=== PATIENT | female | born 1935 | race Caucasian/White ===

== ENCOUNTER 2020-10-20 11:56 | Outpatient (REF) | payer MEDICARE, SELFPAY ==
[2020-10-20 12:20] VITALS: BP 169/77; PULSE 69; RESP 16; TEMP 36.9; O2SAT 98; BMI 25.9
== END 2020-10-20 11:57 | disposition home or self-care (01) ==
LOC: HO.MS 11:56
PROVIDERS: PCP Internal Medicine; Visit Provider Ophthalmology
PROC: (CPT 66821; principal; 2020-10-20 13:50)
DX: H26.492 Other secondary cataract, left eye (principal); Z96.1 Presence of intraocular lens; I10 Essential (primary) hypertension; Z79.899 Other long term (current) drug therapy
CPT/HCPCS: 66821

== ENCOUNTER 2020-10-27 09:58 | Outpatient (REF) | payer MEDICARE, SELFPAY ==
[2020-10-27 10:11] VITALS: BP 183/85; PULSE 70; RESP 16; TEMP 36.1; O2SAT 98
[2020-10-27 11:15] VITALS: BMI 26.2
== END 2020-10-27 09:59 | disposition home or self-care (01) ==
LOC: HO.MS 09:58
PROVIDERS: PCP Internal Medicine; Visit Provider Ophthalmology
PROC: (CPT 66821; principal; 2020-10-27 13:50)
DX: H26.491 Other secondary cataract, right eye (principal); Z96.1 Presence of intraocular lens; H35.433 Paving stone degeneration of retina, bilateral; I10 Essential (primary) hypertension; Z79.899 Other long term (current) drug therapy
CPT/HCPCS: 66821

== ENCOUNTER 2023-08-17 13:14 | Outpatient (AMB) | payer MEDICARE, SELFPAY ==
--- NOTE | 2023-08-17 13:18 | MHC.OFFVIS ---
Vital Signs 08/17/23 13:21 08/17/23 13:28 Height 5 ft Weight 116 lb BMI 22.7 BP 112/73 Blood Pressure Location Lt brachial Lt brachial Position Sitting Sitting Respiration 14 Pulse 110 H Pulse Source Pulse Oximeter Pulse Oximeter Pulse Oximetry (%) 97 Oxygen Delivery Method Room Air Room Air Intake Visit Reasons: Low Back Pain/Spinal Stenosis Allergies perfume Allergy (Unknown, Unverified 08/17/23 13:25) UNKNOWN mirabegron [From Myrbetriq] Adverse Reaction (Intermediate, Verified 08/17/23 13:25) Nausea Medication List - Last Reconciled 08/17/23 by Xin Vinson diclofenac sodium 75 mg PO ONCE PRN diltiazem HCl ER 120 mg PO ONCE estradiol 0.01%(0.1mg/gram) 1 g vaginal 3XW hydroxyzine HCl 25 mg PO BID PRN metoprolol succinate ER 25 mg PO DAILY psyllium husk (Daily Fiber) 0.4 grams PO DAILY trazodone 50 mg PO BEDTIME PRN vitamins A,C,W-znve-fldhwv 4,296 mcg-226 mg-90 mg (PreserVision AREDS) 1 cap PO BID HPI Comments Details: Alessandra is a very pleasant 88-year-old female who presents to the office today for evaluation management of her chronic lower back pain Patient reports she has been suffering with this pain for many years. She has a history of L4-5 fusion after synovial cyst greater than 20 years ago. After the fusion she did not have pain again until a couple years ago. She endorses midline lower back pain that goes down both legs. Weakness and fatigue of the lower extremities. Worse with standing and walking. Improves with rest. Pain today is rated as a 9/10, constant throughout the day. Denies recent MRI. Underwent injections at [facility] for approximately 3 years, most recent was 1 year ago. She states that they were no longer effective. Did have positive spinal cord stimulator trial but did not want to proceed with implant. She is hesitant on procedures that require general anesthesia. She is currently taking diclofenac with minimal improvement of her symptoms. Completed physical therapy and continues with home exercise program. She states she has been very active in her home exercise program but the symptoms persist. Denies red flag symptoms including new loss of bowel, bladder or saddle anesthesia. In terms of muscle damage condition is described as jumping, stabbing, sharp, tingling, tiring, exhausting, aching, punishing, radiating. Pain is negatively impacting patient's enjoyment of life, general activity, normal function, walking and sleep Patient also endorses some burning, numbness and tingling to the bottoms of both feet. Diagnosed with peripheral neuropathy in the past. Worse in the night and often interferes with her sleep. Denies current use of anticoagulants. Denies implantable devices, pacemaker defibrillator. Denies current use of tobacco, nicotine, alcohol or illicit substances. [facility] Medical History (Updated 08/17/23 @ 14:20 by Lashonda Boyd APRN, ANNA MARIE) High cholesterol Hypertension Restless legs Arthritis Surgical History (Updated 08/17/23 @ 14:19 by Lashonda Boyd APRN, ANNA MARIE) History of lumbar fusion Review of Systems Const All systems reviewed & are unremarkable except as noted in HPI and below Physical Exam Vital Signs: Last Vital Signs Pulse 110 H 08/17/23 13:28 Resp 14 08/17/23 13:28 BP 112/73 08/17/23 13:28 Pulse Ox 97 08/17/23 13:28 Oxygen Delivery Method Room Air 08/17/23 13:28 BMI result Body Mass Index 22.7 General: awake, alert, oriented. Answers questions appropriately. Fully engaged in examination. Skin: warm, dry, intact HEENT: Normocephalic. Hearing intact. Cardiac: External chest normal in appearance. Respiratory: No cough, audible wheezing or stridor. Abdomen: without gross distension. MS: No obvious swelling or deformities. Able to stand on bilateral tiptoes and bilateral heels.? Able to transition from sit to stand unassisted. Ambulates with bilaterally normal heel strike and toe off Minimally tender to palpation midline lumbar vertebrae and lumbar paraspinal muscles SLR negative bilaterally Negative footdrop Negative clonus Bilateral lower extremity strength 5/5 Nontender over bilateral PSIS Neurological: Oriented to person, place, time and situation. Thought process intact. No gait abnormalities appreciated. Psychiatric: Appropriate mood and affect. Good judgment and insight. Assessment & Plan Assessment & Plan (1) Neurogenic claudication due to lumbar spinal stenosis: Code(s): M48.062 - Spinal stenosis, lumbar region with neurogenic claudication Category: Medical (2) Spinal stenosis: Code(s): M48.00 - Spinal stenosis, site unspecified Category: Medical (3) Peripheral neuropathy: Code(s): G62.9 - Polyneuropathy, unspecified Category: Medical (4) Post laminectomy syndrome: Code(s): M96.1 - Postlaminectomy syndrome, not elsewhere classified Category: Medical Plan Alessandra is a very pleasant 88 year old female who presented to the office today for evaluation management of her chronic lower back pain History, physical exam and provocative testing consistent with spinal stenosis with neurogenic claudication Records have been requested for review from [facility] where she previously underwent lumbar injections. MRI lumbar spine ordered for further evaluation Plan for fluoroscopy guided caudal epidural steroid injection with local anesthetic pending review of MRI results. Patient also suffering with bilateral peripheral neuropathy. Discussed options for treatment. Will submit PA for Qutenza topical application. Patient advised on procedure including preparation and EMLA application prior to appointment. She is aware treatment is done in office and he will be here for 30minutes during each visit. All questions and concerns were answered, patient agrees with the plan. Follow-up as planned for topical capsaicin and MRI follow-up. Orders: Orders MR lumbar spine wo con Today M48.062 - Spinal stenosis, lumbar region with neurogenic claudication Coding Level of Care Code New Pt Level 4 (59343) Diagnoses Neurogenic claudication due to lumbar spinal stenosis M48.062 Spinal stenosis M48.00 Peripheral neuropathy G62.9 Post laminectomy syndrome M96.1
[2023-08-17 13:28] VITALS: BP 112/73; PULSE 110; RESP 14; O2SAT 97; BMI 22.7
== END 2023-08-17 13:59 | disposition home or self-care (01) ==
PROVIDERS: PCP Internal Medicine; Visit Provider Registered Nurse Emergency
DX: M48.062 Spinal stenosis, lumbar region with neurogenic claudication (principal); M48.00 Spinal stenosis, site unspecified; G62.9 Polyneuropathy, unspecified; M96.1 Postlaminectomy syndrome, not elsewhere classified
CPT/HCPCS: 99204

== ENCOUNTER → 2023-08-17 13:14 | Outpatient (BNVA) | payer MEDICARE, SELFPAY | PROVIDERS: PCP Internal Medicine; Visit Provider Registered Nurse Emergency | DX: M48.062 Spinal stenosis, lumbar region with neurogenic claudication (principal); G62.9 Polyneuropathy, unspecified; M96.1 Postlaminectomy syndrome, not elsewhere classified | CPT/HCPCS: 99202 ==

== ENCOUNTER 2023-09-26 15:37 | Outpatient (REF) | payer MEDICARE, SELFPAY ==
--- NOTE | ~2023-09-26 | MR_ITS ---
EXAMINATION: MR LUMBAR SPINE WITHOUT CONTRAST CLINICAL INFORMATION: Chronic severe lower back pain, leg pain COMPARISON: None TECHNIQUE: MRI of the lumbar spine was obtained using routine sequences without contrast. FINDINGS: Mild rightward curvature of the lumbar spine. Mild right lateral listhesis of L3 on L4 and L4 on L5. Trace anterolisthesis of L3 on L4 and grade 1 anterolisthesis of L4 on L5. No suspicious marrow signal or focal osseous lesion. Mixed type 1 and type 2 signal changes at L3-L4. The vertebral body heights are maintained. Multilevel disc dessication and height loss. The conus medullaris terminates at the level of L1-L2. The distal spinal cord is normal in appearance. The cauda equina nerve roots appear normal. Atrophy of the paravertebral musculature at the lumbosacral junction is noted. 2.5 cm subcutaneous nodule in the right dorsal soft tissues at the lumbosacral junction which extends to the skin surface and likely represents a sebaceous cyst. Limited evaluation of the intra-abdominal structures without significant abnormalities. Bilateral renal cysts for which no further imaging follow-up is recommended. The abdominal aorta is of normal contour and caliber. SPINAL LEVELS: Visualized only on sagittal imaging, small disc protrusions from T8-T9 to T10-T11 partially indents the ventral thecal sac but do not contribute to significant spinal canal stenosis. L1-L2: No significant spinal canal or neuroforaminal narrowing. Mild facet arthropathy. L2-L3: No significant spinal canal or neuroforaminal narrowing. Shallow disc bulge and mild facet arthropathy. L3-L4: Anterolisthesis of posterior disc and covering. Severe facet arthropathy. Ligament flavum thickening. Mild central spinal canal stenosis. Subarticular zone narrowing with impingement of the traversing L4 nerve roots. Moderate right and severe left neural foraminal narrowing with impingement of the exiting left L3 nerve root. L4-L5: Post laminectomy changes. Anterolisthesis of posterior disc and covering. Severe facet arthropathy. No significant central spinal canal stenosis. Moderate bilateral neural foraminal narrowing. L5-S1: Moderate facet arthropathy with bilateral joint effusions, right greater than left. Left eccentric disc bulge. No significant central spinal canal stenosis. Severe right neural foraminal narrowing with impingement of the exiting right L5 nerve root. MR/MR lumbar spine wo con IMPRESSION: 1. Multilevel lumbar spondylosis as described above, worst at L3-L4 where there is mild spinal canal stenosis, subarticular zone narrowing with impingement of the traversing L4 nerve roots, and moderate right and severe left neural foraminal narrowing with impingement of the exiting left L3 nerve root. 2. At L4-L5, there are post laminectomy changes and grade 1 anterolisthesis of L4 on L5 without significant spinal canal stenosis. There is moderate bilateral neural foraminal narrowing at this level. 3. At L5-S1, there is severe right neural foraminal narrowing with impingement of the exiting right L5 nerve root. Electronically signed by: Isreal Rodrigues MD 10/06/2023 11:09 AM EDT
== END 2023-09-26 15:38 | disposition home or self-care (01) ==
LOC: HO.MRI 15:37
PROVIDERS: PCP Internal Medicine; Visit Provider Registered Nurse Emergency
DX: M48.062 Spinal stenosis, lumbar region with neurogenic claudication (principal)
CPT/HCPCS: 72148

== ENCOUNTER 2023-10-07 10:43 | Outpatient (AMB) | payer MEDICARE, SELFPAY ==
[2023-10-07 10:59] VITALS: BP 182/77; PULSE 73; O2SAT 98; BMI 23.4
--- NOTE | 2023-10-07 10:59 | MHC.OFFVIS ---
Vital Signs 10/07/23 10:59 Height 5 ft Weight 120 lb BMI 23.4 BP 182/77 H Blood Pressure Location Lt brachial Position Sitting Pulse 73 Pulse Source Pulse Oximeter Pulse Oximetry (%) 98 Oxygen Delivery Method Room Air Intake Visit Reasons: MRI results Allergies perfume Allergy (Unknown, Unverified 10/07/23 10:59) UNKNOWN mirabegron [From Myrbetriq] Adverse Reaction (Intermediate, Verified 10/07/23 10:59) Nausea Medication List - Last Reconciled 10/07/23 by Xin Vinson diclofenac sodium 75 mg PO ONCE PRN diltiazem HCl ER 120 mg PO ONCE estradiol 0.01%(0.1mg/gram) 1 g vaginal 3XW hydroxyzine HCl 25 mg PO BID PRN metoprolol succinate ER 25 mg PO DAILY psyllium husk (Daily Fiber) 0.4 grams PO DAILY trazodone 50 mg PO BEDTIME PRN vitamins A,C,J-jrsr-xzvodz 4,296 mcg-226 mg-90 mg (PreserVision AREDS) 1 cap PO BID HPI Comments Details: Patient presents back to the office today for follow-up, review of recent MRI MRI reviewed, results as per below Records from [facility] have been reviewed and discussed with patient today Pain today is rated as a 5/10, constant throughout the day. Worse with standing and walking. She reports the pain is impacting her activities of daily living, general activity, mood and ability to care for herself Previously underwent multiple rounds of steroid injections at [facility], eventually the stopped working for her Had a successful Nevro spinal cord stimulator trial that improved her pain, function and mobility. She was hesitant to proceed with surgery due to risks associated with anesthesia therefore she never returned for follow up at [facility] to schedule implant Denies red flag symptoms including new loss of bowel, bladder or saddle anesthesia Denies change in medications, diagnoses or allergies Intake note: Alessandra is a very pleasant 88-year-old female who presents to the office today for evaluation management of her chronic lower back pain Patient reports she has been suffering with this pain for many years. She has a history of L4-5 fusion after synovial cyst greater than 20 years ago. After the fusion she did not have pain again until a couple years ago. She endorses midline lower back pain that goes down both legs. Weakness and fatigue of the lower extremities. Worse with standing and walking. Improves with rest. Pain today is rated as a 9/10, constant throughout the day. Denies recent MRI. Underwent injections at [facility] for approximately 3 years, most recent was 1 year ago. She states that they were no longer effective. Did have positive spinal cord stimulator trial but did not want to proceed with implant. She is hesitant on procedures that require general anesthesia. She is currently taking diclofenac with minimal improvement of her symptoms. Completed physical therapy and continues with home exercise program. She states she has been very active in her home exercise program but the symptoms persist. Denies red flag symptoms including new loss of bowel, bladder or saddle anesthesia. In terms of muscle damage condition is described as jumping, stabbing, sharp, tingling, tiring, exhausting, aching, punishing, radiating. Pain is negatively impacting patient's enjoyment of life, general activity, normal function, walking and sleep Patient also endorses some burning, numbness and tingling to the bottoms of both feet. Diagnosed with peripheral neuropathy in the past. Worse in the night and often interferes with her sleep. Denies current use of anticoagulants. Denies implantable devices, pacemaker defibrillator. Denies current use of tobacco, nicotine, alcohol or illicit substances. [facility] Medical History (Updated 08/17/23 @ 14:20 by Lashonda Boyd APRN, ANNA MARIE) High cholesterol Hypertension Restless legs Arthritis Surgical History (Updated 08/17/23 @ 14:19 by Lashonda Boyd APRN, ANNA MARIE) History of lumbar fusion Review of Systems Const All systems reviewed & are unremarkable except as noted in HPI and below Physical Exam Vital Signs: Last Vital Signs Pulse 73 10/07/23 10:59 BP 182/77 H 10/07/23 10:59 Pulse Ox 98 10/07/23 10:59 Oxygen Delivery Method Room Air 10/07/23 10:59 BMI result Body Mass Index 23.4 General: awake, alert, oriented. Answers questions appropriately. Fully engaged in examination. Skin: warm, dry, intact HEENT: Normocephalic. Hearing intact. Cardiac: External chest normal in appearance. Respiratory: No cough, audible wheezing or stridor. Abdomen: without gross distension. MS: No obvious swelling or deformities. Able to stand on bilateral tiptoes and bilateral heels.? Able to transition from sit to stand unassisted. Ambulates with bilaterally normal heel strike and toe off Minimally tender to palpation midline lumbar vertebrae and lumbar paraspinal muscles SLR negative bilaterally Negative footdrop Negative clonus Bilateral lower extremity strength 5/5 Nontender over bilateral PSIS Neurological: Oriented to person, place, time and situation. Thought process intact. No gait abnormalities appreciated. Psychiatric: Appropriate mood and affect. Good judgment and insight. Results Reviewed Results Reviewed: 09/26/23 MR/MR lumbar spine wo con FINDINGS: Mild rightward curvature of the lumbar spine. Mild right lateral listhesis of L3 on L4 and L4 on L5. Trace anterolisthesis of L3 on L4 and grade 1 anterolisthesis of L4 on L5. No suspicious marrow signal or focal osseous lesion. Mixed type 1 and type 2 signal changes at L3-L4. The vertebral body heights are maintained. Multilevel disc dessication and height loss. The conus medullaris terminates at the level of L1-L2. The distal spinal cord is normal in appearance. The cauda equina nerve roots appear normal. Atrophy of the paravertebral musculature at the lumbosacral junction is noted. 2.5 cm subcutaneous nodule in the right dorsal soft tissues at the lumbosacral junction which extends to the skin surface and likely represents a sebaceous cyst. Limited evaluation of the intra-abdominal structures without significant abnormalities. Bilateral renal cysts for which no further imaging follow-up is recommended. The abdominal aorta is of normal contour and caliber. SPINAL LEVELS: Visualized only on sagittal imaging, small disc protrusions from T8-T9 to T10-T11 partially indents the ventral thecal sac but do not contribute to significant spinal canal stenosis. L1-L2: No significant spinal canal or neuroforaminal narrowing. Mild facet arthropathy. L2-L3: No significant spinal canal or neuroforaminal narrowing. Shallow disc bulge and mild facet arthropathy. L3-L4: Anterolisthesis of posterior disc and covering. Severe facet arthropathy. Ligament flavum thickening. Mild central spinal canal stenosis. Subarticular zone narrowing with impingement of the traversing L4 nerve roots. Moderate right and severe left neural foraminal narrowing with impingement of the exiting left L3 nerve root. L4-L5: Post laminectomy changes. Anterolisthesis of posterior disc and covering. Severe facet arthropathy. No significant central spinal canal stenosis. Moderate bilateral neural foraminal narrowing. L5-S1: Moderate facet arthropathy with bilateral joint effusions, right greater than left. Left eccentric disc bulge. No significant central spinal canal stenosis. Severe right neural foraminal narrowing with impingement of the exiting right L5 nerve root. IMPRESSION: 1. Multilevel lumbar spondylosis as described above, worst at L3-L4 where there is mild spinal canal stenosis, subarticular zone narrowing with impingement of the traversing L4 nerve roots, and moderate right and severe left neural foraminal narrowing with impingement of the exiting left L3 nerve root. 2. At L4-L5, there are post laminectomy changes and grade 1 anterolisthesis of L4 on L5 without significant spinal canal stenosis. There is moderate bilateral neural foraminal narrowing at this level. 3. At L5-S1, there is severe right neural foraminal narrowing with impingement of the exiting right L5 nerve root. Assessment & Plan Assessment & Plan (1) Spinal stenosis: Code(s): M48.00 - Spinal stenosis, site unspecified Category: Medical (2) Peripheral neuropathy: Code(s): G62.9 - Polyneuropathy, unspecified Category: Medical (3) Post laminectomy syndrome: Code(s): M96.1 - Postlaminectomy syndrome, not elsewhere classified Category: Medical Plan Alessandra is a very pleasant 88 year old female who presented to the office today for follow-up lower back pain and review of recent MRI MRI reviewed, results as per above Records from [facility] have been reviewed. Patient has exhausted conservative therapy including PT, home exercise program, nonsteroidal anti-inflammatory medications, injections Discussed at length the patient's diagnosis and treatment options. She has successfully undergone Nevro spinal cord stimulator trial at [facility]. She would like to proceed with implant at this time. Mental health clearance has been completed. We will schedule for fluoroscopy guided Nevro spinal cord stimulator implant with anesthesia All questions and concerns were answered, patient agrees with the plan. Follow up after procedure, sooner if needed Coding Level of Care Code Est Pt Level 3 (19102) Complex EM visit Add On G2211 Diagnoses Spinal stenosis M48.00 Peripheral neuropathy G62.9 Post laminectomy syndrome M96.1
== END 2023-10-07 11:38 | disposition home or self-care (01) ==
PROVIDERS: PCP Internal Medicine; Referring Provider Registered Nurse; Visit Provider Registered Nurse Emergency
DX: M48.00 Spinal stenosis, site unspecified (principal); G62.9 Polyneuropathy, unspecified; M96.1 Postlaminectomy syndrome, not elsewhere classified
CPT/HCPCS: 99213; G2211

== ENCOUNTER → 2023-10-07 10:43 | Outpatient (BNVA) | payer MEDICARE, SELFPAY | PROVIDERS: PCP Internal Medicine; Referring Provider Registered Nurse; Visit Provider Registered Nurse Emergency | DX: M48.00 Spinal stenosis, site unspecified (principal); G62.9 Polyneuropathy, unspecified; M96.1 Postlaminectomy syndrome, not elsewhere classified | CPT/HCPCS: 99212 ==

== ENCOUNTER 2024-01-16 10:13 | Outpatient (AMB) | payer MEDICARE, SELFPAY ==
--- NOTE | 2024-01-16 10:29 | MHC.OFFWIV ---
Intake Vital Signs 01/16/24 10:39 Weight 120 lb BP 118/72 Blood Pressure Location Rt brachial Position Sitting Pulse 107 H Pulse Source Pulse Oximeter Pulse Oximetry (%) 98 Oxygen Delivery Method Room Air Intake Visit Reasons: EP Pressure under breasts Intake Note: Patient here for pressure/pain under breast that recently started. Patient Tobacco Use Status: Never used Tobacco Allergies perfume Allergy (Unknown, Unverified 01/16/24 10:37) UNKNOWN mirabegron [From Myrbetriq] Adverse Reaction (Intermediate, Verified 01/16/24 10:37) Nausea Do you need a note to return to daycare/school/sports/work: No HPI EP Pressure under breasts HPI Details This note is constructed using voice recognition software. While every effort has been made to ensure accuracy, classroom instructional aide errors may have been included. The patient is a 88 year old female who presents to the clinic today with epigastric pain since this morning. She notes she and her both had diarrhea last night. She denies n/v, BRBPR. She reports the pain to feel like a squeeze sensation in the epigastric region, nothing seems to make it worse, has not tried intervention yet. [facility] Medical History (Updated 08/17/23 @ 14:20 by Lashonda Boyd APRN, ANNA MARIE) High cholesterol Hypertension Restless legs Arthritis Surgical History (Updated 08/17/23 @ 14:19 by Lashonda Boyd APRN, ANNA MARIE) History of lumbar fusion Social History Patient Tobacco Use Status: Never used Tobacco Review of Systems Const All systems reviewed & are unremarkable except as noted in HPI and below Physical Exam Vital Signs: Last Vital Signs Pulse 107 H 01/16/24 10:39 BP 118/72 01/16/24 10:39 Pulse Ox 98 01/16/24 10:39 Oxygen Delivery Method Room Air 01/16/24 10:39 Const General: cooperative, healthy appearing, comfortable, no acute distress and well developed Orientation/consciousness: patient oriented x3 Limitations: no limitations HEENT Head: Yes normal to inspection Neck Neck: Yes normal visual inspection Resp Effort & Inspection: normal respiratory effort and able to speak in complete sentences Auscultation: clear to auscultation bilaterally Cardio Jugular venous distension: no JVD Rate: regular rate Rhythm: regular rhythm Heart sounds: S1 normal heart sound present, S2 normal heart sound present and normal S1 and S2 GI Inspection: Yes normal to inspection Palpation (GI): Soft to palpation and Tenderness to palpation present (GI) in the epigastrum Percussion: Yes normal to percussion Auscultation: normal bowel sounds Skin General skin exam: no rashes or lesions noted Neuro General: patient oriented x3 Psych Appearance: grossly normal Attitude: cooperative Assessment & Plan Assessment & Plan (1) Acid reflux: Code(s): K21.9 - Gastro-esophageal reflux disease without esophagitis Qualifiers: Esophagitis presence: without esophagitis Qualified Code(s): K21.9 - Gastro-esophageal reflux disease without esophagitis Plan: Advised avoidance acidic foods, carbonated beverages, large meals, or anything to eat or drink within 2-3 hours of lying down. Consider trial famotidine for at least 2 weeks, for symptomatic management and then p.r.n. after that. Advised patient to follow up worsening or failure to resolve. Plan See above for full details and plan. Coding Level of Care Code Est Pt Level 3 (81602) Diagnoses Gastroesophageal reflux disease without esophagitis K21.9 Esophagitis presence: without esophagitis
[2024-01-16 10:39] VITALS: BP 118/72; PULSE 107; O2SAT 98
--- OUTSIDE RECORDS SUMMARY | 2024-01-18 14:24 | XMS_ITS ---
Author Organization [facility] Address [address] [facility] [place] [address] Care Team Providers Care Barrel Endshake Adjuster Name Role Phone Wenceslao Aquino MD Primary Care Provider Dallin Sharpe Unavailable [phone] Allergies Allergen (clinical drug ingredient) Drug/Non Drug Allergy documented on EMR Reaction Allergy Type Onset Date Status ePHEDrine HCl rapid heart rate Drug Allergy Active Adhesive Tape rash Drug Allergy Act gianluca REASON FOR VISIT At Risk Footcare, Painful Nail(s) aggrevated by shoes and causing difficulty standing/walking., Skin problem(s) Medications Medication SIG (Take, Route, Frequency, Duration) Notes Start Date End Date Status Doxycycline Hyclate 100 MG Oral for 10 Not-Taking Yuvafem 10 MCG Vaginal for 84 Not-Taking Boostrix 5-2.5-18.5 Intramuscular for 1 Not-Taking Ammonium Lactate 12 % 1 application Externally to feet except for between the toes Twice a day for 30 days Active predniSONE 20 MG Oral for 10 N ot-Taking Ranitidine PRN Not-Takin g Gabapentin 300 MG Orally No t-Taking Chlorthalidone 25 MG 1 tablet in the morning with food Orally Once a day for 30 day(s) Water Pill Not-Taking Ammonium Lactate 12 % APPLY CREAM TOPICA LLY TO AFFECTED AREA TWICE DAILY TO FEET for 30 Active potassium Not-Taking Diclofenac Sodium 75 MG Oral for 90 Not-Taking MiraLax Active Multivitamin Active Metoprolol Succinate ER 50 MG Oral for 90 Active dilTIAZem HCl ER Coated Beads 180 MG 1 capsule Orally Once a day Active Calcium + D Active Atorvastatin Calcium Active Align Active Ciclopirox Olamine 0.77 % 1 application Externally Twice a day for 30 days Active Methadone HCl Tyrone-Tiago fam Social History Tobacco Use: Social History Observation Description Date Details (start date - stop date) Never Smoker NA - NA Tobacco Use/Smoking Question Answer Notes Are you a: nonsmoker Additional Findings: Tobacco Non-User Current no n-smoker Alcohol Screen Question Answer Notes Did you have a drink contain ing alcohol in the past year? Yes How often did you have 6 or more drinks on one occasion in the past year? Less than monthly (1 point) Points 1 Interpretation Negative Tobacco use other than smoking: Question Answer Notes Are you an other tobacco user? No Vital Signs Height 5 ft 1.5 in in 11/04/2023 Procedures Procedure Date Ordered Date Performed Result Body Sit e 28120-OZNOZEG NAIL, 6 OR MORE 11/04/2023 N/A 91479-BMRO SKIN LESIONS, OVER 4 11/04/2023 N/A Encounters Encounter Location Date Provider Diagnosis [facility] [place] [address] [place] [address] 11/04/2023 Dallin Alvarado Atherosclerosis of northwestern shoshone artery of both lower extremities, with unspecified presence of clinical manifestation I70.203 ; Onychomycosis B35.1 ; Pain of toe of right foot M79.674 ; Pain of toe of left foot M79.675 and Xerosis of skin L85.3 Assessments Encounter Date Diagnosis (ICD Code) Assessment Notes Treatment Notes Treatment Clinical Notes Section Notes 11/04/2023 Atherosclerosis of northwestern shoshone artery of both lower extremities, with unspecified presence of clinical manifestation (ICD-10 - I70.203) 11/04/2023 Onychomycosis (ICD-10 - B35.1) 11/04/2023 Pain of toe of right foot (ICD-10 - M79.674) 11/04/2023 Pain of toe of left foot (ICD-10 - M79.675) 11/04/2023 Xerosis of skin (ICD-10 - L85.3) Plan Of Treatment Medication Medication Name Sig Start Date Stop Date Notes Ammonium Lactate 12 % 1 application Exte rnally to feet except for between the toes Twice a day for 30 days Pending Test Test Name Order Date [id number]-XJUPQWX NAIL, 6 OR MORE 11/04/2023 41338-LCDT SKIN LESIONS, OVER 4 11/04/19 24 Next Appt Details Follow Up: prn, Reason: Provider Name:Dallin V Jenny , 02/14/2024 10:00:00 AM, [address] [facility], [place], [address], Procedure Notes * Category Sub-Category Detail Notes Debride Nail 6-10 Nail debridement Performance o f this nail treatment by a nonprofessional would put this patients foot and overall health at risk. Therefore, nail debridement was performed extensively to reduce/remove overall nail length, girth, thickness, subungual debris, and necrotic tissue, by manual and/or electrical means through the use of a nail nipper and/or dremel-type knife grinder, to a more viable healthy nail plate or bed tissue 6-10. Silver nitrate used for any petechial bleeding as necessary. Definitive antifungal treatment options have been reviewed and discussed with the patient. The patient chooses, no pharmaceutical tx - 63568 Keratoma Treatment Parring or Cutting o f Benign Hyperkeratotic Lesion(s) (-57) More than 4 Lesions - The Benign hyperkeratotic lesions, as described above were pared, and/or cut utilizing a sterile 15 blade, tissue nippers, and/or dremel - 88976 , Q8 Progress Notes * Rafia EDWARDS EDOB: [birth year] (88 yo F)Acc No.[id number]:11/04/2023 Progress Note Patient:?Rafia Edwarsd Provider:?Dallin Alvarado DPM :1935???Age:88 Y???Sex:Female D ate:11/04/2023 Address:[address] [place] [address], [place], [place] Pcp:Wenceslao Aquino MD Subjective: * Chief Complaints: * ???At Risk FootcarePainful N ail(s) aggrevated by shoes and causing difficulty standing/walking.Skin problem(s) * HPI: ???At Risk footcare:?Pt States Last PCP Visit:?Date?08/22/2023 ???Skin problems:?Nature:?dryness , scaling.?Location:?B/L .?Duration:?several days.?Course:?worse.? * ROS:?General/Constitutional:?Nausea?denies.?Vomiting?denies.?Hunger Thirst?denies.?Loss appetite?denies.?Chills?denies.?Fatigue?admits.?Fever?denies.?Night Sweats?are intermittent, admits.?Unexplained weight loss?denies.?Unexplained weight gain?denies.?HEENTM:?Dentures?admits.?Dizziness?denies.?Glasses/contacts?admits.?Retinopathy?de nies.?Blurred/double vision?denies.?TMJ?denies.?Discharge/drainage?denies.?Implants?denies.?Sore throat?denies.?Dental implants?denies.?Hard of hearing ?denies.?Difficulty chewing/swallowing/speaking?denies.?Nose bleeds?denies.?Sore mouth?denies.?Respiratory:?On Oxygen?denies.?Pneumonia/pleurisy?denies.?Bronchitis?denies.?Emphysema?denies.?C oughing?denies.?Cough blood?denies.?Shortness of breath?denies.?Wheezing?denies.?Cardiovascular:?Pacemaker?denies.?MVP?denies.?WPW?denies.?CHF?denies.?Heart attack?denies.?Septal defect?denies.?Rapid beat?denies.?Chest pain ?denies.?Atrial Fib.?denies.?Murmur/Palpitations?denies.?Gastrointestinal:?Hemorrhoids?denies.?Stomach/Abdominal pain?denies.?Dark blood stool?denies.?Irritable bowel ?denies.?Constipation?admits.?Diarrhea?admits.?Hematology:?Swelling?admits.?Clots?denies.?Varicose Veins?denies.?Bruising?denies.?Bleeding problem?denies.?Genitourinary:?Blood urine?denies.?Frequent/Painfu/urination/bladder control?denies.?Kidney stones?denies.?Infection (UTI)?denies.?Nephropathy?denies.?sex trans dis (STD)?denies.?Prostate?denies.?Musculoskeletal:?Hammertoes?denies.?Bunions?denies.?Back Pain?denies.?Muscle Cramps/ Resting?denies.?Muscle cramps / walking?denies.?Generalized aches and pains?denies.?Weakness?denies.?Integ.:?Kent?denies.?Scars?denies.?Corns/calluses?admits.?Ingrown nails?admits.?Painful nails?admits.?Open Sores?denies.?Rashes?denies.?Neurologic:?Difficulty sleeping?admits.?Brain disorder?denies.?Numbness?denies.?Balance trouble?denies.?Confusion?denies.?Fainting/blackouts?denies.?Tingling?denies.?Tr emors?admits.? * Medical History:? * Surgical History:?spinal fus ion L4 & L5 2007left hip replacement 2013right hip replacement 2014cataract surgery 2015basal cell removal on face 2016growth removed head 04/2022 * Hospitalization/Major Diagno stic Procedure:?Denies Past Hospitalization * Family History:?Mother: dece ased, defects, diagnosed with Family history of arthritis, Other malignant neoplasm of unspecified site.?Father: , diagnosed with Diabetic - NIDDM.? * Social History:?Tobacco Use:?Tobacco Use/Smoking?Are you a:?nonsmoker ?Additional Findings: Tobacco Non-User?Current non-smoker ?Tobacco use other than smoking?Are you an other tobacco user??No ???Drugs/Alcohol:?Drugs?Have you used drugs other than those for medical reasons in the past 12 months??No ?Alcohol Screen?Did you have a drink containing alcohol in the past year??Yes ?How often did you have 6 or more drinks on one occasion in the past year??Less than monthly (1 point) ?Points?1 ?Interpretation?Negative ???Miscellaneous:?Caffeine: yes, frequency:, 1-2 cups per day. ?Children: yes, 4. ?Exercise: yes, housework, walking. ?Marital status: . ?Occupation: Retired-, RN. * Medications:?TakingCiclopiro x Olamine 0.77 % Cream 1 application Externally Twice a dayAlign Atorvastatin Calcium Calcium + D dilTIAZem HCl ER Coated Beads 180 MG Capsule Extended Release 24 Hour 1 capsule Orally Once a dayMetoprolol Succinate ER 50 MG Tablet Extended Release 24 Hour Oral Multivitamin MiraLax Ammonium Lactate 12 % Cream APPLY CREAM TOPICALLY TO AFFECTED AREA TWICE DAILY TO FEET Taking Ciclopirox Olamine 0.77 % Cream 1 application Externally Twice a dayTaking Align Taking Atorvastatin Calcium Taking Calcium + D Taking dilTIAZem HCl ER Coated Beads 180 MG Capsule Extended Release 24 Hour 1 capsule Orally Once a dayTaking Metoprolol Succinate ER 50 MG Tablet Extended Release 24 Hour Oral Taking Multivitamin Taking MiraLax Taking Ammonium Lactate 12 % Cream APPLY CREAM TOPICALLY TO AFFECTED AREA TWICE DAILY TO FEET Not-Taking/PRNMethadone HCl Diclofenac Sodium 75 MG Tablet Delayed Release Oral potassium Chlorthalidone 25 MG Tablet 1 tablet in the morning with food Orally Once a day, Notes: Water PillGabapentin 300 MG Capsule Orally Ranitidine , Notes: PRNYuvafem 10 MCG Tablet Vaginal Doxycycline Hyclate 100 MG Tablet Oral predniSONE 20 MG Tablet Oral Boostrix 5-2.5-18.5 Suspension Intramuscular Not-Taking/PRN Methadone HCl Not-Taking/PRN Diclofenac Sodium 75 MG Tablet Delayed Release Oral Not-Taking/PRN potassium Not-Taking/PRN Chlorthalidone 25 MG Tablet 1 tablet in the morning with food Orally Once a day, Notes: Water PillNot- Taking/PRN Gabapentin 300 MG Capsule Orally Not-Taking/PRN Ranitidine , Notes: PRNNot- Taking/PRN Yuvafem 10 MCG Tablet Vaginal Not-Taking/PRN Doxycycline Hyclate 100 MG Tablet Oral Not-Taking/PRN predniSONE 20 MG Tablet Oral Not-Taking/PRN Boostrix 5-2.5-18.5 Suspension Intramuscular * Allergies:?Adhesive Tape: ra shePHEDrine HCl: rapid heart rateyes[Allergies Verified] Objective: * Vitals:?Ht: 5 ft 1.5 in. * Examination: ???Vascular: ?DP PULSES(B):?0/4, RIGHT, 1/4, LEFT.?PT PULSES(B):? 0/4, B/L.?CAPILLARY FILL TIME:? delayed, all digits, B/L.?TROPHIC CONDITION-TEXTURE/ELASTICITY/TURGOR/HAIR GROWTH(B):? decreased, with sparse to absent hair growth, B/L.?TEMPERTURE GRADIENT(C):? decreased, cool to cool, proximal to distal, B/L.?PIGMENTATION:? pale, B/L.?EDEMA(C):?absent, B/L.?CLAUDICATION(C):?denies, B/L.?REST PAIN:?denies, B/L.?Nails: ?NAILS are:? Elongated, overgrown, dystrophic, lytic, greater than 3mm thick, discolored and friable with crumbly malodorous subungual debris, with pain on palpation, 1-5 B/L.?Dermatologic: ?SKIN FINDINGS:?Skin exam reveals Keratotic lesion(s) located at, Medial, IPJ, TA, Medial, IPJ, T5, SUB MTH (s), 1, B/L , Heel(s), B/L , Skin shows sign(s) of, dryness, scaling, in a stocking fashion, no fissure(s) present, B/L.? Assessment: * Assessment: 1.?Onychomycosis - B35.1?2.? Atherosclerosis of northwestern shoshone artery of both lower extremities, with unspecified presence of clinical manifestation - I70.203?3.?Pain of toe of right foot - M79.674?4.?Pain of toe of left foot - M79.675?5.?Xerosis of skin - L85.3, Acute problem, Uncomplicated (3),Rx Management (4)? Plan: * Treatment: 2.?Atherosclerosis of northwestern shoshone artery of both lower extremities, with unspecified presence of clinical manifestation?Procedure: 21690-YENH SKIN LESIONS, OVER 4 3.?Xerosis of skin? Start Ammonium Lactate Cream, 12 %, 1 application, Externally to feet except for between the toes, Twice a day, 30 days, 140, Refills 2.?? * Procedures:?Debride Nail 6-10:?Nail debridement?Performance of this nail treatment by a nonprofessional would put this patients foot and overall health at risk. Therefore, nail debridement was performed extensively to reduce/remove overall nail length, girth, thickness, subungual debris, and necrotic tissue, by manual and/or electrical means through the use of a nail nipper and/or dremel-type knife grinder, to a more viable healthy nail plate or bed tissue 6-10. Silver nitrate used for any petechial bleeding as necessary. Definitive antifungal treatment options have been reviewed and discussed with the patient. The patient chooses, no pharmaceutical tx - 32489.?Keratoma Treatment:?Parring or Cutting of Benign Hyperkeratotic Lesion(s)?(-57) More than 4 Lesions - The Benign hyperkeratotic lesions, as described above were pared, and/or cut utilizing a sterile 15 blade, tissue nippers, and/or dremel - 41177 , Q8.? * Procedure Codes:?12546 DEBRI DE NAIL, 6 OR MORE, Modifiers: XS 15672 TRIM SKIN LESIONS, OVER 4, Modifiers: XS , Q8 * Preventive Medicine:? ??Counseling:?Discussion:?-13: Office or other outpatient visit for the evaluation and management of an established patient, which required a medically appropriate history and/or examination and LOW level of DECISION MAKING for: 1 STABLE ACUTE UNCOMPLICATED PROBLEM, 2 OR MORE MINOR PROBLEMS, OR 1 STABLE CHRONIC PROBLEM, THAT POSE(S) A LOW RISK FOR MORBIDITY/MORTALITY. The visit on the day of the encounter encompassed interpreting the data and educating the patient as to the nature of their condition, treatment options available according to their individual PMH, meds, allergies, and overall health/living conditions, as well as any potential risks or complications that may occur from a failure to adhere to, and participate in, the recommended course of therapy. The discussion included a complete verbal, and/or written explanation of the examination results, any x-rays taken, the proposed diagnosis, and outline of the treatment plan. A schedule for future care needs was also explained. The patient verbalized an understanding of the instructions at this time and agreed to be an active participant in their treatment. If the patient should think of any questions or concerns after the visit, I have encouraged the patient to call the office.?Xerosis:?The patient was counseled on the diagnosis, potential etiologies, and treatment options for their skin condition. We discussed the risks and benefits of each option from performing no treatment, to utilizing OTC topical skin creams/ointments, to utilizing prescription topical creams/ointments, to utilizing customized compounded topical medications and use of nocturnal occlusion with any/all previously detailed therapies. We discussed the advantages and disadvantages of each possible treatment and importance for adherence to all the recommended therapies for optimum success and avoid potential complications such as open sore/infection/possible hospitalization. We discussed the potential effectiveness of each topical preparation as well as each ones possible side effects and/or patient medication interactions. Patient questions re: use, dosage, successful outcomes, and application consistency were reviewed and the patient verbalized that all answers were clearly understood. The patient has decided to apply Rx skin creams to their feet save the interspaces while paying special attention to the heels. Such was sent to their pharmacy at the time of visit.? * Follow Up:?prn * Images: * Sign off status: Completed true * Provider:Smith Alvarado DPM Date:?2023 Generated for Terell larkin/Sarah Beth/Ravi on:?01/18/2024 02:23 PM EST History and Physical Notes * HPI (History of Present Illness) Category Sub-Category Detail Notes Category Not es Skin problems Nature: dryness , scaling Location: B/L Duration: several days Course: worse At Risk footcare Pt States Last PCP Visit: Date: Examination Category Sub-Category Detail Notes Category Not es Dermatologic SKIN FINDINGS: Skin exam reveal s Keratotic lesion(s) located at, Medial, IPJ, TA, Medial, IPJ, T5, SUB MTH (s), 1, B/L , Heel(s), B/L , Skin shows sign(s) of, dryness, scaling, in a stocking fashion, no fissure(s) present, B/L Vascular DP PULSES(B): 0/4, RIGHT, 1/4, LEFT PT PULSES(B): 0/4, B/L CAPILLARY FILL TIME: delayed, all digits , B/L TEMPERTURE GRADIENT(C): decreased, cool to cool, proximal to distal, B/L TROPHIC CONDITION-TEXTURE/ELASTICITY/TURGOR/HAIR GROWTH(B): decreased, with sparse to absent hair gr owth, B/L EDEMA(C): absent, B/L CLAUDICATION(C): denies, B/L REST PAIN: denies, B/L PIGMENTATION: pale, B/L Nails NAILS are: Elongated, overg rown, dystrophic, lytic, greater than 3mm thick, discolored and friable with crumbly malodorous subungual debris, with pain on palpation, 1-5 B/L
--- OUTSIDE RECORDS SUMMARY | 2024-01-18 14:24 | XMS_ITS ---
Author Organization [facility] [place] Address [address] [place] [address] Care Team Providers Care Chute Feeder Name Role Phone Wenceslao Aquino MD Primary Care Provider Dallin Sharpe Unavailable [phone] lezama Encounters Encounter Location Date Provider Diagnosis [address] [address] 06/24/2023 Dallin Alvarado Plan Of Treatment Next Appt Details Provider Name:Dallin Alvarado , 02/14/2024 10:00:00 AM, [address] [place] [address], [phone], Progress Notes * Alessandra EDWARDS EDOB: (88 yo F)Acc No.[id number]:06/24/2023 Progress Note Patient:?Alessandra EDWARDS Provider:?Dallin Alvarado DPM :1935???Age:88 Y???Sex:Female D ate:06/24/2023 [address] [facility] [place] Pcp:Wenceslao Aquino MD Subjective: * Chief Complaints: * ???1. Dr lezama. * Medical History:? Objective: * Vitals:? Assessment: Plan: * Treatment: * Images: * The named appointment provid er may or may not be the originator of this progress note, and it is not deemed complete until electronically signed by the appointment provider. Sign off status: Pending * Provider:Smith Alvarado DPM Date:?2023 Generated for Terell larkin/Sarah Beth/Ravi on:?01/18/2024 02:24 PM EST
--- OUTSIDE RECORDS SUMMARY | 2024-01-18 14:24 | XMS_ITS ---
Author Organization [facility] Address [address] [facility] [place] [address] Care Team Providers Care Development Geologist Name Role Phone Wenceslao Aquino MD Primary Care Provider Dallin Sharpe Unavailable [phone] Allergies Allergen (clinical drug ingredient) Drug/Non Drug Allergy documented on EMR Reaction Allergy Type Onset Date Status ePHEDrine HCl rapid heart rate Drug Allergy Active Adhesive Tape rash Drug Allergy Act gianluca REASON FOR VISIT At Risk Footcare, Painful Nail(s) aggrevated by shoes and causing difficulty standing/walking. Medications Medication SIG (Take, Route, Frequency, Duration) Notes Start Date End Date Status predniSONE 20 MG Oral for 10 N ot-Taking Boostrix 5-2.5-18.5 Intramuscular for 1 Not-Taking Yuvafem 10 MCG Vaginal for 84 Not-Taking Doxycycline Hyclate 100 MG Oral for 10 Not-Taking Ranitidine PRN Not-Takin g Gabapentin 300 MG Orally No t-Taking potassium Active Chlorthalidone 25 MG 1 tablet in the morning with food Orally Once a day for 30 day(s) Water Pill Not-Taking Multivitamin Active MiraLax Active Metoprolol Succinate ER 50 MG Oral for 90 Active Diclofenac Sodium 75 MG Oral for 90 Active dilTIAZem HCl ER Coated Beads 180 MG 1 capsule Orally Once a day Active Atorvastatin Calcium Active Calcium + D Active Align Active Ammonium Lactate 12 % 1 application to affected area Externally to feet Twice a day for 30 days Active Methadone HCl Active Ciclopirox Olamine 0.77 % 1 application Externally Twice a day for 30 days Active Social History Tobacco Use: Social History Observation [...] Signs Height 5 ft 1.5 in in 08/02/2023 Weight 120 lbs 08/02/2023 BMI 22.30 kg/m2 08/02/2023 Blood pressure systolic 120 mm Hg 08/02/19 Blood pressure diastolic 80 mm Hg 024 Procedures Procedure Date Ordered Date Performed Result Body Sit e 87707-HGJPQSQ NAIL, 6 OR MORE 08/02/2023 N/A 76154-DDEK SKIN LESIONS, OVER 4 08/02/2023 N/A Encounters Encounter Location Date Provider Diagnosis [facility] [address] [place] [address] 08/02/2023 Dallin Alvarado Atherosclerosis of [place] artery of both lower extremities, with unspecified presence of clinical manifestation I70.203 ; Onychomycosis B35.1 ; Pain of toe of right foot M79.674 and Pain of toe of left foot M79.675 Assessments Encounter Date Diagnosis (ICD Code) Assessment Notes Treatment Notes Treatment Clinical Notes Section Notes 08/02/2023 Atherosclerosis of [place] artery of both lower extremities, with unspecified presence of clinical manifestation (ICD-10 - I70.203) 08/02/2023 Onychomycosis (ICD-10 - B35.1) 08/02/2023 Pain of toe of right foot (ICD-10 - M79.674) 08/02/2023 Pain of toe of left foot (ICD-10 - M79.675) Plan Of Treatment Pending Test Test Name Order Date 91780-OKHRANH NAIL, 6 OR MORE 08/02/2023 82426-CRDW SKIN LESIONS, OVER 4 08/02/19 24 Next Appt Details Follow Up: prn, Reason: Provider Name:Dallin Alvarado , 02/14/2024 10:00:00 AM, [address] [place] [address], [id number], Procedure Notes * Category Sub-Category Detail Notes Debride Nail 6-10 Nail debridement Nail debridem ent performed extensively to reduce/remove overall nail length, girth, thickness, subungual debris, and necrotic tissue, by manual and electrical means through the use of a nail nipper and/or dremel, to more viable healthy nail plate or bed tissue 1-5. Silver nitrate used for any petechial bleeding as necessary. Patient chooses, no pharmaceutical tx (67770) Keratoma Treatment Parring or Cutting o f Benign Hyperkeratotic Lesion(s) 43162 ( >4 Lesions) - The Benign hyperkeratotic lesions, as described above were pared, and/or cut utilizing a sterile #15 blade, tissue nippers, and/or dremel, Q8 Progress Notes * Alessandra EDWARDS EDOB: [birth year] (88 yo F)Acc No.[id number]:08/02/2023 Progress Note Patient:?Alessandra Edwards Provider:?Dallin Alvarado DPM :1935???Age:88 Y???Sex:Female D ate:08/02/2023 Address:[address] [place] [address], [place], [place] Pcp:Wenceslao Aquino MD Subjective: * Chief Complaints: * ???At Risk FootcarePainful N ail(s) aggrevated by shoes and causing difficulty standing/walking. * HPI: ???At Risk footcare:?Pt States Last PCP Visit:?Date?02/18/2023 * ROS:?General/Constitutional:?Nausea?denies.?Vomiting?denies.?Hunger Thirst?denies.?Loss appetite?denies.?Chills?denies.?Fatigue?admits.?Fever?denies.?Night Sweats?are intermittent, admits.?Unexplained weight loss?denies.?Unexplained weight gain?denies.?HEENTM:?Dentures?admits.?Dizziness?denies.?Glasses/contacts?admits.?Retinopathy?de nies.?Blurred/double vision?denies.?TMJ?denies.?Discharge/drainage?denies.?Implants?denies.?Sore throat?denies.?Dental implants?denies.?Hard of hearing ?denies.?Difficulty chewing/swallowing/speaking?denies.?Nose bleeds?denies.?Sore mouth?denies.?Respiratory:?On Oxygen?denies.?Pneumonia/pleurisy?denies.?Bronchitis?denies.?Emphysema?denies.?C oughing?denies.?Cough blood?denies.?Shortness of breath?denies.?Wheezing?denies.?Cardiovascular:?Pacemaker?denies.?MVP?denies.?WPW?denies.?CHF?denies.?Heart attack?denies.?Septal defect?denies.?Rapid beat?denies.?Chest pain ?denies.?Atrial Fib.?denies.?Murmur/Palpitations?denies.?Gastrointestinal:?Hemorrhoids?denies.?Stomach/Abdominal pain?denies.?Dark blood stool?denies.?Irritable bowel ?denies.?Constipation?admits.?Diarrhea?admits.?Hematology:?Swelling?admits.?Clots?denies.?Varicose Veins?denies.?Bruising?denies.?Bleeding problem?denies.?Genitourinary:?Blood urine?denies.?Frequent/Painfu/urination/bladder control?denies.?Kidney stones?denies.?Infection (UTI)?denies.?Nephropathy?denies.?sex trans dis (STD)?denies.?Prostate?denies.?Musculoskeletal:?Hammertoes?denies.?Bunions?denies.?Back Pain?denies.?Muscle Cramps/ Resting?denies.?Muscle cramps / walking?denies.?Generalized aches and pains?denies.?Weakness?denies.?Integ.:?Kent?denies.?Scars?denies.?Corns/calluses?admits.?Ingrown nails?denies.?Painful nails?admits.?Open Sores?denies.?Rashes?denies.?Neurologic:?Difficulty sleeping?admits.?Brain disorder?denies.?Numbness?denies.?Balance trouble?denies.?Confusion?denies.?Fainting/blackouts?denies.?Tingling?denies.?Tr emors?admits.? * [...] ?Marital status: . ?Occupation: Retired-, RN. * Medications:?TakingMethadone HCl Ciclopirox Olamine 0.77 % Cream 1 application Externally Twice a dayAlign Ammonium Lactate 12 % Cream 1 application to affected area Externally to feet Twice a dayAtorvastatin Calcium Calcium + D Diclofenac Sodium 75 MG Tablet Delayed Release Oral dilTIAZem HCl ER Coated Beads 180 MG Capsule Extended Release 24 Hour 1 capsule Orally Once a dayMetoprolol Succinate ER 50 MG Tablet Extended Release 24 Hour Oral Multivitamin MiraLax potassium Taking Methadone HCl Taking Ciclopirox Olamine 0.77 % Cream 1 application Externally Twice a dayTaking Align Taking Ammonium Lactate 12 % Cream 1 application to affected area Externally to feet Twice a dayTaking Atorvastatin Calcium Taking Calcium + D Taking Diclofenac Sodium 75 MG Tablet Delayed Release Oral Taking dilTIAZem HCl ER Coated Beads 180 MG Capsule Extended Release 24 Hour 1 capsule Orally Once a dayTaking Metoprolol Succinate ER 50 MG Tablet Extended Release 24 Hour Oral Taking Multivitamin Taking MiraLax Taking potassium Not-Taking/PRNChlorthalidone 25 MG Tablet 1 tablet in the morning with food Orally Once a day, Notes: Water PillGabapentin 300 MG Capsule Orally Ranitidine , Notes: PRNYuvafem 10 MCG Tablet Vaginal Doxycycline Hyclate 100 MG Tablet Oral predniSONE 20 MG Tablet Oral Boostrix 5-2.5-18.5 Suspension Intramuscular Medication List reviewed and reconciled with the patientNot- Taking/PRN Chlorthalidone 25 MG Tablet 1 tablet in the morning with food Orally Once a day, Notes: Water PillNot-Taking/PRN Gabapentin 300 MG Capsule Orally Not-Taking/PRN Ranitidine , Notes: PRNNot-Taking/PRN Yuvafem 10 MCG Tablet Vaginal Not- Taking/PRN Doxycycline Hyclate 100 MG Tablet Oral Not-Taking/PRN predniSONE 20 MG Tablet Oral Not-Taking/PRN Boostrix 5-2.5-18.5 Suspension Intramuscular Medication List reviewed and reconciled with the patient * Allergies:?Adhesive Tape: ra shePHEDrine HCl: rapid heart rateyes[Allergies Verified] Objective: * Vitals:?Ht: 5 ft 1.5 in, Wt: 120, BMI:22.30, Shoe size:6.5-7, BP:120/80 mm Hg. * Examination: ???Vascular: ?DP PULSES:? 1/4, LEFT, 0/4, RIGHT.?PT PULSES:? 0/4, B/L.?CAPILLARY FILL TIME:? delayed, all digits, B/L.?SKIN TEMPERTURE GRADIENT OF THE LOWER EXTERMITIES:? decreased, cool to cool, proximal to distal, B/L.?HAIR GROWTH/TEXTURE/ELASTICITY/TURGOR:? decreased, B/L.?PIGMENTATION:? pale, B/L.?EDEMA:?absent, B/L.?CLAUDICATION:?denies, B/L.?REST PAIN:?denies, B/L.?Nails: ?NAILS are:? Elongated, overgrown, dystrophic, lytic, greater than 3mm thick, discolored and friable with crumbly malodorous subungual debris, with pain on palpation, 1-5 B/L.?Dermatologic: ?SKIN FINDINGS:?Skin exam reveals Keratotic lesion(s) located at, Medial, IPJ, TA, Medial, IPJ, T5, SUB MTH (s), 1, B/L , Heel(s), B/L.? Assessment: * Assessment: 1.?Onychomycosis - B35.1?2.? Atherosclerosis of [place] artery of both lower extremities, with unspecified presence of clinical manifestation - I70.203?3.?Pain of toe of right foot - M79.674?4.?Pain of toe of left foot - M79.675? Plan: * Treatment: 2.?Atherosclerosis of [place] artery of both lower extremities, with unspecified presence of clinical manifestation?Procedure: 72765-LRDO SKIN LESIONS, OVER 4 * Procedures:?Debride Nail 6-10:?Nail debridement?Nail debridement performed extensively to reduce/remove overall nail length, girth, thickness, subungual debris, and necrotic tissue, by manual and electrical means through the use of a nail nipper and/or dremel, to more viable healthy nail plate or bed tissue 1-5. Silver nitrate used for any petechial bleeding as necessary. Patient chooses, no pharmaceutical tx (13847).?Keratoma Treatment:?Parring or Cutting of Benign Hyperkeratotic Lesion(s)?71542 ( >4 Lesions) - The Benign hyperkeratotic lesions, as described above were pared, and/or cut utilizing a sterile #15 blade, tissue nippers, and/or dremel, Q8.? * Procedure Codes:?79090 DEBRI DE NAIL, 6 OR MORE, Modifiers: XS 53125 TRIM SKIN LESIONS, OVER 4, Modifiers: XS , Q8 * Follow Up:?prn * Images: * Sign off status: Completed Addendum: * ? true * Provider:?Dallin Alvarado DPM Date:?2023 Generated for Terell larkin/Sarah Beth/Sylviaitting on:?01/18/2024 02:24 PM EST History and Physical Notes * HPI (History of Present Illness) Category Sub-Category Detail Notes Category Not es At Risk footcare Pt States Last PCP Visit: Date: 4 Examination Category Sub-Category Detail Notes Category Not es Dermatologic SKIN FINDINGS: Skin exam reveal s Keratotic lesion(s) located at, Medial, IPJ, TA, Medial, IPJ, T5, SUB MTH (s), 1, B/L , Heel(s), B/L Vascular DP PULSES(B): 1/4, LEFT, 0/4, RIGHT PT PULSES(B): 0/4, B/L CAPILLARY FILL TIME: delayed, all digits , B/L TEMPERTURE GRADIENT(C): decreased, cool to cool, proximal to distal, B/L TROPHIC CONDITION-TEXTURE/ELASTICITY/TURGOR/HAIR GROWTH(B): decreased, B/L EDEMA(C): absent, B/L CLAUDICATION(C): denies, B/L REST PAIN: denies, B/L PIGMENTATION: pale, B/L Nails NAILS are: Elongated, overg rown, dystrophic, lytic, greater than 3mm thick, discolored and friable with crumbly malodorous subungual debris, with pain on palpation, 1-5 B/L
--- OUTSIDE RECORDS SUMMARY | 2024-01-18 14:24 | XMS_ITS | Patient Health Record ---
Author Organization [facility] Address [address] [place] [address] Care Team Providers Care Senior Electrical Design Engineer Name Role Phone Wenceslao Aquino MD Primary Care Provider Dallin Sharpe Unavailable [phone] Allergies Allergen (clinical drug ingredient) Drug/Non Drug Allergy documented on EMR Reaction Allergy Type Onset Date Status ePHEDrine HCl rapid heart rate Drug Allergy Active Adhesive Tape rash Drug Allergy Act gianluca Reason For Referral No Information Medications Medication SIG (Take, Route, Frequency, Duration) Notes Start Date End Date Status Diclofenac Sodium 75 MG Oral for 90 Not-Taking Doxycycline Hyclate 100 MG Oral for 10 Not-Taking Calcium + D Active Yuvafem 10 MCG Vaginal for 84 Not-Taking Atorvastatin Calcium Active Ranitidine PRN Not-Takin g Align Active Gabapentin 300 MG Orally No t-Taking Ciclopirox Olamine 0.77 % 1 application Externally Twice a day for 30 days Active Chlorthalidone 25 MG 1 tablet in the morning with food Orally Once a day for 30 day(s) Water Pill Not-Taking Methadone HCl Not-Ta sarwat potassium Not-Taking MiraLax Active Multivitamin Active Metoprolol Succinate ER 50 MG Oral for 90 Active Boostrix 5-2.5-18.5 Intramuscular for 1 Not-Taking Ammonium Lactate 12 % APPLY CREAM TOPICA LLY TO AFFECTED AREA TWICE DAILY TO FEET for 30 Active dilTIAZem HCl ER Coated Beads 180 MG 1 capsule Orally Once a day Active predniSONE 20 MG Oral for 10 N ot-Taking Immunizations Vaccine Route Administration Date Status Comme nts COVID-19 Pfizer BioNTech Vaccine Unknown 10/15/2021 Administered 1st 03/15/2020 4th 2021 2nd 04/05/2020 3rd 10/15/2020 Influenza Unknown 10/08/2021 Administered Social History Tobacco Use: Social History Observation [...] Are you an other tobacco user? No Problems Problem Type SNOMED Code ICD Code Onset Dates Problem Status W/U Status Risk Notes Problem Atherosclerosis of [place] arteries of the extremities ([id number]) Atherosclerosis of [place] artery of both lower extremities, with unspecified presence of clinical manifestation (I70.203) Active confirmed Vital Signs Blood pressure diastolic 80 mm Hg 08/02/2023 Height 5 ft 1.5 in in 11/04/2023 Blood pressure systolic 120 mm Hg 08/02/2023 Weight 120 lbs 08/02/2023 BMI 22.30 kg/m2 08/02/2023 Procedures Procedure Date Ordered Date Performed Result Body Sit e 88190-ZZAFYVX NAIL, 6 OR MORE 02/25/2023 N/A 95075-JYNX SKIN LESIONS, OVER 4 02/25/2023 N/A 76057-AJVLDDG NAIL, 6 OR MORE 08/02/2023 N/A 85498-KFAZ SKIN LESIONS, OVER 4 08/02/2023 N/A 51602-IHIKYUU NAIL, 6 OR MORE 11/04/2023 N/A 66149-WIBO SKIN LESIONS, OVER 4 11/04/2023 N/A Encounters Encounter [facility] Date [facility] [address] [address] 02/25/2023 Dallin Alvarado Atherosclerosis of [place] artery of both lower extremities, with unspecified presence of clinical manifestation I70.203 ; Onychomycosis B35.1 ; Pain of toe of right foot M79.674 ; Pain of toe of left foot M79.675 and Subungual hematoma of left foot, initial encounter S90.222A [facility] [address] [place] [address] 08/02/2023 Dallin Alvarado Atherosclerosis of [place] artery of both lower extremities, with unspecified presence of clinical manifestation I70.203 ; Onychomycosis B35.1 ; Pain of toe of right foot M79.674 and Pain of toe of left foot M79.[address] [address] 11/04/2023 Dallin Alvarado Atherosclerosis of [place] artery of both lower extremities, with unspecified presence of clinical manifestation I70.203 ; Onychomycosis B35.1 ; Pain of toe of right foot M79.674 ; Pain of toe of left foot M79.675 and Xerosis of skin L85.[address] [address] 05/20/2023 Dallin Alvarado Assessments Encounter Date Diagnosis (ICD Code) Assessment Notes Treatment Notes Treatment Clinical Notes Section Notes 02/25/2023 Onychomycosis (ICD-10 - B35.1) 02/25/2023 Atherosclerosis of [place] artery of both lower extremities, with unspecified presence of clinical manifestation (ICD-10 - I70.203) 08/02/2023 Onychomycosis (ICD-10 - B35.1) 08/02/2023 Atherosclerosis of [place] artery of both lower extremities, with unspecified presence of clinical manifestation (ICD-10 - I70.203) 11/04/2023 Onychomycosis (ICD-10 - B35.1) 11/04/2023 Atherosclerosis of [place] artery of both lower extremities, with unspecified presence of clinical manifestation (ICD-10 - I70.203) 08/02/2023 Pain of toe of right foot (ICD-10 - M79.674) 11/04/2023 Pain of toe of right foot (ICD-10 - M79.674) 02/25/2023 Pain of toe of right foot (ICD-10 - M79.674) 02/25/2023 Pain of toe of left foot (ICD-10 - M79.675) 08/02/2023 Pain of toe of left foot (ICD-10 - M79.675) 11/04/2023 Pain of toe of left foot (ICD-10 - M79.675) 11/04/2023 Xerosis of skin (ICD-10 - L85.3) 02/25/2023 Subungual hematoma of left foot, initial encounter (ICD-10 - S90.222A) Plan Of Treatment Pending Test Test Name Order Date 19969-SYYYAHF NAIL, 6 OR MORE 11/18/2017 15724-BOJNXIW NAIL, 6 OR MORE 03/14/2018 32041-OEAGDGX NAIL, 6 OR MORE 06/13/2018 05471-VOBFFXI NAIL, 6 OR MORE 09/12/2018 79132-RSUIZNE NAIL, 6 OR MORE 12/12/2018 98929-ORYPWMV NAIL, 6 OR MORE 03/20/2019 71818-EOQNYNW NAIL, 6 OR MORE 06/19/2019 41779-IPMTZAK NAIL, 6 OR MORE 09/21/2019 68768-QJFFOIZ NAIL, 6 OR MORE 12/21/2019 18216-IAYPKKO NAIL, 6 OR MORE 03/25/2020 39902-HVIFCIA NAIL, 6 OR MORE 06/24/2020 85113-FFIYFUK NAIL, 6 OR MORE 09/23/2020 67156-VLCKLJB NAIL, 6 OR MORE 12/23/2020 90651-KSZDVBU NAIL, 6 OR MORE 03/24/2021 62328-YRXOCNQ NAIL, 6 OR MORE 06/23/2021 66526-CQGBSEC NAIL, 6 OR MORE 09/15/2021 55045-AHMANDO NAIL, 6 OR MORE 01/12/2022 68956-CTGUYBE NAIL, 6 OR MORE 05/11/2022 72102-ZDFSAXU NAIL, 6 OR MORE 08/13/2022 34832-NXLAYHS NAIL, 6 OR MORE 11/23/2022 66732-PODBKCB NAIL, 6 OR MORE 02/25/2023 13278-IHAHJNO NAIL, 6 OR MORE 08/02/2023 36789-USRDUXN NAIL, 6 OR MORE 11/04/2023 09823-RJDC SKIN LESIONS, OVER 4 11/04/19 24 41492-BWME SKIN LESIONS, OVER 4 08/02/19 24 45277-FLCP SKIN LESIONS, OVER 4 02/25/19 24 63320-PKON SKIN LESIONS, OVER 4 11/24/19 23 28809-AHYN SKIN LESIONS, OVER 4 08/14/19 23 89790-SVUW SKIN LESIONS, OVER 4 05/12/19 23 47691-UVKC SKIN LESIONS, OVER 4 01/13/20 22 87352-TOKS SKIN LESIONS, OVER 4 09/16/19 22 39981-JBMW SKIN LESIONS, OVER 4 06/24/19 22 41312-NLUY SKIN LESIONS, OVER 4 03/24/19 22 04179- Biopsy of skin lesion 10/14/2017 Next Appt Details Provider Name:Dallin Alvarado , 02/14/2024 10:00:00 AM, [address] [place], [address], Insurance Providers Payer Name Payer Address Payer Phone Subscriber Number Group Number Insured Name Patient Relationship to Insured Coverage Start Date Coverage End Date Medicare National Govt [facility] [address] [place] [address] [id number] Alessandra Edwards Self - patient is the insured 4 [employer] [address] [place] [address] [id number] Alessandra Edwards Self - patient is the insured Medical (General) History Medical History History ICD Code Arthritis Cholesterol Diverticulosis High blood pressure Sinus conditions Measles Mumps Chicken pox Joint implants/screws Transfusions Surgical History Surgery Date(Month/Year) spinal fusion L4 & L5 2007 left hip replacement 2012 right hip replacement 2014 cataract surgery 2015 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
== END 2024-01-16 10:57 | disposition home or self-care (01) ==
PROVIDERS: PCP Internal Medicine; Visit Provider Registered Nurse
DX: K21.9 Gastro-esophageal reflux disease without esophagitis (principal)

== ENCOUNTER → 2024-01-16 10:13 | Outpatient (BNVA) | payer MEDICARE, SELFPAY | PROVIDERS: PCP Internal Medicine; Visit Provider Registered Nurse | DX: K21.9 Gastro-esophageal reflux disease without esophagitis (principal) | CPT/HCPCS: 99212 ==

== ENCOUNTER 2024-04-16 17:16 | Emergency (ER) | payer MEDICARE, SELFPAY ==
--- NOTE | ~2024-04-16 | CT_ITS ---
CLINICAL HISTORY: episodes of difficulty reading consfusion CT head without contrast COMPARISON: None FINDINGS: Global cerebral volume loss and chronic microvascular ischemic changes. No acute intracranial hemorrhage, extra-axial fluid collection, mass effect, or midline shift. Ventricular system and basilar cisterns are patent. Abad-white matter differentiation is maintained. No gross orbital abnormality. No suspicious or acute bone lesion. Mastoid air cells and paranasal sinuses are predominantly clear. IMPRESSION: 1. No acute intracranial abnormality. 2. Global cerebral volume loss and chronic microvascular ischemic changes. This document has been electronically signed by: Johan Combs MD on 04/16/2024 19:20:01
[2024-04-16 17:35] VITALS: BP 164/80; BP 175/106; PULSE 75; PULSE 79; RESP 18; TEMP 36.5; O2SAT 95; O2SAT 98; BMI 25.5
--- NOTE | 2024-04-16 17:41 | ED.GENADULT ---
HPI - General Adult General Chief complaint: General Medical Stated complaint: dizzyness hypotension, afib Time Seen by Provider: 04/16/24 17:41 History of Present Illness ED Provider: Malika SEQUEIRA narrative: The patient is an 88-year-old woman who is generally in quite good health. She lives at home with her . She says that at around 3:30 PM this afternoon she was at her computer and she felt as though she did not feel quite right and as though she may not be understanding what she was doing. She decided to go to the kitchen and cook something instead. She then said that she tried reading a cook book. She says she was able to read the words of the cook book but could not really understand them. She was concerned about this and went to find her and asked her to bring her to the hospital. He drove her to a fire station where she was found to have a high blood pressure but no obvious focal neurological deficits. She was then brought by paramedics to the hospital. The patient's says that when she came in spoke to him about her symptoms that her speech seemed normal and that she did not seem to exhibit any signs of facial droop or unilateral weakness or any other neurological deficits or changes in her condition that he could appreciate. The patient says that she currently does not feel that she is having the same problems that she had at home. 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 She sees a geological engineering teacher at [facility]. The patient says she has also had some abnormal looking urine recently. She thinks she may have had some blood in her urine. She does not have any definite burning or urgency or frequency. Related Data Home Medications ?Medication ?Instructions ?Recorded ?Confirmed diltiazem HCl 120 mg 120 mg PO ONCE 08/17/23 10/07/23 capsule,extended release 12 hr estradiol 0.01% (0.1 mg/gram) 1 g vaginal 3XW 08/17/23 10/07/23 vaginal cream hydroxyzine HCl 25 mg tablet 25 mg PO BID PRN 08/17/23 10/07/23 metoprolol succinate 25 mg 25 mg PO DAILY 08/17/23 10/07/23 tablet,extended release 24 hr psyllium husk 0.4 gram capsule 0.4 g PO DAILY 08/17/23 10/07/23 (Daily Fiber) vitamins A,C,X-uqam-lxyuwu 4,296 1 cap PO BID 08/17/23 10/07/23 mcg-226 mg-90 mg capsule (PreserVision AREDS) aspirin 81 mg tablet,delayed 81 mg PO DAILY 01/16/24 release Previous Rx's ?Medication ?Instructions ?Recorded cephalexin 500 mg capsule 500 mg PO BID 5 days #10 caps 04/16/24 Allergies Allergy/AdvReac Type Severity Reaction Status Date / Time perfume Allergy Unknown UNKNOWN Verified 04/16/24 17:38 [email or web address] [From Myrbetriq] AdvReac Intermediate Nausea Verified 01/16/24 10:37 Review of Systems Review of Systems: Yes all other systems are reviewed and are negative [facility] Past Medical History Medical History (Updated 04/16/24 @ 20:22 by Peter Daly MD) High cholesterol Hypertension Restless legs Arthritis Surgical History (Updated 08/17/23 @ 14:19 by Lashonda Boyd APRN, TRACK COACH) History of lumbar fusion Social History Social History Patient Tobacco Use Status: Never used Tobacco Smoked in Last 30 Days: No Advance Directives: No Advance Directives Information Provided: No Physical Exam ED Vital Signs: Vital Signs - 24 hr 04/16/24 17:35 04/16/24 20:40 04/16/24 20:43 Temperature 97.7 F 97.9 F 97.9 F Pulse Rate 79 72 72 Respiratory Rate 18 12 12 Blood Pressure 164/80 H 166/69 H 166/69 H Pulse Oximetry 95 96 96 Oxygen Delivery Method Room Air Room Air Room Air BMI result Body Mass Index 25.5 Const Other: The patient is an 88-year-old woman who was awake and alert. She is pleasant and cooperative. She does not appear acutely ill in any way. No apparent neurological deficit. HENMT Other: Face is symmetrical. Tongue is midline. Eyes Other: Pupils are round equal, lateral gaze is intact bilaterally. Visual feliz are intact to confrontation. Neck Neck: Yes full ROM and Yes no JVD Resp Effort & Inspection: normal respiratory effort Auscultation: clear to auscultation bilaterally Cardio Rate: regular rate Rhythm: regular rhythm Heart sounds: S1 normal heart sound present and S2 normal heart sound present GI Other: Abdomen is soft and nontender Skin Other: Skin is dry and unremarkable Neuro Other: The patient is awake and alert with a normal mental status. Eye movements are intact. Pupils are normal. Visual feliz are intact to confrontation. Face is symmetrical. Speech is clear and appropriate. She does not seem to have any expressive or receptive aphasia of any kind. She is able to read normally. She has a 5/5 strength in all 4 extremities. There is no pronator drift. Finger-nose is normal. Gait is steady. She seems neurologically intact with a an NIH stroke scale of 0. Extrem Other: No peripheral edema Medications Administered Discontinued Medications Generic Name Dose Route Start Last Admin Trade Name Freq PRN Reason Stop Dose Admin Cephalexin HCl 500 mg 04/16/24 20:13 04/16/24 20:41 Cephalexin 500 Mg Capsule PO 04/16/24 20:14 500 mg ONCE ONE Administration Medical Decision Making Medical Decision Making [facility] Narrative: The patient is an 88-year-old woman who had an episode of feeling somewhat dizzy and having a sense of not being able to comprehend what she was reading (she was not having a visual complaint). She is vague as to the duration of the symptoms. She seemed neurologically intact when she arrived here. Additionally neither her with whom she first spoke nor paramedics whom she later saw appreciated any objective neurological deficit or change from her baseline. She has an unremarkable EKG, a noncontrast CT scan of the brain that shows chronic changes but no acute findings. Labs are unremarkable. The patient has an abnormal urinalysis and she reports having abnormal looking urine at home but she does not really have symptoms of UTI. The etiology of the episode the patient describes at home earlier today is not clear. It is possible this might have been an unusual TIA but it is not clear this was a TIA. I spoke to the patient about possibly being hospitalized for an additional workup for a possible TIA. She would prefer to pursue this is an outpatient which I do not think is unreasonable given that it is not clear that this was a TIA. Based on her urinalysis I do not think it would be unreasonable to place her on a course of cephalexin. The patient will therefore be discharged with instructions to continue her current medications, to contact her primary care doctor in the morning for prompt follow up appointment to discuss this further and possibly get an outpatient TIA workup, and take a course of cephalexin. She should return if worse. Lab Data 04/16/24 19:11 04/16/24 19:11 Labs: Lab Results 04/16/24 Range/Units 19:11 WBC 4.7 L (4.8-10.8) X10*3/uL RBC 3.40 L (4.20-5.50) X10*6/uL Hgb 12.0 (12.0-16.0) g/dl Hct 36.2 L (37.0-47.0) % MCV 106.5 H (80.0-98.0) fL MCH 35.3 H (27.0-33.0) pg MCHC 33.1 (31.0-35.0) g/dl RDW 15.1 (11.0-16.0) % Plt Count 285 (160-400) X10*3/uL MPV 9.5 (9.4-12.3) fL Immature Gran % (Auto) 0.2 (0.0-0.4) % Neut % (Auto) 59.1 (45-73) % Lymph % (Auto) 29.1 (20-40) % [place] % (Auto) 8.9 (2-11) % Eos % (Auto) 2.1 (0-4) % Baso % (Auto) 0.6 (0-2) % Lymph # (Auto) 1.4 (1.2-4.9) X10*3/uL [place] # (Auto) 0.4 (0.1-1.2) X10*3/uL Eos # (Auto) 0.1 (0.0-0.4) X10*3/uL Baso # (Auto) 0.0 (0.0-0.2) X10*3/uL Abs Immat Gran (auto) 0.01 (0.00-0.03) X10*3/uL Absolute Neuts (auto) 2.8 (2.0-8.3) x10*3/uL Absolute Nucleated RBC 0.000 (0.0-0.012) X10*3/uL Nucleated RBC % (auto) 0.0 (0.0-0.2) /100WBC Sodium 143 (135-145) mmol/L Potassium 4.4 (3.3-5.1) mmol/L Chloride 109 H (96-108) mmol/L Carbon Dioxide 25 (22-29) mmol/L Anion Gap 13 (12-20) BUN 18 H (9-16) mg/dL Creatinine 1.00 (0.5-1.4) mg/dL Estim Creat Clear Calc 31.3 Estimated GFR 52 Random Glucose 108 (60-115) mg/dL Calcium 9.6 (8.4-10.2) mg/dL Magnesium 2.3 (1.6-2.6) mg/dL Total Bilirubin 0.4 (0.0-1.0) mg/dL Direct Bilirubin 0.1 (0.0-0.5) mg/dL AST 26 (5-31) U/L ALT 17 (0-31) U/L Alkaline Phosphatase 67 (39-117) U/L Troponin I High Sens 2.9 (<3.5-17.0) ng/L C-Reactive Protein 0.14 (< or = 0.50) mg/dL B-Natriuretic Peptide 91 (<100) pg/mL Total Protein 7.3 (6.5-8.0) g/dL Albumin 4.1 (3.5-5.0) g/dL Urine Color Other A Urine Appearance Clear Urine pH 7.0 (5.0-9.0) Ur Specific Adger 1.010 (1.005-1.025) Urine Protein Trace (Neg-Trace) mg/dL Urine Glucose (UA) Negative (Negative) mg/dL Urine Ketones Negative (Negative) mg/dL Urine Blood Large (3+) H (Negative) Urine Nitrite Negative (Negative) Ur Leukocyte Esterase Small (1+) H (Negative) Urine RBC >20 H (0-2) /HPF Urine WBC 0-5 (0-5) /HPF Ur Squamous Epith Cells 0-2 (0-2) /HPF Urine Bacteria None Seen (None Seen) Hyaline Casts 0-2 (0-2) /LPF Ethyl Alcohol < 10 mg/dL Influenza Type A (PCR) NEGATIVE (Negative) Influenza Type B (PCR) NEGATIVE (Negative) RSV RNA Qual (PCR) NEGATIVE (Negative) SARS-CoV-2 RNA (RT-PCR) NEGATIVE (Negative) Independent Interpretation I performed an independent interpretation of an: EKG Interpretation: EKG at 1856 shows sinus rhythm with a premature atrial complexes. No acute findings. No previous EKGs for comparison. Discharge Plan Discharge Clinical Impression: Episode of confusion, Abnormal urinalysis Patient Disposition: Home, Self-Care Additional Instructions: It is possible you might have a urinary tract infection. You has been started on a course of cephalexin, an antibiotic. Please take your next dose tomorrow morning. Please also contact your regular doctor's office tomorrow morning to make a prompt follow up appointment for today's episode. Explained that it is possible you might have had a TIA and that you should have additional testing as an outpatient. Please continue all of your regular medications. Drink a lot of fluids to make sure you are well hydrated. If at any point you are significantly worse please call an ambulance and returned to the hospital. Prescriptions: New cephalexin 500 mg capsule 500 mg PO BID 5 Days Qty: 10 0RF No Action aspirin 81 mg tablet,delayed release (DR/EC) 81 mg PO DAILY diltiazem HCl 120 mg capsule,extended release 12 hr 120 mg PO ONCE metoprolol succinate 25 mg tablet extended release 24 hr 25 mg PO DAILY estradiol 0.01 % (0.1 mg/gram) cream 1 g vaginal 3XW psyllium husk [Daily Fiber] 0.4 gram capsule 0.4 g PO DAILY PreserVision AREDS 4,296 mcg-226 mg-90 mg capsule 1 cap PO BID hydroxyzine HCl 25 mg tablet 25 mg PO BID PRN Referrals: Wenceslao Aquino MD [Physician] - (Episode of confusion, possible TIA) Interventions: ED Discharge Assessment Last Done: 04/16/24 20:43 Discharge Date/Time: 04/16/24 20:44 Print Language: Welsh
--- NOTE | 2024-04-16 18:04 | ECG_ITS ---
Test Reason : DIZZINESS Blood Pressure : */* mmHG Vent. Rate : 76 BPM Atrial Rate : 76 BPM P-R Int : 156 ms QRS Dur : 72 ms QT Int : 378 ms P-R-T Axes : 25 -4 14 degrees QTcB Int : 425 ms Sinus rhythm with Premature atrial complexes Otherwise normal ECG No previous ECGs available Referred By: Peter Daly Electronically Signed By: WARREN HALL
[2024-04-16 19:18] LABS: MANUAL DIFF FLAG NO
[2024-04-16 19:21] LABS: Basophils Percent Auto 0.6 % (0-2); Eosinophils Absolute Auto 0.1 X10*3/uL (0.0-0.4); Eosinophils Percent Auto 2.1 % (0-4); Hematocrit 36.2 % (37.0-47.0); Imm Gran Abs Auto 0.01 X10*3/uL (0.00-0.03); Imm Gran Pct Auto 0.2 % (0.0-0.4); Lymphocytes Absolute Auto 1.4 X10*3/uL (1.2-4.9); Lymphocytes Percent Auto 29.1 % (20-40); Mean Corpuscular HGB Conc 33.1 g/dl (31.0-35.0); Mean Corpuscular Hemoglobin 35.3 pg (27.0-33.0); Mean Corpuscular Volume 106.5 fL (80.0-98.0); Mean Platelet Volume 9.5 fL (9.4-12.3); Monocytes Absolute Auto 0.4 X10*3/uL (0.1-1.2); Monocytes Percent Auto 8.9 % (2-11); Neutrophils Absolute Auto 2.8 x10*3/uL (2.0-8.3); Neutrophils Percent Auto 59.1 % (45-73); Platelet Count 285 X10*3/uL (160-400); Red Cell Distribution Width 15.1 % (11.0-16.0); White Blood Count 4.7 X10*3/uL (4.8-10.8)
[2024-04-16 19:25] LABS: Appearance Urine Clear; Color Urine Other; Glucose Urine UA Negative (Negative); Leukocyte Esterase Urine Small (1+) (Negative); Nitrite Urine Negative (Negative); UMIC TRIGGER UACC YES; Urine Blood Large (3+) (Negative); Urine Ketones Negative (Negative); Urine Protein Trace mg/dL (Neg-Trace)
--- OUTSIDE RECORDS SUMMARY | 2024-04-16 19:34 | XMS_ITS ---
Author Organization [facility] Address [address] [facility] [place] [address] Care Team Providers Care Emery Wheel Worker Name Role Phone Wenceslao Aquino MD Primary Care Provider Dallin Sharpe Unavailable [phone] Allergies Allergen (clinical drug ingredient) Drug/Non Drug [...] Ordered Date Performed Result Body Sit e 39189-AEBKALX NAIL, 6 OR MORE 11/04/2023 N/A [id number] SKIN LESIONS, OVER 4 11/04/2023 N/A Encounters Encounter Location Date Provider Diagnosis [facility] [place] [address] [place] [address] 11/04/2023 Dallin Alvarado Atherosclerosis of [place] artery of both lower extremities, with unspecified presence of clinical manifestation I70.203 ; Onychomycosis B35.1 ; Pain of toe of right foot M79.674 ; Pain of toe of left foot M79.675 and Xerosis of skin L85.3 Assessments Encounter Date Diagnosis (ICD Code) Assessment Notes Treatment Notes Treatment Clinical Notes Section Notes 11/04/2023 Atherosclerosis of [place] artery of both lower extremities, with unspecified [...] days Pending Test Test Name Order Date [id number] NAIL, 6 OR MORE 11/04/2023 87775-TEQX SKIN LESIONS, OVER 4 11/04/19 24 Next Appt Details Follow Up: prn, Reason: Provider Name:Dallin José Miguel Alvarado , 05/15/2024 10:00:00 AM, [address], [place], [address], Procedure Notes * Category Sub-Category Detail Notes Debride Nail 6-10 Nail debridement Performance o f this nail treatment by a nonprofessional would put this patients foot and overall health at risk. Therefore, nail debridement was performed extensively to reduce/remove overall nail length, girth, thickness, subungual debris, and necrotic tissue, by manual and/or electrical means through the use of a nail nipper and/or dremel-type shear grinder operator helper, to a more viable healthy nail plate or bed tissue 6-10. Silver nitrate used for any petechial bleeding as necessary. Definitive antifungal treatment options have been reviewed and discussed with the patient. The patient chooses, no pharmaceutical tx - 37079 Keratoma Treatment Parring or Cutting o f Benign Hyperkeratotic Lesion(s) (-57) More than 4 Lesions - The Benign hyperkeratotic lesions, as described above were pared, and/or cut utilizing a sterile 15 blade, tissue nippers, and/or dremel - 81317 , Q8 Progress Notes * Rafia EDWARDS EDOB: [birth year] (88 yo F)Acc No.[id number]:11/04/2023 Progress Note Patient:?Rafia EDWARDS Provider:?Dallin Alvarado DPM :1935???Age:88 Y???Sex:Female D ate:11/04/2023 Address:[address] [place] [address], [place], [place] Pcp:Wenceslao Aquino MD Subjective: * Chief Complaints: [...] % Cream 1 application Externally Twice a day Align Atorvastatin Calcium Calcium + D dilTIAZem HCl ER Coated Beads 180 MG Capsule Extended Release 24 Hour 1 capsule Orally Once a day Metoprolol Succinate ER 50 MG Tablet Extended Release 24 Hour Oral Multivitamin MiraLax Ammonium Lactate 12 % Cream APPLY CREAM TOPICALLY TO AFFECTED AREA TWICE DAILY TO FEET Taking Ciclopirox Olamine 0.77 % Cream 1 application Externally Twice a day Taking Align Taking Atorvastatin Calcium Taking Calcium + D Taking dilTIAZem HCl ER Coated Beads 180 MG Capsule Extended Release 24 Hour 1 capsule Orally Once a day Taking Metoprolol Succinate ER 50 MG Tablet Extended Release 24 Hour Oral Taking Multivitamin Taking MiraLax Taking Ammonium Lactate 12 % Cream APPLY CREAM TOPICALLY TO AFFECTED AREA TWICE DAILY TO FEET Not-Taking/PRNMethadone HCl Diclofenac Sodium 75 MG Tablet Delayed Release Oral potassium Chlorthalidone 25 MG Tablet 1 tablet in the morning with food Orally Once a day , Notes to Pharmacist: Water PillGabapentin 300 MG Capsule Orally Ranitidine , Notes to Pharmacist: PRNYuvafem 10 MCG Tablet Vaginal Doxycycline Hyclate 100 MG Tablet Oral predniSONE 20 MG Tablet Oral Boostrix 5-2.5-18.5 Suspension Intramuscular Medication List reviewed and reconciled with the patientNot-Taking/PRN Methadone HCl Not-Taking/PRN Diclofenac Sodium 75 MG Tablet Delayed Release Oral Not-Taking/PRN potassium Not-Taking/PRN Chlorthalidone 25 MG Tablet 1 tablet in the morning with food Orally Once a day , Notes to Pharmacist: Water PillNot-Taking/PRN Gabapentin 300 MG Capsule Orally Not-Taking/PRN Ranitidine , Notes to Pharmacist: PRNNot-Taking/PRN Yuvafem 10 MCG Tablet Vaginal Not- Taking/PRN Doxycycline Hyclate 100 MG Tablet Oral Not-Taking/PRN predniSONE 20 MG Tablet Oral Not-Taking/PRN Boostrix 5-2.5-18.5 Suspension Intramuscular Medication List reviewed and reconciled with the patient * Allergies:?Adhesive Tape: ra shePHEDrine HCl: rapid heart rateyes[Allergies Verified] Objective: * Vitals:?Ht: 5 ft 1.5 in. * Examination: ???Vascular: ?DP PULSES (B):?0/4, RIGHT, 1/4, LEFT.?PT PULSES (B):? 0/4, B/L.?CAPILLARY FILL TIME:? delayed, all digits, B/L.?TROPHIC CONDITION-TEXTURE/ELASTICITY/TURGOR/HAIR GROWTH (B):? decreased, with sparse to absent hair growth, B/L.?TEMPERTURE GRADIENT (C):? decreased, cool to cool, proximal to distal, B/L.?PIGMENTATION:? pale, B/L.?EDEMA (C):?absent, B/L.?CLAUDICATION (C):?denies, B/L.?REST PAIN:?denies, B/L.?Nails: ?NAILS are:? Elongated, overgrown, [...] present, B/L.? Assessment: * Assessment: 1.?Onychomycosis - B35.1???2 .?Atherosclerosis of [place] artery of both lower extremities, with unspecified presence of clinical manifestation - I70.203???3.?Pain of toe of right foot - M79.674???4.?Pain of toe of left foot - M79.675 ??5.?Xerosis of skin - L85.3???Specify :Acute problem, Uncomplicated (3),Rx Management (4)??? Plan: * Treatment: 2.?Atherosclerosis of [place] artery of both lower extremities, with unspecified presence of clinical manifestation?Procedure: 60416-NEFO SKIN LESIONS, OVER 4 3.?Xerosis of skin? [...] use of a nail nipper and/or dremel-type shear grinder operator helper, to a more viable healthy nail plate or bed tissue 6-10. Silver nitrate used for any petechial bleeding as necessary. Definitive antifungal treatment options have been reviewed and discussed with the patient. The patient chooses, no pharmaceutical tx - 94775.?Keratoma Treatment:?Parring or Cutting of Benign Hyperkeratotic Lesion(s)?(-57) More than 4 Lesions - The Benign hyperkeratotic lesions, as described above were pared, and/or cut utilizing a sterile 15 blade, tissue nippers, and/or dremel - 86864 , Q8.? * Procedure Codes:?41726 DEBRI DE NAIL, 6 OR MORE, Modifiers: XS 38635 TRIM SKIN LESIONS, OVER 4, Modifiers: XS [...] their pharmacy at the time of visit.? ??Screening/Special Tests:?Fall Risk?Screening:?No falls in the past year ?FALLS: Screening for Future Fall Risk?Have you had any falls with injury in the past year??No * Follow Up:?prn * Images: * Sign off status: Completed true * Provider:?Dallin Alvarado DPM Date:?2023 Generated for Terell larkin/Sarah Beth/Ravi on:?04/16/2024 07:34 PM EDT History and Physical Notes * HPI (History [...] fashion, no fissure(s) present, B/L Vascular DP PULSES (B): 0/4, RIGHT, 1/4, LEFT PT PULSES (B): 0/4, B/L CAPILLARY FILL TIME: delayed, all digits , B/L TEMPERTURE GRADIENT (C): decreased, cool to cool, proximal to distal, B/L TROPHIC CONDITION-TEXTURE/ELASTICITY/TURGOR/HAIR GROWTH (B): decreased, with sparse to absent hair gr owth, B/L EDEMA (C): absent, B/L CLAUDICATION (C): denies, B/L REST PAIN: denies, B/L PIGMENTATION: pale, B/L Nails NAILS are: Elongated, overg rown, dystrophic, lytic, greater than 3mm thick, discolored and friable with crumbly malodorous subungual debris, with pain on palpation, 1-5 B/L
--- OUTSIDE RECORDS SUMMARY | 2024-04-16 19:34 | XMS_ITS | Clinical Summary ---
Author Organization [facility] Address [address] [place] [address] Care Team Providers Care Proof Machine Operator Name Role Phone Wenceslao Aquino MD Primary Care Provider [phone] Allergies Active Allergy Reactions Criticality Noted Date Comments Yasmany Inhibitors 08/28/2018 Ephedrine 08/29/2018 Mirabegron 08/29/2018 Medications Medication Sig Dispensed Refills Start Date End Date Status chlorthalidone (HYGROTON) 25 MG tablet Take 25 mg by mouth daily. 0 Active diclofenac (VOLTAREN) 50 MG EC tablet Take 75 mg by mouth daily. 0 Active dilTIAZem (CARDIZEM CD) 180 MG 24 hr capsule Take 180 mg by mouth daily. 0 Active LORazepam (ATIVAN) 1 MG tablet Take 1 mg by mouth every night at bedtime as needed. 0 Active metoprolol succinate (TOPROL-XL) 24 hr tablet 50 mg Take 50 mg by mouth daily. 0 Active pantoprazole (PROTONIX) 40 MG tablet Take 40 mg by mouth 2 (two) times a day. 0 Active b rvublef-C-bictf acid 1 MG capsule Take 1 capsule by mouth daily. 0 Active Multiple Vitamins-Minerals (MULTIVITAMIN ADULTS 50+) TABS Take by mouth daily. 0 Active Cholecalciferol (VITAMIN D PO) Take by mouth daily. 0 Active MAGNESIUM PO Take by mouth daily. 0 Active acetaminophen (TYLENOL 8 HOUR) 650 MG CR tablet Take 650 mg by mouth as needed for pain. 0 Active polyethylene glycol (MIRALAX) packet Take 17 g by mouth daily. 0 Active potassium chloride (KLOR-CON) 20 MEQ packet Take 20 mEq by mouth daily. 0 Active Active Problems Problem Noted Date Diagnosed Date Lymphadenopathy, retroperitoneal 02/27/2019 Social History Tobacco Use Types Packs/Day Years Used Date Smoking Tobacco: Never Smokeless Tobacco: Never Alcohol Use Standard Drinks/Week Comments Yes 0 (1 standard drink = 0.6 oz pur e alcohol) rarely Sex and Gender Information Value Date Recorded Sex Assigned at Not on file Gender Identity Not on file Sexual Orientation Not on file Last Filed Vital Signs Vital Sign Reading Time Taken Comments Blood Pressure 145/64 02/27/2019 11:18 AM EST Pulse 73 02/27/2019 11:18 AM EST Temperature 36.2 ??C (97.2 ??F) 02/27/2019 11:[address] Respiratory Rate - - Oxygen Saturation - - Inhaled Oxygen Concentration - - Weight 60.3 kg (133 lb) 02/27/2019 11:18 AM EST Height 154.9 cm (5' 1 ) 02/27/2019 11:18 AM EST Body Mass Index 25.13 02/27/2019 11:18 AM EST Plan of Treatment Health Maintenance Due Date Last Done Comments COVID-19 Vaccine (#1) 1935 Depression Screening 1947 Preventative Health Evaluation 04/27/1953 DTap / Tdap / Td (1 - Tdap) 04/27/1954 Shingrix-Zoster Vaccine (1 of 2) 04/27/1985 Fall Risk Assessment 04/27/2000 Osteoporosis Screening (DEXA Scan) 04/27/2000 Pneumococcal Vaccine (1 of 1 - PCV) 04/27/2000 RSV Adult > 60+ Yrs or Pregn ant (1 - 1-dose 75+ series) 04/27/2010 Influenza Vaccine (#1) 2023 Hepatitis B Vaccines Aged Out No long er eligible based on patient's age to complete this topic RSV Ped < 20 months Aged Out No longe r eligible based on patient's age to complete this topic Care Teams Proof Machine Operator Relationship Specialty Start Date End Date Wenceslao Aquino MD [address] [facility] [address] [place] [address] PCP - General Sign Painter Apprentice 08/22/18
--- OUTSIDE RECORDS SUMMARY | 2024-04-16 19:34 | XMS_ITS | Encounter Summary ---
Author Organization [facility] [place] [address] Care Team Providers Care Pharmaceutical Plant Operator Name Role Phone Wenceslao Aquino MD Primary Care Provider [phone] Reason for Referral * Imaging (Routine) - Authorized Specialty Diagnoses / Procedures Referred By Kapil no Referred To Contact Radiology Diagnoses Breast pain Procedures US Breast Complete bilat Myrna Gore MD [address] [place] [address] Phone: tel: fax: [address] Phone: tel: Referral ID Status Reason Start Date Expiration Date V isits Requested Visits Authorized [id number] Authorized 04/13/2024 04/13/2025 1 1 Encounter Details Date Type Department Care Team ([facility] Contact Info) Description 04/13/2024 Telephone Obstetrics and Gynecology - [address] [phone] Ghada Tonye, BRANDI Social History Tobacco Use Types Packs/Day Years Used Date Smoking Tobacco: Never Smokeless Tobacco: Never Alcohol Use Standard Drinks/Week Comments Yes 0 (1 standard drink = 0.6 oz pur e alcohol) rare not in over a year Comments No Sex and Gender Information Value Date Recorded Sex Assigned at Not on file Legal Sex Female 9:27 PM EST Gender Identity Not on file Sexual Orientation Not on file documented as of this encounter Plan of Treatment Upcoming Encounters Date Type Department Care Team (Late st Contact Info) Description 07/03/2024 10:50 AM EDT Appointment Radiology Department - [address] [phone] 07/03/2024 11:20 AM EDT Appointment Radiology Department - [address] [phone] Scheduled Orders Name Type Priority Associated Diagnoses Orde r Schedule MG Mammo Diagnostic Addl Views bilat Imaging Routine Breast pain Expected: 04/13/2024, Expires: 04/13/2025 US Breast Complete bilat Imaging Routine Breast pain Expected: 04/13/2024, Expires: 04/13/2025 documented as of this encounter Visit Diagnoses Diagnosis Breast pain- Primary Mastodynia documented in this encounter Care Teams Pharmaceutical Plant Operator Relationship Specialty Start Date End Date Wenceslao Aquino [facility] [address] [facility] [address] PCP - General Nurse Informatics Educator 08/22/18 documented as of this encounter
--- OUTSIDE RECORDS SUMMARY | 2024-04-16 19:34 | XMS_ITS | Patient Health Record ---
[facility] Address [address] [address] Care Team Providers Care Gas Pumping Station Operator Name Role Phone Wenceslao Aquino MD Primary Care Provider Dallin Sharpe Unavailable [phone] Allergies Allergen (clinical drug ingredient) Drug/Non Drug Allergy documented on EMR Reaction Allergy Type Onset Date Status ePHEDrine HCl rapid heart rate Drug Allergy Active Adhesive Tape rash Drug Allergy Act gianluca Reason For Referral No Information Medications Medication SIG (Take, Route, Frequency, Duration) Notes Start Date End Date Status Metoprolol Succinate ER 50 MG Oral for 90 Active Multivitamin Active Methadone HCl Not-Ta sarwat hydrOXYzine HCl 25 MG/ML as directed Active Diclofenac Sodium 75 MG Oral for 90 Not-Taking MiraLax Active Ammonium Lactate 12 % APPLY CREAM TOPICA LLY TO AFFECTED AREA TWICE DAILY TO FEET for 30 Active Atorvastatin Calcium Active Gabapentin 300 MG Orally No t-Taking Calcium + D Active Ranitidine PRN Not-Takin g Ciclopirox Olamine 0.77 % 1 application Externally Twice a day for 30 days Active potassium Not-Taking Align Active Chlorthalidone 25 MG 1 tablet in the morning with food Orally Once a day for 30 day(s) Water Pill Not-Taking predniSONE 20 MG Oral for 10 N ot-Taking Boostrix 5-2.5-18.5 Intramuscular for 1 Not-Taking dilTIAZem HCl ER Coated Beads 180 MG 1 capsule Orally Once a day Active Yuvafem 10 MCG Vaginal for 84 Not-Taking Doxycycline Hyclate 100 MG Oral for 10 Not-Taking Immunizations Vaccine Route Administration Date Status Comme nts COVID-19 [employer] Vaccine Unknown 10/15/2021 Administered 1st 03/15/2020 [...] W/U Status Risk Notes Problem Atherosclerosis of [place] arteries of the extremities ([id number]) Atherosclerosis of [place] artery of both lower extremities, with unspecified presence of clinical manifestation (I70.203) Active confirmed Vital Signs Blood pressure diastolic 70 mm Hg 02/14/2024 Height 5 ft 1.5 in in 02/14/2024 Blood pressure systolic 130 mm Hg 02/14/2024 Weight 120 lbs 02/14/2024 BMI 22.3 kg/m2 02/14/2024 Procedures Procedure Date Ordered Date Performed Result Body Sit e 57321-EJFSOWX NAIL, 6 OR MORE 08/02/2023 N/A 99729-QGAL SKIN LESIONS, OVER 4 08/02/2023 N/A 73456-MFEWUOD NAIL, 6 OR MORE 11/04/2023 N/A 91082-DNOW SKIN LESIONS, OVER 4 11/04/2023 N/A 53941-BAPPMGH NAIL, 6 OR MORE 02/14/2024 N/A 32480-XVHM SKIN LESIONS, OVER 4 02/14/2024 N/A Encounters Encounter [facility] Date [facility] [address] [facility]/02/2023 Dallin Alvarado Atherosclerosis of [place] artery of both lower extremities, with unspecified presence of clinical manifestation I70.203 ; Onychomycosis B35.1 ; Pain of toe of right foot M79.674 and Pain of toe of left foot M79.[address] [facility] [address] 11/04/2023 Dallin Alvarado Atherosclerosis of [place] artery of both lower extremities, with unspecified presence of clinical manifestation I70.203 ; Onychomycosis B35.1 ; Pain of toe of right foot M79.674 ; Pain of toe of left foot M79.675 and Xerosis of skin L85.[address] [address] 02/14/2024 Dallin Alvarado Atherosclerosis of [place] artery of both lower extremities, with unspecified presence of clinical manifestation I70.203 ; Onychomycosis B35.1 ; Pain of toe of right foot M79.674 ; Pain of toe of left foot M79.675 and Xerosis of skin L85.[address] [address] 05/20/2023 Dallin Alvarado Assessments Encounter Date Diagnosis (ICD Code) Assessment Notes Treatment Notes Treatment Clinical Notes Section Notes 08/02/2023 Onychomycosis (ICD-10 - B35.1) 08/02/2023 Atherosclerosis of [place] artery of both lower extremities, with unspecified presence of clinical manifestation (ICD-10 - I70.203) 11/04/2023 Onychomycosis (ICD-10 - B35.1) 11/04/2023 Atherosclerosis of [place] artery of both lower extremities, with unspecified presence of clinical manifestation (ICD-10 - I70.203) 02/14/2024 Onychomycosis (ICD-10 - B35.1) 02/14/2024 Atherosclerosis of [place] artery of both lower extremities, with unspecified presence of clinical manifestation (ICD-10 - I70.203) 08/02/2023 Pain of toe of right foot (ICD-10 - M79.674) 02/14/2024 Pain of toe of right foot (ICD-10 - M79.674) 11/04/2023 Pain of toe of right foot (ICD-10 - M79.674) 08/02/2023 Pain of toe of left foot (ICD-10 - M79.675) 11/04/2023 Pain of toe of left foot (ICD-10 - M79.675) 02/14/2024 Pain of toe of left foot (ICD-10 - M79.675) 02/14/2024 Xerosis of skin (ICD-10 - L85.3) 11/04/2023 Xerosis of skin (ICD-10 - L85.3) Plan Of Treatment Pending Test Test Name Order Date 34681-PSNFBES NAIL, 6 OR MORE 11/18/2017 81748-HUWIKFT NAIL, 6 OR MORE 03/14/2018 34402-ASIAPWX NAIL, 6 OR MORE 06/13/2018 78767-UMZUOUH NAIL, 6 OR MORE 09/12/2018 13552-FDSOHFV NAIL, 6 OR MORE 12/12/2018 34824-ZXORRSS NAIL, 6 OR MORE 03/20/2019 55687-MBGNIPA NAIL, 6 OR MORE 06/19/2019 30991-MSPVUQI NAIL, 6 OR MORE 09/21/2019 63235-MXGBGIQ NAIL, 6 OR MORE 12/21/2019 50906-BEBNHUB NAIL, 6 OR MORE 03/25/2020 20206-BWCQHGR NAIL, 6 OR MORE 06/24/2020 15417-BMAQGBO NAIL, 6 OR MORE 09/23/2020 61679-FEZNLCI NAIL, 6 OR MORE 12/23/2020 43144-HPJDTXA NAIL, 6 OR MORE 03/24/2021 25018-ZYEKXNI NAIL, 6 OR MORE 06/23/2021 96480-CHEQLOT NAIL, 6 OR MORE 09/15/2021 63636-LEWSRWZ NAIL, 6 OR MORE 01/12/2022 01677-VFHIZHW NAIL, 6 OR MORE 05/11/2022 05825-ECWWEQO NAIL, 6 OR MORE 08/13/2022 37852-RVJESMI NAIL, 6 OR MORE 11/23/2022 27529-EGCSRTY NAIL, 6 OR MORE 02/25/2023 03006-WKODWHM NAIL, 6 OR MORE 08/02/2023 46357-ELPOEEE NAIL, 6 OR MORE 11/04/2023 08956-KCNBPYD NAIL, 6 OR MORE 02/14/2024 46873-PZQZ SKIN LESIONS, OVER 4 02/13/19 76571-EXKX SKIN LESIONS, OVER 4 11/04/19 24 00499-OVHT SKIN LESIONS, OVER 4 08/02/19 24 80171-UERQ SKIN LESIONS, OVER 4 02/25/19 24 76489-KAAV SKIN LESIONS, OVER 4 11/24/19 23 97776-AYPW SKIN LESIONS, OVER 4 08/14/19 23 37470-VJRX SKIN LESIONS, OVER 4 05/12/19 23 21103-IPUD SKIN LESIONS, OVER 4 01/13/20 22 94115-BDIM SKIN LESIONS, OVER 4 09/16/19 22 84667-ZBYO SKIN LESIONS, OVER 4 06/24/19 22 52370-QCTL SKIN LESIONS, OVER 4 03/24/19 22 77364- Biopsy of skin lesion 10/14/2017 Next Appt Details Provider Name:Dallin Alvarado , 05/15/2024 10:00:00 AM, [address] [facility], [place], [address], Insurance Providers Payer Name Payer Address Payer Phone Subscriber Number Group Number Insured Name Patient Relationship to Insured Coverage Start Date Coverage End Date Medicare National [employer]t [employer] [address] [place] [address] [id number] Alessandra Edwards Self - patient is the insured 4 [employer] [address] [place] [address] [id number] Alessandra Edwards Self - patient is the insured Medical (General) History Medical History History ICD Code Arthritis Cholesterol Diverticulosis High blood pressure Sinus conditions Measles Mumps Chicken pox Joint implants/screws Transfusions Surgical History Surgery Date(Month/Year) spinal fusion L4 & L5 2006 left hip replacement 2012 right hip replacement 2013 cataract surgery 2015 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
--- OUTSIDE RECORDS SUMMARY | 2024-04-16 19:34 | XMS_ITS ---
Author Organization [facility] Address [address] [place] [address] Care Team Providers Care Vacuum Pan Operator Name Role Phone Wenceslao Aquino MD Primary Care Provider Dallin Sharpe Unavailable [phone] Allergies Allergen (clinical drug ingredient) Drug/Non Drug [...] Ordered Date Performed Result Body Sit e 62503-HRZMXOT NAIL, 6 OR MORE 08/02/2023 N/A 44262-LZQV SKIN LESIONS, OVER 4 08/02/2023 N/A Encounters Encounter Location Date Provider Diagnosis [facility] [place] [address] [place] [address] 08/02/2023 Dallin Alvarado Atherosclerosis of [place] artery of both lower extremities, with unspecified presence of clinical manifestation I70.203 ; Onychomycosis B35.1 ; Pain of toe of right foot M79.674 and Pain of toe of left foot M79.675 Assessments Encounter Date Diagnosis (ICD Code) Assessment Notes Treatment Notes Treatment Clinical Notes Section Notes 08/02/2023 Atherosclerosis of [place] artery of both lower extremities, with unspecified presence of clinical manifestation (ICD-10 - I70.203) 08/02/2023 Onychomycosis (ICD-10 - B35.1) 08/02/2023 Pain of toe of right foot (ICD-10 - M79.674) 08/02/2023 Pain of toe of left foot (ICD-10 - M79.675) Plan Of Treatment Pending Test Test Name Order Date 65630-SKZHLXM NAIL, 6 OR MORE 08/02/2023 43013-SGAW SKIN LESIONS, OVER 4 08/02/19 24 Next Appt Details Follow Up: prn, Reason: Provider Name:Dallin Alvarado , 05/15/2024 10:00:00 AM, [address] [place] [address], [id number], Procedure Notes * Category Sub-Category Detail Notes [...] as necessary. Patient chooses, no pharmaceutical tx (63883) Keratoma Treatment Parring or Cutting o f Benign Hyperkeratotic Lesion(s) 86759 ( >4 Lesions) - The Benign hyperkeratotic lesions, as described above were pared, and/or cut utilizing a sterile #15 blade, tissue nippers, and/or dremel, Q8 Progress Notes * Alessandra EDWARDS EDOB: [birth year] (88 yo F)Acc No.[id number]:08/02/2023 Progress Note Patient:?Alessandra Edwards Provider:?Dallin Alvarado DPM :1935???Age:88 Y???Sex:Female D ate:08/02/2023 Address:[address] [place] [address], [place], [place] Pcp:Wenceslao Aquino MD Subjective: * Chief Complaints: [...] * Assessment: 1.?Onychomycosis - B35.1?2.? Atherosclerosis of [place] artery of both lower extremities, with unspecified presence of clinical manifestation - I70.203?3.?Pain of toe of right foot - M79.674?4.?Pain of toe of left foot - M79.675? Plan: * Treatment: 2.?Atherosclerosis of [place] artery of both lower extremities, with unspecified presence of clinical manifestation?Procedure: 04940-SKAH SKIN LESIONS, OVER 4 * Procedures:?Debride Nail 6-10:?Nail debridement?Nail debridement performed extensively to reduce/remove overall nail length, girth, thickness, subungual debris, and necrotic tissue, by manual and electrical means through the use of a nail nipper and/or dremel, to more viable healthy nail plate or bed tissue 1-5. Silver nitrate used for any petechial bleeding as necessary. Patient chooses, no pharmaceutical tx (81702).?Keratoma Treatment:?Parring or Cutting of Benign Hyperkeratotic Lesion(s)?09661 ( >4 Lesions) - The Benign hyperkeratotic lesions, as described above were pared, and/or cut utilizing a sterile #15 blade, tissue nippers, and/or dremel, Q8.? * Procedure Codes:?94871 DEBRI DE NAIL, 6 OR MORE, Modifiers: XS 36159 TRIM SKIN LESIONS, OVER 4, Modifiers: XS , Q8 * Follow Up:?prn * Images: * Sign off status: Completed Addendum: * ? true * Provider:?Dallin Alvarado DPM Date:?2023 Generated for Terell larkin/Sarah Beth/Sylviaitting on:?04/16/2024 07:33 PM EDT History and Physical Notes * [...] 1, B/L , Heel(s), B/L Vascular DP PULSES (B): 1/4, LEFT, 0/4, RIGHT PT PULSES (B): 0/4, B/L CAPILLARY FILL TIME: delayed, all digits , B/L TEMPERTURE GRADIENT (C): decreased, cool to cool, proximal to distal, B/L TROPHIC CONDITION-TEXTURE/ELASTICITY/TURGOR/HAIR GROWTH (B): decreased, B/L EDEMA (C): absent, B/L CLAUDICATION (C): denies, B/L REST PAIN: denies, B/L PIGMENTATION: pale, B/L Nails NAILS are: Elongated, overg rown, dystrophic, lytic, greater than 3mm thick, discolored and friable with crumbly malodorous subungual debris, with pain on palpation, 1-5 B/L
--- OUTSIDE RECORDS SUMMARY | 2024-04-16 19:34 | XMS_ITS ---
Author Organization [facility] Address [address] [place] [address] Care Team Providers Care Auriculotherapist Name Role Phone Wenceslao Aquino MD Primary Care Provider Dallin Sharpe Unavailable [phone] Allergies Allergen (clinical drug ingredient) Drug/Non Drug Allergy documented on EMR Reaction Allergy Type Onset Date Status ePHEDrine HCl rapid heart rate Drug Allergy Active Adhesive Tape rash Drug Allergy Act gianluca REASON FOR VISIT At Risk Footcare, Painful Nail(s) aggrevated by shoes and causing difficulty standing/walking., Skin problem(s) Medications Medication SIG (Take, Route, Frequency, Duration) Notes Start Date End Date Status Ranitidine PRN Not-Takin g predniSONE 20 MG Oral for 10 N ot-Taking Boostrix 5-2.5-18.5 Intramuscular for 1 Not-Taking Yuvafem 10 MCG Vaginal for 84 Not-Taking Doxycycline Hyclate 100 MG Oral for 10 Not-Taking Methadone HCl Not-Ta sarwat Diclofenac Sodium 75 MG Oral for 90 Not-Taking Gabapentin 300 MG Orally No t-Taking potassium Not-Taking Chlorthalidone 25 MG 1 tablet in the morning with food Orally Once a day for 30 day(s) Water Pill Not-Taking MiraLax Active Ammonium Lactate 12 % APPLY CREAM TOPICA LLY TO AFFECTED AREA TWICE DAILY TO FEET for 30 Active dilTIAZem HCl ER Coated Beads 180 MG 1 capsule Orally Once a day Active Metoprolol Succinate ER 50 MG Oral for 90 Active Multivitamin Active hydrOXYzine HCl 25 MG/ML as directed Active Atorvastatin Calcium Active Calcium + D Active Ciclopirox Olamine 0.77 % 1 application Externally Twice a day for 30 days Active Align Active Social History Tobacco Use: Social History [...] Signs Height 5 ft 1.5 in in 02/14/2024 Weight 120 lbs 02/14/2024 BMI 22.3 kg/m2 02/14/2024 Blood pressure systolic 130 mm Hg 02/13/19 25 Blood pressure diastolic 70 mm Hg 025 Procedures Procedure Date Ordered Date Performed Result Body Sit e 24670-HSVYHQS NAIL, 6 OR MORE 02/14/2024 N/A 03307-DLMZ SKIN LESIONS, OVER 4 02/14/2024 N/A Encounters Encounter Location Date Provider Diagnosis [facility] [place] [address] [place] [address] 02/14/2024 Dallin Alvarado Atherosclerosis of [place] artery of both lower extremities, with unspecified presence of clinical manifestation I70.203 ; Onychomycosis B35.1 ; Pain of toe of right foot M79.674 ; Pain of toe of left foot M79.675 and Xerosis of skin L85.3 Assessments Encounter Date Diagnosis (ICD Code) Assessment Notes Treatment Notes Treatment Clinical Notes Section Notes 02/14/2024 Atherosclerosis of clark[place] point artery of both lower extremities, with unspecified presence of clinical manifestation (ICD-10 - I70.203) 02/14/2024 Onychomycosis (ICD-10 - B35.1) 02/14/2024 Pain of toe of right foot (ICD-10 - M79.674) 02/14/2024 Pain of toe of left foot (ICD-10 - M79.675) 02/14/2024 Xerosis of skin (ICD-10 - L85.3) Plan Of Treatment Pending Test Test Name Order Date 75427-AGFERXW NAIL, 6 OR MORE 02/14/2024 45561-CJIG SKIN LESIONS, OVER 4 02/13/19 Next Appt Details Follow Up: prn, Reason: Provider Name:Dallin Alvarado , 05/15/2024 10:00:00 AM, [address] [place] [address], [phone], Procedure Notes * Category Sub-Category Detail Notes Debride Nail 6-10 Nail debridement Due to the cl inical pathology outlined in the exam findings, performance of this nail treatment is medically necessary as its management by an unskilled/untrained nonprofessional would put this patients foot and overall health at risk. Therefore, debridement to affected nail(s), as described in exam ( TA, T1, T2, T3, T4, T5, T6, T7, T8, T9), was performed exclusively by the physician of record to reduce/remove overall nail length, girth, thickness, subungual debris, and necrotic tissue, by manual and/or electrical means through the use of a nail nipper and/or dremel-type lens edge grinder machine, to a more viable healthy nail plate or bed tissue 6-10 nails in total. Silver nitrate was used for any petechial bleeding as necessary. Definitive antifungal treatment options, both pharmaceutical and surgical, have been reviewed and discussed with the patient. The patient solely prefers the use of intermittent/as needed professional debridement services for their nail condition and understands the need for additional periodic treatments to maintain effectiveness in symptomatic relief - 45964 Keratoma Treatment Parring or Cutting o f Benign Hyperkeratotic Lesion(s) (-57) More than 4 Lesions - Due to the at risk nature of the patients medical condition as documented in the exam findings, performance of this keratoderma treatment is medically necessary as its management by an unskilled/untrained nonprofessional would put this patients foot and overall health at risk. Therefore, the benign hyperkeratotic lesions, ( 6) in total, locations as stated and described in the exam ( Medial, IPJ, TA, Medial, IPJ, T5, SUB MTH (s), 1, B/L , Plantar, Heel(s), B/L ), were pared, and/or cut utilizing a sterile 15 blade, tissue nippers, and/or power dremel instrumentation by the physician of record - 96814, Q8 Progress Notes * Alessandra EDWARDS EDOB: [birth year] (88 yo F)Acc No.[id number]:02/14/2024 Progress Note Patient:Alessandra SANDOVAL Provider:?Dallin Alvarado DPM :1935???Age:88 Y???Sex:Female D ate:02/14/2024 Address:[address] [place] [address], [place], [id number] Pcp:Wenceslao Aquino MD Subjective: * Chief Complaints: * ???At Risk FootcarePainful N ail(s) aggrevated by shoes and causing difficulty standing/walking.Skin problem(s) * HPI: ???At Risk footcare:?Pt States Last PCP Visit:?Date?08/22/2023 ???Skin problems:?Treatments:?medication ( AM Lactin ), states adherence to recommended treatment application.? * ROS:?General/Constitutional:?Nausea?denies.?Vomiting?denies.?Hunger Thirst?denies.?Loss appetite?denies.?Chills?denies.?Fatigue?admits.?Fever?denies.?Night Sweats?are intermittent, admits.?Unexplained [...] ion L4 & L5 2007left hip replacement 2012right hip replacement 2014cataract surgery 2015basal cell removal on face 2016growth removed head 04/2022 * Hospitalization/Major Diagno stic Procedure:?[facility]- Kidney surgery 12/2023 * Family History:?Mother: dece ased, defects, diagnosed with Other malignant neoplasm of unspecified site, Family history of arthritis.?Father: , diagnosed with Diabetic - NIDDM.? * [...] ?Marital status: . ?Occupation: Retired-, RN. * Medications:?TakinghydrOXYzi ne HCl 25 MG/ML Solution as directed Ciclopirox Olamine 0.77 % Cream 1 application [...] AFFECTED AREA TWICE DAILY TO FEET Taking hydrOXYzine HCl 25 MG/ML Solution as directed Taking Ciclopirox Olamine 0.77 % Cream 1 [...] Vitals:?Ht: 5 ft 1.5 in, Wt: 120, BMI: 22.3, Shoe size:6.5-7, BP:130/70mm Hg, Wt- k.43 kg. * Examination: ???Vascular: ?DP PULSES (B):?0/4, RIGHT, [...] crumbly malodorous subungual debris, with pain on palpation,?TA, T1, T2, T3, T4, T5, T6, T7, T8, T9.?Dermatologic: ?SKIN FINDINGS:?Skin exam reveals Keratotic lesion(s) located at, Medial, IPJ, TA, Medial, IPJ, T5, SUB MTH (s), 1, B/L , Plantar, Heel(s), B/L , Skin shows approximately 90 percent LESS, sign(s) of, dryness, scaling, in a stocking fashion, no fissure(s) present, B/L.? Assessment: * Assessment: 1.?Onychomycosis - B35.1???2 .?Atherosclerosis of clark's point artery of both lower extremities, with unspecified presence of clinical manifestation - I70.203 (Primary)???3.?Pain of toe of right foot - M79.674???4.?Pain of toe of left foot - M79.675???5.?Xerosis of skin - L85.3???Specify :Acute problem, Stable Response to treatment - Improvement??? Plan: * Treatment: 2.?Onychomycosis?Procedure: 10937-FUBKCVH NAIL, 6 OR MORE * Procedures:?Debride Nail 6-10:?Nail debridement?Due to the clinical pathology outlined in the exam findings, performance of this nail treatment is medically necessary as its management by an unskilled/untrained nonprofessional would put this patients foot and overall health at risk. Therefore, debridement to affected nail(s), as described in exam (?TA, T1, T2, T3, T4, T5, T6, T7, T8, T9), was performed exclusively by the physician of record to reduce/remove overall nail length, girth, thickness, subungual debris, and necrotic tissue, by manual and/or electrical means through the use of a nail nipper and/or dremel-type lens edge grinder machine, to a more viable healthy nail plate or bed tissue 6- 10 nails in total. Silver nitrate was used for any petechial bleeding as necessary. Definitive antifungal treatment options, both pharmaceutical and surgical, have been reviewed and discussed with the patient. The patient solely prefers the use of intermittent/as needed professional debridement services for their nail condition and understands the need for additional periodic treatments to maintain effectiveness in symptomatic relief - 72083.?Keratoma Treatment:?Parring or Cutting of Benign Hyperkeratotic Lesion(s)?(-57) More than 4 Lesions - Due to the at risk nature of the patients medical condition as documented in the exam findings, performance of this keratoderma treatment is medically necessary as its management by an unskilled/untrained nonprofessional would put this patients foot and overall health at risk. Therefore, the benign hyperkeratotic lesions, ( 6) in total, locations as stated and described in the exam (?Medial,?IPJ,?TA,?Medial,?IPJ,?T5,?SUB MTH (s),?1,?B/L?,?Plantar,?Heel(s),?B/L?), were pared, and/or cut utilizing a sterile 15 blade, tissue nippers, and/or power dremel instrumentation by the physician of record - 30140, Q8.? * Procedure Codes:?94440 DEBRI DE NAIL, 6 OR MORE, Modifiers: XS 51370 TRIM SKIN LESIONS, OVER 4, Modifiers: XS , [id number] TOBACCO NON-USER * Preventive Medicine:? ??Counseling:?Discussion:?-12: Office or other outpatient visit for the evaluation and management of an established patient, which required a medically appropriate history and/or examination and STRAIGHTFORWARD level of MEDICAL DECISION MAKING, 1 SELF-LIMITED OR MINOR PROBLEM, MINIMAL- NO AMOUNT/COMPLEXITY OF DATA TO BE REVIEWED/ANALYZED, AND MINIMAL RISK OF COMPLICATION/MORBIDITY. The visit on the day of the [...] have encouraged the patient to call the office.?Xerosis:?Given recent successful results to treatment, The patient is to cont the rx cream as directed.? ??Screening/Special Tests:?Fall Risk?Screening:?No falls in the past year ?FALLS: Screening for Future Fall Risk?Have you had any falls with injury in the past year??No * Follow Up:?prn * Images: * Sign off status: Completed true * Provider:?Dallin Alvarado DPM Date:?2024 Generated for Terell lakrin/Sarah Beth/Ravi on:?04/16/2024 07:33 PM EDT History and Physical Notes * HPI (History of Present Illness) Category Sub-Category Detail Notes Category Not es Skin problems Treatments: medication ( AM Lactin ), states adherence to recommended treatment application At Risk footcare Pt States Last PCP Visit: Date: 08/22/2023 Examination Category Sub-Category Detail Notes Category Not es Dermatologic SKIN FINDINGS: Skin exam reveal s Keratotic lesion(s) located at, Medial, IPJ, TA, Medial, IPJ, T5, SUB MTH (s), 1, B/L , Plantar, Heel(s), B/L , Skin shows approximately 90 percent LESS, sign(s) of, dryness, scaling, in a stocking [...] malodorous subungual debris, with pain on palpation, TA, T1, T2, T3, T4, T5, T6, T7, T8, T9
[2024-04-16 19:35] LABS: Bacteria Urine None Seen (None Seen); Hyaline Casts Urine 0-2 /LPF (0-2); RBC Urine >20 /HPF (0-2); Squamous Epithelial Cell Urine 0-2 /HPF (0-2); UACC Culture Trigger YES; WBC Urine 0-5 /HPF (0-5)
[2024-04-16 19:37] LABS: Ethanol < 10 mg/dL
[2024-04-16 19:38] LABS: Alanine Aminotransferase 17 U/L (0-31); Albumin Level 4.1 g/dL (3.5-5.0); Alkaline Phosphatase 67 U/L (39-117); Anion Gap 13 (12-20); Aspartate Amino Transferase 26 U/L (5-31); Bilirubin Direct 0.1 mg/dL (0.0-0.5); Bilirubin Total 0.4 mg/dL (0.0-1.0); Blood Urea Nitrogen 18 mg/dL (9-16); C Reactive Protein 0.14 mg/dL (< or = 0.50); Calcium 9.6 mg/dL (8.4-10.2); Carbon Dioxide 25 mmol/L (22-29); Chloride 109 mmol/L (96-108); Creatinine Clr Calc Pharmacy 31.3; Estimated Glomerular Filt Rate 52; Glucose Random 108 mg/dL (60-115); Magnesium 2.3 mg/dL (1.6-2.6); Potassium 4.4 mmol/L (3.3-5.1); Sodium 143 mmol/L (135-145); Total Protein 7.3 g/dL (6.5-8.0)
[2024-04-16 19:41] LABS: B Type Natriuretic Peptide 91 pg/mL (<100)
[2024-04-16 19:46] LABS: Troponin-I High Sensitivity 2.9 ng/L (<3.5-17.0)
[2024-04-16 19:58] LABS: Influenza A PCR NEGATIVE (Negative); Influenza B PCR NEGATIVE (Negative); Resp Syncy Virus RNA Qual PCR NEGATIVE (Negative); SARS COV2 PCR INHOUSE NEGATIVE (Negative)
[2024-04-16 20:40] VITALS: BP 166/69; PULSE 72; RESP 12; TEMP 36.6; O2SAT 96
[2024-04-16] MEDS: cephALEXin 500 MG CAPSULE PO (20:41)
[2024-04-16 20:43] VITALS: BP 166/69; PULSE 72; RESP 12; TEMP 36.6; O2SAT 96
== END 2024-04-16 20:44 | disposition home or self-care (01) ==
PROVIDERS: Emergency Provider Emergency Medicine
DX: R41.0 Disorientation, unspecified (principal); R82.90 Unspecified abnormal findings in urine; R42 Dizziness and giddiness; I10 Essential (primary) hypertension; E78.5 Hyperlipidemia, unspecified; Z79.82 Long term (current) use of aspirin; Z79.899 Other long term (current) drug therapy; Z03.818 Encounter for observation for suspected exposure to other biological agents ruled out
CPT/HCPCS: 0241U; 36415; 70450; 80048; 80076; 80307; 81001; 83735; 83880; 84484; 85025; 86140; 87086; 93005; 99284

== ENCOUNTER → 2024-04-16 18:04 | Outpatient (BNV) | payer MEDICARE, SELFPAY | PROVIDERS: Emergency Provider Emergency Medicine; Visit Provider Internal Medicine | DX: I49.1 Atrial premature depolarization (principal) | CPT/HCPCS: 93010 ==

== ENCOUNTER → 2024-04-16 18:06 | Outpatient (BNV) | payer MEDICARE, SELFPAY | PROVIDERS: Emergency Provider Emergency Medicine; Visit Provider Radiology Diagnostic Radiology | DX: R41.82 Altered mental status, unspecified (principal) | CPT/HCPCS: 70450 ==

== ENCOUNTER 2024-07-12 02:52 | Inpatient (IN) | payer MEDICARE, SELFPAY ==
[2024-07-12] VITALS (30 sets, daily range): BP systolic 100–170; BP diastolic 43–90; PULSE 68–112; RESP 16–26; TEMP 36.1–39.7; O2SAT 92–100; BMI 24.8; BMI 22.5
--- NOTE | ~2024-07-12 | CT_ITS ---
CLINICAL HISTORY: elavated lfts, pt not verbal, abd pain? CT abdomen and pelvis without contrast Comparison: None Findings: No consolidation or effusion. The gallbladder is surgically absent. The liver appears normal in size and contour. There is mlnx-[id number] intrahepatic biliary dilation. The common bile duct appears dilated greater than expected in the setting of prior cholecystectomy. The spleen, pancreas, and bilateral adrenal glands are unremarkable in appearance. Contrast is identified within the bilateral renal collecting systems and ureters, limiting evaluation for urinary calculi. Parapelvic cysts are present bilaterally, more prominent on the right. No hydronephrosis appreciated. No bowel obstruction, pneumoperitoneum, or pneumatosis. Tiny hiatal hernia. There is colonic diverticulosis without CT evidence for acute diverticulitis. Severe atherosclerotic calcifications are present at the abdominal aorta. No abdominal aorta aneurysm. Bilateral hip prostheses are in place, producing artifact which limits evaluation of the pelvic structures. The bladder is partially distended with contrast material. No focal bladder wall thickening identified. The uterus is not visualized, presumed surgically absent. Nonvisualization of the appendix. No acute fracture visualized. There is grade 1 anterolisthesis of L3 on L4 and also of L4 on L5. Multilevel degenerative disc disease/vacuum disc phenomenon present at the lumbar spine. IMPRESSION: 1. Surgically absent gallbladder with lgld-zf-[id number] intrahepatic biliary dilation and dilation of the common bile duct greater than expected in the setting of prior cholecystectomy. Recommend clinical correlation with any history of cholestatic labs to evaluate for underlying biliary obstruction/stasis. May also consider MRCP examination for further evaluation. 2. Colonic diverticulosis. No CT evidence for acute diverticulitis. This document has been electronically signed by: Davion Rogers MD on 07/12/2024 05:13:47
--- NOTE | ~2024-07-12 | FL_ITS ---
EXAMINATION: FL GUIDANCE ONLY HISTORY: ERCP COMPARISON: Correlation is made with a CT of the abdomen without contrast dated 07/12/2024. TECHNIQUE: Fluoroscopy time: 2.0 minutes. Cumulative Dose: 26.7 mGy. DAP: 7.3 mGym2 Images: 6. FINDINGS: Images demonstrate opacification of the common bile duct and intrahepatic biliary radicles which are mild to moderately dilated. No definite intraluminal filling defects are identified. FL/FL guidance in OR IMPRESSION: Fluoroscopy during procedure. Please see procedure report for additional information. Electronically signed by: Reggie Durbin MD 07/12/2024 02:26 PM EDT
--- NOTE | ~2024-07-12 | XR_ITS ---
CLINICAL HISTORY: fever 1 view chest x-ray Comparison: CT/SR - CT ABDOMEN PELVIS WO IV CON - 07/12/24 04:19 EDT Findings: Mild elevation of the right hemidiaphragm. Cardiac silhouette is within normal limits. Minor areas of atelectasis within the lung bases. No dense area of consolidation. No pleural effusion or pneumothorax. Scattered degenerative change throughout the thoracic spine. IMPRESSION: No acute infiltrate. This document has been electronically signed by: Luis Armando Bicrh MD on 07/12/2024 07:52:20
--- NOTE | ~2024-07-12 | CT_ITS ---
CLINICAL HISTORY: AMS, mild aphasia disarthria CT angiography head and neck with contrast. 3-D postprocessing Comparison: CT/SR - CT HEAD FOR STROKE - 07/12/24 02:59 EDT Findings: The bilateral common carotid arteries and cervical portions of the internal carotid arteries appear patent without hemodynamically significant stenosis. The vertebral arteries appear patent bilaterally at the level of the neck. No carotid or vertebral dissection is seen. There is no evidence of vasculitis. No focal consolidation or effusion identified within the visualized portions of the bilateral lung apices. The intracranial vertebrobasilar system appears patent. Cerebellar and posterior cerebral arteries are intact. Areas of moderate luminal stenosis are present at the bilateral posterior cerebral arteries. Intracranial internal carotid arteries appear patent. Mimb-qt-tuxdilre calcifications are identified of the intracranial portions of the bilateral ICAs. Middle/anterior cerebral arteries also appear patent. No aneurysms or abrupt cutoffs visualized. Impression: 1. Patent bilateral carotid and vertebral arterial systems at the level of the neck without hemodynamically significant stenosis. 2. Patent anterior and posterior intracranial arterial circulation. No large vessel occlusion. This document has been electronically signed by: Davion Rogers MD on 07/12/2024 04:18:37
--- NOTE | ~2024-07-12 | CT_ITS ---
CLINICAL HISTORY: AMS, mild aphasia disarthria CT head without contrast Comparison: 04/16/2024 Findings: No intracranial mass, midline shift, hydrocephalus, or acute hemorrhage. There is generalized cerebral volume loss. Mild nonspecific periventricular and subcortical white matter changes are identified, which may be seen in the setting of chronic small vessel ischemic disease. Xjid-jq-wmbyqxcz mucosal thickening identified within the right ethmoid air cells and right maxillary sinus. Minimal mucosal thickening present at the right sphenoid sinus. The bilateral mastoid air cells appear clear. No acute skull fracture. Impression: 1. No acute intracranial abnormality. No acute intracranial hemorrhage. This document has been electronically signed by: Davion Rogers MD on 07/12/2024 03:16:44
--- NOTE | 2024-07-12 03:00 | ECG_ITS ---
Test Reason : STROKE Blood Pressure : */* mmHG Vent. Rate : 111 BPM Atrial Rate : 111 BPM P-R Int : 168 ms QRS Dur : 72 ms QT Int : 296 ms P-R-T Axes : * 15 41 degrees QTcB Int : 402 ms Sinus tachycardia Nonspecific ST and T wave abnormality Abnormal ECG When compared with ECG of 16-Apr-2024 18:56, Premature atrial complexes are no longer Present Nonspecific T wave abnormality now evident in Anterolateral leads Referred By: Allison Moon Electronically Signed By: WARREN HALL
[2024-07-12 03:10] LABS: Prothrombin Time Whole Bld POC 12.5 sec (11.1-13.5)
[2024-07-12] MEDS: iohexoL 350 MG/ML 100 ML INFUS..BTL 65 ML IV (03:20)
[2024-07-12 03:29] LABS: Basophils Percent Auto 0.4 % (0-2); Hemoglobin 10.5 g/dl (12.0-16.0); Imm Gran Abs Auto 0.02 X10*3/uL (0.00-0.03); Imm Gran Pct Auto 0.4 % (0.0-0.4); Lymphocytes Absolute Auto 0.2 X10*3/uL (1.2-4.9); Lymphocytes Percent Auto 4.1 % (20-40); MANUAL DIFF FLAG SCAN; Mean Corpuscular Hemoglobin 37.8 pg (27.0-33.0); Mean Corpuscular Volume 107.9 fL (80.0-98.0); Mean Platelet Volume 9.6 fL (9.4-12.3); Monocytes Absolute Auto 0.1 X10*3/uL (0.1-1.2); Monocytes Percent Auto 2.2 % (2-11); Neutrophils Absolute Auto 4.7 x10*3/uL (2.0-8.3); Neutrophils Percent Auto 92.9 % (45-73); Platelet Count 219 X10*3/uL (160-400); Red Blood Count 2.78 X10*6/uL (4.20-5.50); Red Cell Distribution Width 13.4 % (11.0-16.0); SCAN SMEAR FLAG 1; White Blood Count 5.1 X10*3/uL (4.8-10.8)
[2024-07-12] MEDS: 0.9 % Sodium Chloride 2,000 ML 999 ML IVCONT (03:33)
[2024-07-12 03:35] LABS: SLIDE REVIEW VERIFIED
[2024-07-12] MEDS: cefTRIAXone sodium 1 GM VIAL IVPUSH (03:53)
[2024-07-12 03:59] LABS: Alanine Aminotransferase 516 U/L (0-31); Albumin Level 3.4 g/dL (3.5-5.0); Alkaline Phosphatase 122 U/L (39-117); Anion Gap 12 (12-20); Aspartate Amino Transferase 536 U/L (5-31); Bilirubin Direct 0.7 mg/dL (0.0-0.5); Bilirubin Total 2.3 mg/dL (0.0-1.0); Blood Urea Nitrogen 16 mg/dL (9-16); Calcium 8.6 mg/dL (8.4-10.2); Carbon Dioxide 21 mmol/L (22-29); Chloride 101 mmol/L (96-108); Creatinine Clr Calc Pharmacy 32.6; Estimated Glomerular Filt Rate 49; Ethanol < 10 mg/dL; Glucose Random 168 mg/dL (60-115); Magnesium 1.9 mg/dL (1.6-2.6); Potassium 5.3 mmol/L (3.3-5.1); Sodium 129 mmol/L (135-145); Total Protein 6.2 g/dL (6.5-8.0)
[2024-07-12] MEDS: Acetaminophen Supp 650 MG SUPP.RECT PR (04:10)
[2024-07-12 04:11] LABS: Appearance Urine Clear; Color Urine Yellow; Glucose Urine UA Negative (Negative); Leukocyte Esterase Urine Negative (Negative); Nitrite Urine Negative (Negative); PH 6.5 (5.0-9.0); Specific Gravity - Urine 1.025 (1.005-1.025); UMIC TRIGGER UACC YES; Urine Blood Moderate (2+) (Negative); Urine Ketones Negative (Negative); Urine Protein 30 (1+) mg/dL (Neg-Trace)
--- NOTE | 2024-07-12 04:15 | ED.NEUROSD ---
HPI - Neuro Symptoms/Deficit General Chief Complaint: Stroke Stated Complaint: stroke alert Time Seen by Provider: 07/12/24 02:58 Source: EMS Mode of arrival: EMS Limitations: other History of Present Illness ED Provider: Dr. Allison Moon HPI Narrative: Patient comes to the emergency room via ambulance. According to EMS, the of the patient states that they went to her routine doctor's office at 11:00 yesterday. Patient came home, took a nap for several hours, he woke up after a nap and states that his was acting weird, seemed off. On arrival, patient is a bit sluggish, sitting in chair, answering questions, seems very confused. According to the patient's patient is not on any blood thinners, no history of hypertension, seems compliant with medications Related Data Home Medications ?Medication ?Instructions ?Recorded ?Confirmed diltiazem HCl 120 mg 120 mg PO ONCE 08/17/23 10/07/23 capsule,extended release 12 hr estradiol 0.01% (0.1 mg/gram) 1 g vaginal 3XW 08/17/23 10/07/23 vaginal cream hydroxyzine HCl 25 mg tablet 25 mg PO BID PRN 08/17/23 10/07/23 metoprolol succinate 25 mg 25 mg PO DAILY 08/17/23 10/07/23 tablet,extended release 24 hr psyllium husk 0.4 gram capsule 0.4 g PO DAILY 08/17/23 10/07/23 (Daily Fiber) vitamins A,C,E-cfua-bktkey 4,296 1 cap PO BID 08/17/23 10/07/23 mcg-226 mg-90 mg capsule (PreserVision AREDS) aspirin 81 mg tablet,delayed 81 mg PO DAILY 01/16/24 release Previous Rx's ?Medication ?Instructions ?Recorded cephalexin 500 mg capsule 500 mg PO BID 5 days #10 caps 04/16/24 Allergies Allergy/AdvReac Type Severity Reaction Status Date / Time perfume Allergy Unknown UNKNOWN Verified 07/12/24 03:16 [email or web address] [From Myrbetriq] AdvReac Intermediate Nausea Verified 07/12/24 03:16 Review of Systems Review of Systems: Yes Unobtainable due to mental status PMFSH Past Medical History Medical History High cholesterol Hypertension Restless legs Arthritis Surgical History (Updated 08/17/23 @ 14:19 by Lashonda Boyd, [employer], [employer]) History of lumbar fusion Social History Social History Patient Tobacco Use Status: Never used Tobacco Smoked in Last 30 Days: No Use of substances other than those prescribed or required for medical reasons: No Advance Directives: No Advance Directives Information Provided: Yes Physical Exam Vital Signs: Vital Signs: Last Vital Signs Temp 102.4 F H 07/12/24 05:42 Pulse 104 H 07/12/24 06:19 Resp 24 H 07/12/24 06:19 BP 143/64 H 07/12/24 06:19 Pulse Ox 96 07/12/24 06:19 O2 Del Method Nasal Cannula 07/12/24 06:19 O2 Flow Rate 2 07/12/24 06:19 BMI result Body Mass Index 24.8 Const: Other: Appearance: Alert. Confused , difficulty following commands Eyes: Pupils equal, round and reactive to light. ENT: Pharynx normal. Neck: Normal inspection. Neck supple. No lymph nodes noted. No crepitus CVS: Normal heart rate and rhythm. Pulses normal. Normal S1 and S2 Respiratory: No respiratory distress. Breath sounds normal. No Wheezing. No rales Abdomen: Soft and nontender. No rigidity. No distention. Skin: Skin warm and dry. Normal skin color. Normal skin turgor. Extremities: No lower extremity edema. No Lacerations. No Rash Neuro: Oriented X 3. No motor deficit. No sensory deficit. Moving all extremities. No slurred speech. CN 2 through 12 grossly intact Psych: calm, cooperative, normal affect Medications Administered Discontinued Medications Generic Name Dose Route Start Last Admin Trade Name Freq PRN Reason Stop Dose Admin Acetaminophen 650 mg 07/12/24 03:55 07/12/24 04:10 Acetaminophen Supp 650 Mg Supp.Rect [place] 07/12/24 03:56 650 mg ONCE ONE Administration Ceftriaxone Sodium 1 gm 07/12/24 03:30 07/12/24 03:53 Ceftriaxone Sodium 1 Gm Vial IVPUSH 07/12/24 03:31 1 gm ONCE ONE Administration Sodium Chloride 2,000 mls @ 999 mls/hr 07/12/24 03:30 07/12/24 05:34 Ns IVCONT 07/12/24 05:30 Infused .Q2H1M ONE Infusion Iohexol 65 ml 07/12/24 03:19 07/12/24 03:20 Iohexol 350 Mg/Ml 100 Ml Infus..Btl IV 07/12/24 03:20 65 ml ONCE ONE Administration Medical Decision Making Medical Decision Making [facility] Narrative: My interpretation of labs: Patient's white blood cell count within normal limits, patient's hemoglobin dropped from 12.0-10.5 in 3 months. Hematocrit 30, platelets 219 Patient does not take any blood thinners but does take baby aspirin daily. Coagulation time within normal limits. Patient's chemistry shows a sodium of 129, potassium of 5.3, lactic acid initially 2.4, after IV fluids 1.8 LFTs are markedly elevated. T bilirubin 2.3, D bili 0.7, AST 536, ALT 516, alk-phos 216, ammonia level is normal. Troponin within normal limits, urinalysis negative for UTI, Toxicology report negative for any drugs of abuse negative for alcohol, serology negative for influenza RSV and COVID Given patient's elevated LFTs, hepatitis panel was ordered and also acetaminophen levels. CT scan of the head and CTA of the head and neck do not show any acute abnormality or occlusions. CT of the abdomen shows a surgically absent gallbladder with mild to moderate intrahepatic biliary dilation of the common bile duct, patient will likely need an MRCP. MRCP has been ordered Initially patient had a fever of 103. I was considering doing a lumbar puncture. However, at this time, 06:58, patient is completely awake, alert, talking to us. Patient had a significant improvement after IV fluids and antibiotics. At this time, patient is awake, alert. Occult stool test is heme positive I discussed the patient with Dr. Gibbons from the Medicine team, patient to be admitted CXR pending, patient's serology tests are negative, patient has no URI symptoms Differential Diagnosis Differential Diagnoses: The differential diagnosis associated with the presentation includes (UTI, CVA, TIA, hepatitis, ascending cholangitis) Admission/Observation Consideration of admission/observation: Escalation of care including admission/observation considered Consult Healthcare Provider Management of the patient was discussed with: Hospitalist Lab Data [facility] Lab Attestation statement: I reviewed the patient's lab results. 07/12/24 03:24 07/12/24 03:24 Labs: Lab Results 07/12/24 07/12/24 07/12/24 Range/Units 03:06 03:24 03:49 WBC 5.1 (4.8-10.8) X10*3/uL RBC 2.78 L (4.20-5.50) X10*6/uL Hgb 10.5 L (12.0-16.0) g/dl Hct 30.0 L (37.0-47.0) % MCV 107.9 H (80.0-98.0) fL MCH 37.8 H (27.0-33.0) pg MCHC 35.0 (31.0-35.0) g/dl RDW 13.4 (11.0-16.0) % Plt Count 219 (160-400) X10*3/uL MPV 9.6 (9.4-12.3) fL Immature Gran % (Auto) 0.4 (0.0-0.4) % Neut % (Auto) 92.9 H (45-73) % Lymph % (Auto) 4.1 L (20-40) % [place] % (Auto) 2.2 (2-11) % Eos % (Auto) 0.0 (0-4) % Baso % (Auto) 0.4 (0-2) % Lymph # (Auto) 0.2 L (1.2-4.9) X10*3/uL [place] # (Auto) 0.1 (0.1-1.2) X10*3/uL Eos # (Auto) 0.0 (0.0-0.4) X10*3/uL Baso # (Auto) 0.0 (0.0-0.2) X10*3/uL Abs Immat Gran (auto) 0.02 (0.00-0.03) X10*3/uL Absolute Neuts (auto) 4.7 (2.0-8.3) x10*3/uL Absolute Nucleated RBC 0.000 (0.0-0.012) X10*3/uL Nucleated RBC % (auto) 0.0 (0.0-0.2) /100WBC Smear Tech's Comments VERIFIED Whole Blood PT 12.5 (11.1-13.5) sec Whole Blood INR 1.0 (0.9-1.1) Sodium 129 L (135-145) mmol/L Potassium 5.3 H D (3.3-5.1) mmol/L Chloride 101 (96-108) mmol/L Carbon Dioxide 21 L (22-29) mmol/L Anion Gap 12 (12-20) BUN 16 (9-16) mg/dL Creatinine 1.05 (0.5-1.4) mg/dL Estim Creat Clear Calc 32.6 Estimated GFR 49 Random Glucose 168 H (60-115) mg/dL Lactic Acid 2.4 H* (0.5-2.0) mmol/L Lactic Acid F/U @ 2Hr (0.5-2.0) mmol/L Calcium 8.6 D (8.4-10.2) mg/dL Magnesium 1.9 (1.6-2.6) mg/dL Total Bilirubin 2.3 H (0.0-1.0) mg/dL Direct Bilirubin 0.7 H (0.0-0.5) mg/dL AST 536 H (5-31) U/L ALT 516 H (0-31) U/L Alkaline Phosphatase 122 H (39-117) U/L Ammonia (13-55) umol/L Troponin I High Sens 4.2 (<3.5-17.0) ng/L Total Protein 6.2 L (6.5-8.0) g/dL Albumin 3.4 L (3.5-5.0) g/dL Urine Color Urine Appearance Urine pH (5.0-9.0) Ur Specific [place] (1.005-1.025) Urine Protein (Neg-Trace) mg/dL Urine Glucose (UA) (Negative) mg/dL Urine Ketones (Negative) mg/dL Urine Blood (Negative) Urine Nitrite (Negative) Ur Leukocyte Esterase (Negative) Urine RBC (0-2) /HPF Urine WBC (0-5) /HPF Ur Squamous Epith Cells (0-2) /HPF Urine Bacteria (None Seen) Hyaline Casts (0-2) /LPF Stool Occult Blood (NEGATIVE) Urine Opiates Screen (Not Detect) Ur Buprenorphine Scrn (Not Detect) ng/mL Ur Oxycodone Screen (Not Detect) ng/mL Urine Methadone Screen (Not Detect) ng/mL Urine Fentanyl Screen (Not Detect) Ur Barbiturates Screen (Not Detect) Ur Phencyclidine Scrn (Not Detect) Ur Amphetamines Screen (Not Detect) U Benzodiazepines Scrn (Not Detect) Urine Cocaine Screen (Not Detect) U Marijuana (THC) Screen (Not Detect) Ethyl Alcohol < 10 mg/dL Influenza Type A (PCR) (Negative) Influenza Type B (PCR) (Negative) RSV RNA Qual (PCR) (Negative) SARS-CoV-2 RNA (RT-PCR) (Negative) 07/12/24 07/12/24 07/12/24 Range/Units 03:52 05:52 06:05 WBC (4.8-10.8) X10*3/uL RBC (4.20-5.50) X10*6/uL Hgb (12.0-16.0) g/dl Hct (37.0-47.0) % MCV (80.0-98.0) fL MCH (27.0-33.0) pg MCHC (31.0-35.0) g/dl RDW (11.0-16.0) % Plt Count (160-400) X10*3/uL MPV (9.4-12.3) fL Immature Gran % (Auto) (0.0-0.4) % Neut % (Auto) (45-73) % Lymph % (Auto) (20-40) % [place] % (Auto) (2-11) % Eos % (Auto) (0-4) % Baso % (Auto) (0-2) % Lymph # (Auto) (1.2-4.9) X10*3/uL [place] # (Auto) (0.1-1.2) X10*3/uL Eos # (Auto) (0.0-0.4) X10*3/uL Baso # (Auto) (0.0-0.2) X10*3/uL Abs Immat Gran (auto) (0.00-0.03) X10*3/uL Absolute Neuts (auto) (2.0-8.3) x10*3/uL Absolute Nucleated RBC (0.0-0.012) X10*3/uL Nucleated RBC % (auto) (0.0-0.2) /100WBC Smear Tech's Comments Whole Blood PT (11.1-13.5) sec Whole Blood INR (0.9-1.1) Sodium (135-145) mmol/L Potassium (3.3-5.1) mmol/L Chloride (96-108) mmol/L Carbon Dioxide (22-29) mmol/L Anion Gap (12-20) BUN (9-16) mg/dL Creatinine (0.5-1.4) mg/dL Estim Creat Clear Calc Estimated GFR Random Glucose (60-115) mg/dL Lactic Acid (0.5-2.0) mmol/L Lactic Acid F/U @ 2Hr 1.8 (0.5-2.0) mmol/L Calcium (8.4-10.2) mg/dL Magnesium (1.6-2.6) mg/dL Total Bilirubin (0.0-1.0) mg/dL Direct Bilirubin (0.0-0.5) mg/dL AST (5-31) U/L ALT (0-31) U/L Alkaline Phosphatase (39-117) U/L Ammonia 37 (13-55) umol/L Troponin I High Sens (<3.5-17.0) ng/L Total Protein (6.5-8.0) g/dL Albumin (3.5-5.0) g/dL Urine Color Yellow Urine Appearance Clear Urine pH 6.5 (5.0-9.0) Ur Specific [place] 1.025 (1.005-1.025) Urine Protein 30 (1+) H (Neg-Trace) mg/dL Urine Glucose (UA) Negative (Negative) mg/dL Urine Ketones Negative (Negative) mg/dL Urine Blood Moderate (2+) H (Negative) Urine Nitrite Negative (Negative) Ur Leukocyte Esterase Negative (Negative) Urine RBC >20 H (0-2) /HPF Urine WBC 0-5 (0-5) /HPF Ur Squamous Epith Cells 0-2 (0-2) /HPF Urine Bacteria None Seen (None Seen) Hyaline Casts 0-2 (0-2) /LPF Stool Occult Blood (NEGATIVE) Urine Opiates Screen Not Detected (Not Detect) Ur Buprenorphine Scrn Not Detected (Not Detect) ng/mL Ur Oxycodone Screen Not Detected (Not Detect) ng/mL Urine Methadone Screen Not Detected (Not Detect) ng/mL Urine Fentanyl Screen Not Detected (Not Detect) Ur Barbiturates Screen Not Detected (Not Detect) Ur Phencyclidine Scrn Not Detected (Not Detect) Ur Amphetamines Screen Not Detected (Not Detect) U Benzodiazepines Scrn Not Detected (Not Detect) Urine Cocaine Screen Not Detected (Not Detect) U Marijuana (THC) Screen Not Detected (Not Detect) Ethyl Alcohol mg/dL Influenza Type A (PCR) NEGATIVE (Negative) Influenza Type B (PCR) NEGATIVE (Negative) RSV RNA Qual (PCR) NEGATIVE (Negative) SARS-CoV-2 RNA (RT-PCR) NEGATIVE (Negative) 07/12/24 Range/Units 06:50 WBC (4.8-10.8) X10*3/uL RBC (4.20-5.50) X10*6/uL Hgb (12.0-16.0) g/dl Hct (37.0-47.0) % MCV (80.0-98.0) fL MCH (27.0-33.0) pg MCHC (31.0-35.0) g/dl RDW (11.0-16.0) % Plt Count (160-400) X10*3/uL MPV (9.4-12.3) fL Immature Gran % (Auto) (0.0-0.4) % Neut % (Auto) (45-73) % Lymph % (Auto) (20-40) % [place] % (Auto) (2-11) % Eos % (Auto) (0-4) % Baso % (Auto) (0-2) % Lymph # (Auto) (1.2-4.9) X10*3/uL [place] # (Auto) (0.1-1.2) X10*3/uL Eos # (Auto) (0.0-0.4) X10*3/uL Baso # (Auto) (0.0-0.2) X10*3/uL Abs Immat Gran (auto) (0.00-0.03) X10*3/uL Absolute Neuts (auto) (2.0-8.3) x10*3/uL Absolute Nucleated RBC (0.0-0.012) X10*3/uL Nucleated RBC % (auto) (0.0-0.2) /100WBC Smear Tech's Comments Whole Blood PT (11.1-13.5) sec Whole Blood INR (0.9-1.1) Sodium (135-145) mmol/L Potassium (3.3-5.1) mmol/L Chloride (96-108) mmol/L Carbon Dioxide (22-29) mmol/L Anion Gap (12-20) BUN (9-16) mg/dL Creatinine (0.5-1.4) mg/dL Estim Creat Clear Calc Estimated GFR Random Glucose (60-115) mg/dL Lactic Acid (0.5-2.0) mmol/L Lactic Acid F/U @ 2Hr (0.5-2.0) mmol/L Calcium (8.4-10.2) mg/dL Magnesium (1.6-2.6) mg/dL Total Bilirubin (0.0-1.0) mg/dL Direct Bilirubin (0.0-0.5) mg/dL AST (5-31) U/L ALT (0-31) U/L Alkaline Phosphatase (39-117) U/L Ammonia (13-55) umol/L Troponin I High Sens (<3.5-17.0) ng/L Total Protein (6.5-8.0) g/dL Albumin (3.5-5.0) g/dL Urine Color Urine Appearance Urine pH (5.0-9.0) Ur Specific [place] (1.005-1.025) Urine Protein (Neg-Trace) mg/dL Urine Glucose (UA) (Negative) mg/dL Urine Ketones (Negative) mg/dL Urine Blood (Negative) Urine Nitrite (Negative) Ur Leukocyte Esterase (Negative) Urine RBC (0-2) /HPF Urine WBC (0-5) /HPF Ur Squamous Epith Cells (0-2) /HPF Urine Bacteria (None Seen) Hyaline Casts (0-2) /LPF Stool Occult Blood POSITIVE (NEGATIVE) Urine Opiates Screen (Not Detect) Ur Buprenorphine Scrn (Not Detect) ng/mL Ur Oxycodone Screen (Not Detect) ng/mL Urine Methadone Screen (Not Detect) ng/mL Urine Fentanyl Screen (Not Detect) Ur Barbiturates Screen (Not Detect) Ur Phencyclidine Scrn (Not Detect) Ur Amphetamines Screen (Not Detect) U Benzodiazepines Scrn (Not Detect) Urine Cocaine Screen (Not Detect) U Marijuana (THC) Screen (Not Detect) Ethyl Alcohol mg/dL Influenza Type A (PCR) (Negative) Influenza Type B (PCR) (Negative) RSV RNA Qual (PCR) (Negative) SARS-CoV-2 RNA (RT-PCR) (Negative) Independent Interpretation I performed an independent interpretation of an: EKG and CT Scan Radiology Impression Discussion of test interpretation with radiology: I have reviewed the radiologist's reading. Radiologist Impression: 1. Patent bilateral carotid and vertebral arterial systems at the level of the neck without hemodynamically significant stenosis. 2. Patent anterior and posterior intracranial arterial circulation. No large vessel occlusion. 1. Surgically absent gallbladder with [id number] intrahepatic biliary dilation and dilation of the common bile duct greater than expected in the setting of prior cholecystectomy. Recommend clinical correlation with any history of cholestatic labs to evaluate for underlying biliary obstruction/stasis. May also consider MRCP examination for further evaluation. 2. Colonic diverticulosis. No CT evidence for acute diverticulitis. Independent Historian Clinical information obtained from an independent historian. History obtained from or confirmed by: Spouse Critical Care Time Critical Care Time Critical Care Time: Yes Total Critical Care Time: 90 Attestation: I have personally provided critical care time. Time includes review of lab data, radiology results, discussion with consultants, and monitoring for potential decompensation. Intervention performed as documented. Discharge Plan Discharge Clinical Impression: Encephalopathy, Acute hyponatremia, Anemia, GI bleed, Ascending cholangitis Patient Disposition: Admitted As Inpatient Prescriptions: No Action cephalexin 500 mg capsule 500 mg PO BID 5 Days Qty: 10 0RF aspirin 81 mg tablet,delayed release (DR/EC) 81 mg PO DAILY diltiazem HCl 120 mg capsule,extended release 12 hr 120 mg PO ONCE metoprolol succinate 25 mg tablet extended release 24 hr 25 mg PO DAILY estradiol 0.01 % (0.1 mg/gram) cream 1 g vaginal 3XW psyllium husk [Daily Fiber] 0.4 gram capsule 0.4 g PO DAILY PreserVision AREDS 4,296 mcg-226 mg-90 mg capsule 1 cap PO BID hydroxyzine HCl 25 mg tablet 25 mg PO BID PRN Print Language: Setswana
[2024-07-12 04:20] LABS: Amphetamine Screen Urine Not Detected (Not Detect); Barbiturates, Urine Not Detected (Not Detect); Benzodiazepines Screen Urine Not Detected (Not Detect); Buprenorphine Scr Not Detected (Not Detect); Cannabinoid Screen Urine Not Detected (Not Detect); Cocaine Screen Urine Not Detected (Not Detect); Fentanyl, urine Not Detected (Not Detect); Methadone Screen, Urine Not Detected (Not Detect); Opiate Screen Urine Not Detected (Not Detect); Oxycodone Screen Urine Not Detected (Not Detect); Phencyclidine Screen Urine Not Detected (Not Detect)
[2024-07-12 04:24] LABS: Bacteria Urine None Seen (None Seen); Hyaline Casts Urine 0-2 /LPF (0-2); RBC Urine >20 /HPF (0-2); Squamous Epithelial Cell Urine 0-2 /HPF (0-2); WBC Urine 0-5 /HPF (0-5)
[2024-07-12 04:29] LABS: Lactic Acid 2.4 mmol/L (0.5-2.0)
[2024-07-12 04:38] LABS: Troponin-I High Sensitivity 4.2 ng/L (<3.5-17.0)
[2024-07-12 05:56] LABS: Reflex Lactate? Lactic Acid Added
[2024-07-12 06:15] LABS: Ammonia 37 umol/L (13-55)
[2024-07-12 06:34] LABS: ~Lactic Acid-LAB USE ONLY 1.8 mmol/L (0.5-2.0)
[2024-07-12 06:36] LABS: Influenza A PCR NEGATIVE (Negative); Influenza B PCR NEGATIVE (Negative); Resp Syncy Virus RNA Qual PCR NEGATIVE (Negative); SARS COV2 PCR INHOUSE NEGATIVE (Negative)
[2024-07-12 06:43] LABS: HBc Num1 0.09 S/CO (0.00-0.79); HBsAGNum1 0.34 S/CO (0.00-0.99); Hepatitis A Antibody IgM 0.19 Index (0-0.79); Hepatitis B Core Antibody Nonreactive (Nonreactive); Hepatitis B Surface Antigen Negative (Negative); ~HepC Num1 0.11 S/CO (0.00-0.79); ~Hepatitis A Antibody IgM Nonreactive (Nonreactive); ~Hepatitis B Surface Antibody NONREACTIVE (Nonreactive); ~Hepatitis C Antibody Nonreactive (Nonreactive)
--- NOTE | 2024-07-12 06:50 | PC.NURSE ---
report given to BRANDI Toney
[2024-07-12 06:56] LABS: OBS Int Ctl Valid YES; OBS1 POSITIVE (NEGATIVE)
[2024-07-12] MEDS: metroNIDAZOLE/NS 500 MG/100 ML PIGGYBACK 100 MG IV (07:58)
[2024-07-12 08:15] LABS: Acetaminophen LAB 9 mcg/mL (<30); Salicylate < 5.0 mg/dL (15-30)
--- NOTE | 2024-07-12 08:15 | P.HPHOSP_ITS ---
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 Pt is awake and alert and oriented x3, though reports he is unclear about events leading up to hospital presentation. HPI is thus supplemented by who was at bedside. Yesterday pt had an unremarkable PCP visit in the morning and was ?given a clean bill of health?. At home that afternoon noticed pt was ?out of it? and acting more confused and lethargic above baseline. Has been went to bed later that evening while pt was watching a TV show. Has been woke up at 01:00 and noticed pt was not in bed. Went downstairs to find her not sitting in her normal chair, confused, and not responding to questions. Attempted to a walk her upstairs to the bed, but was unable to and called EMS to bring her to the ED. did not otherwise noticed any other symptoms nor did pt complain of anything. Currently pt reports she feels ?fuzzy? and with some fogginess and thinking, but otherwise has no acute medical complaints. Denies nausea, vomiting, abdominal pain. No chest pain/pressure, palpitations. Denies shortness or breath or difficulty breathing. No cough. Denies headache or acute vision changes. No neck pain. Denies polyuria or dysuria. In the ED pt was febrile up to 103.4, tachycardic up to 112, and tachypneic up to 26, and mostly hypertensive as high as 167/69. Labs were significant for sodium 129, potassium 5.3, lactic acid 2.4, T bili 2.3, AST 536, ALT 516, and alk-phos 122. Ammonia WNL. No leukocytosis. Stable H&H and platelets. Renal function WNL. CXR showed no acute infiltrate. CTA of head/neck negative for hemodynamically significant stenosis or intracranial large vessel occlusion. ?CT of abdomen showing surgically absent gallbladder with [id number] intrahepatic biliary dilation and dilation of the CBD greater than expected. EKG demonstrated sinus tachycardia of [address] and T-wave abnormalities. Pt was treated in the ED with IVF, ceftriaxone, metronidazole, and acetaminophen. Pt is admitted to the hospital for treatment and further evaluation of acute metabolic encephalopathy in the setting of possible acute cholangitis with sepsis. Review of Systems 2 Review of Systems: Negative except for that which is stated in the [facility] Medical History High cholesterol Hypertension Restless legs Arthritis Surgical History History of lumbar fusion Social History Patient Tobacco Use Status: Never used Tobacco Smoked in Last 30 Days: No Use of substances other than those prescribed or required for medical reasons: No Advance Directives: No Advance Directives Information Provided: Yes Meds Allergies Allergy/AdvReac Type Severity Reaction Status Date / Time perfume Allergy Unknown UNKNOWN Verified 07/12/24 03:16 [email or web address] [From Myrbetriq] AdvReac Intermediate Nausea Verified 07/12/24 03:16 Home Medications ?Medication ?Instructions ?Recorded ?Confirmed ?Last Taken ?Type diltiazem HCl 120 mg 120 mg PO DAILY 08/17/23 07/12/24 07/11/24 History capsule,extended release 12 hr vitamins A,C,M-john-xfxxuh 4,296 1 cap PO BID 08/17/23 07/12/24 07/11/24 History mcg-226 mg-90 mg capsule (PreserVision AREDS) aspirin 81 mg tablet,delayed 81 mg PO DAILY 01/16/24 07/12/24 07/11/24 History release duloxetine 20 mg capsule,delayed 20 mg PO BID 07/12/24 07/12/24 07/11/24 History release hydroxyurea 500 mg capsule 500 mg PO DAILY 07/12/24 07/12/24 07/11/24 History hydroxyzine pamoate 25 mg capsule 25 mg PO TID PRN Anxiety 07/12/24 07/12/24 07/11/24 History metoprolol succinate 100 mg 50 mg PO DAILY 07/12/24 07/12/24 07/11/24 History tablet,extended release 24 hr Physical Exam 2 Vital Signs and Narrative: Vital Signs: Last Vital Signs Temp 101.2 F H 07/12/24 07:23 Pulse 87 07/12/24 08:04 Resp 21 H 07/12/24 08:04 BP 117/57 L 07/12/24 08:04 Pulse Ox 96 07/12/24 08:04 O2 Del Method Room Air 07/12/24 08:04 O2 Flow Rate 2 07/12/24 06:19 BMI result Body Mass Index 24.8 General: AOx3 though not fully to situation. Answering appropriately. In no acute distress Resp: CTA bilaterally CVS: S1, S2, RRR, +murmur GI: +BS, NT, no distention Skin: Warm, dry Neuro: Cranial nerves II-XII grossly intact bilaterally. Motor grossly intact bilaterally Extremities: No edema Psych: Appropriate affect Results Labs 07/12/24 03:24 07/12/24 03:24 Labs: Laboratory Results - last 24 hr 07/12/24 07/12/24 07/12/24 03:06 03:24 03:49 MCV 107.9 H MCH 37.8 H MCHC 35.0 RDW 13.4 Plt Count 219 MPV 9.6 Immature Gran % (Auto) 0.4 Neut % (Auto) 92.9 H Lymph % (Auto) 4.1 L [place] % (Auto) 2.2 Eos % (Auto) 0.0 Baso % (Auto) 0.4 Lymph # (Auto) 0.2 L [place] # (Auto) 0.1 Eos # (Auto) 0.0 Baso # (Auto) 0.0 Abs Immat Gran (auto) 0.02 Absolute Neuts (auto) 4.7 Absolute Nucleated RBC 0.000 Nucleated RBC % (auto) 0.0 Smear Tech's Comments VERIFIED Whole Blood PT 12.5 Whole Blood INR 1.0 Anion Gap 12 Estim Creat Clear Calc 32.6 Estimated GFR 49 Random Glucose 168 H Lactic Acid 2.4 H* Lactic Acid F/U @ 2Hr Calcium 8.6 D Magnesium 1.9 Total Bilirubin 2.3 H Direct Bilirubin 0.7 H AST 536 H ALT 516 H Alkaline Phosphatase 122 H Ammonia Troponin I High Sens 4.2 Total Protein 6.2 L Albumin 3.4 L Urine Color Urine Appearance Urine pH Ur Specific [place] Urine Protein Urine Glucose (UA) Urine Ketones Urine Blood Urine Nitrite Ur Leukocyte Esterase Urine RBC Urine WBC Ur Squamous Epith Cells Urine Bacteria Hyaline Casts Stool Occult Blood Urine Opiates Screen Ur Buprenorphine Scrn Ur Oxycodone Screen Urine Methadone Screen Urine Fentanyl Screen Ur Barbiturates Screen Ur Phencyclidine Scrn Ur Amphetamines Screen U Benzodiazepines Scrn Urine Cocaine Screen U Marijuana (THC) Screen Ethyl Alcohol < 10 Hepatitis A IgM Ab Hep Bs Antigen Hep Bs Antibody Hep B Core Total Ab Hepatitis C Ab (EIA) Influenza Type A (PCR) Influenza Type B (PCR) RSV RNA Qual (PCR) SARS-CoV-2 RNA (RT-PCR) 07/12/24 07/12/24 07/12/24 03:52 05:52 06:05 MCV MCH MCHC RDW Plt Count MPV Immature Gran % (Auto) Neut % (Auto) Lymph % (Auto) [place] % (Auto) Eos % (Auto) Baso % (Auto) Lymph # (Auto) [place] # (Auto) Eos # (Auto) Baso # (Auto) Abs Immat Gran (auto) Absolute Neuts (auto) Absolute Nucleated RBC Nucleated RBC % (auto) Smear Tech's Comments Whole Blood PT Whole Blood INR Anion Gap Estim Creat Clear Calc Estimated GFR Random Glucose Lactic Acid Lactic Acid F/U @ 2Hr 1.8 Calcium Magnesium Total Bilirubin Direct Bilirubin AST ALT Alkaline Phosphatase Ammonia 37 Troponin I High Sens Total Protein Albumin Urine Color Yellow Urine Appearance Clear Urine pH 6.5 Ur Specific [place] 1.025 Urine Protein 30 (1+) H Urine Glucose (UA) Negative Urine Ketones Negative Urine Blood Moderate (2+) H Urine Nitrite Negative Ur Leukocyte Esterase Negative Urine RBC >20 H Urine WBC 0-5 Ur Squamous Epith Cells 0-2 Urine Bacteria None Seen Hyaline Casts 0-2 Stool Occult Blood Urine Opiates Screen Not Detected Ur Buprenorphine Scrn Not Detected Ur Oxycodone Screen Not Detected Urine Methadone Screen Not Detected Urine Fentanyl Screen Not Detected Ur Barbiturates Screen Not Detected Ur Phencyclidine Scrn Not Detected Ur Amphetamines Screen Not Detected U Benzodiazepines Scrn Not Detected Urine Cocaine Screen Not Detected U Marijuana (THC) Screen Not Detected Ethyl Alcohol Hepatitis A IgM Ab Nonreactive Hep Bs Antigen Negative Hep Bs Antibody NONREACTIVE Hep B Core Total Ab Nonreactive Hepatitis C Ab (EIA) Nonreactive Influenza Type A (PCR) NEGATIVE Influenza Type B (PCR) NEGATIVE RSV RNA Qual (PCR) NEGATIVE SARS-CoV-2 RNA (RT-PCR) NEGATIVE 07/12/24 06:50 MCV MCH MCHC RDW Plt Count MPV Immature Gran % (Auto) Neut % (Auto) Lymph % (Auto) [place] % (Auto) Eos % (Auto) Baso % (Auto) Lymph # (Auto) [place] # (Auto) Eos # (Auto) Baso # (Auto) Abs Immat Gran (auto) Absolute Neuts (auto) Absolute Nucleated RBC Nucleated RBC % (auto) Smear Tech's Comments Whole Blood PT Whole Blood INR Anion Gap Estim Creat Clear Calc Estimated GFR Random Glucose Lactic Acid Lactic Acid F/U @ 2Hr Calcium Magnesium Total Bilirubin Direct Bilirubin AST ALT Alkaline Phosphatase Ammonia Troponin I High Sens Total Protein Albumin Urine Color Urine Appearance Urine pH Ur Specific [place] Urine Protein Urine Glucose (UA) Urine Ketones Urine Blood Urine Nitrite Ur Leukocyte Esterase Urine RBC Urine WBC Ur Squamous Epith Cells Urine Bacteria Hyaline Casts Stool Occult Blood POSITIVE Urine Opiates Screen Ur Buprenorphine Scrn Ur Oxycodone Screen Urine Methadone Screen Urine Fentanyl Screen Ur Barbiturates Screen Ur Phencyclidine Scrn Ur Amphetamines Screen U Benzodiazepines Scrn Urine Cocaine Screen U Marijuana (THC) Screen Ethyl Alcohol Hepatitis A IgM Ab Hep Bs Antigen Hep Bs Antibody Hep B Core Total Ab Hepatitis C Ab (EIA) Influenza Type A (PCR) Influenza Type B (PCR) RSV RNA Qual (PCR) SARS-CoV-2 RNA (RT-PCR) Assessment and Plan (1) SIRS (systemic inflammatory response syndrome): Status: Acute (2) Fever: Status: Acute Plan Pt is an 89-year-old female with a PMH significant for?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 Pt is admitted to the hospital for treatment and further evaluation of acute metabolic encephalopathy in the setting of possible acute cholangitis with sepsis. Acute metabolic encephalopathy in the setting of possible acute cholangitis with sepsis Pt with fever, acute encephalopathy, elevated LFTs, and CT with [id number] intrahepatic biliary dilation and dilation of CBD Pt with a hx of cholecystectomy in 1994 Meets sepsis criteria with fever, tachycardia, and tachypnea; initial lactic acid 2.4 with repeat 1.8, BP stable Pt given IVF and started on broad-spectrum antibiotics in the ED Will treat with Zosyn, started 07/12/2024 We will get MRCP GI consult NPO for possible GI intervention Place on maintenance fluids Trend LFTs Myeloproliferative disorder Continue hydroxyurea HTN BP slightly soft, hold metoprolol and diltiazem for now Resume as warranted Mood disorder Continue hydroxyzine Full Code, verified with pt and at beside Attending:?Dr. Sibley DVT Prophylaxis: Pneumatic compression due to possible GI intervention Pt will require a hospitalization of at least two nights for treatment of?acute metabolic encephalopathy in the setting of possible acute cholangitis with sepsis. Pt will require hospital level care for additional imaging with MRCP as well as GI consult and empiric IV antibiotic coverage. Quality Stroke Does the patient have a stroke diagnosis?: No VTE Prior VTE?: No VTE Risk Level:: Medical - moderate - high VTE Device Contraindication: N/A - Device Ordered VTE Drug Contraindication: Treatment Not Indicated
--- NOTE | 2024-07-12 08:45 | PC.NURSE ---
89 F presents to ED with confusion, stroke rule out. Stroke negative. A+Ox1-2 to self and year but confused to location and situation. Switched to RA from 2L NC and tolerating well, no pain or complaints at this time. Pt has increased weakness ambulating per at bedside.
--- NOTE | 2024-07-12 08:47 | PHA.MEDREC ---
Addendum entered by Bari Díaz RPh 07/12/24 08:58: MED REC WAS REVIEWED BY [facility]. Original Note: Pharmacy Consult ? Medication Reconciliation Pharmacy has completed the medication reconciliation. Spoke to patient to confirm med list. Patient was slow at answering questions, however she could name all her medication. Patient states she is no longer taking Estradiol 0.01% cream, and Psyllium husk 0.4 grams. Patient confirmed she takes Diltiazem 120 mg daily. She is not taking Diltiazem 180, even though there are recent claims. Patient says her doctor sent in the wrong strength, Metoprolol Succ 50 mg ( 1/2 of 100 mg).
--- NOTE | 2024-07-12 09:34 | PC.NURSE ---
Thalia Bloom the daughter number is
--- NOTE | 2024-07-12 11:41 | PC.NURSE ---
still waiting for pharmacy to bring up the hydrea
--- NOTE | 2024-07-12 11:58 | P.CNGI_ITS ---
History of Present Illness Data of Consult Service Date: 07/12/24 Requesting physician: Aurea Salguero Primary Care Provider: Unknown Physician HPI Reason for consult: Elevated LFTs This is an 89-year-old female with past medical history of myeloproliferative disorder on hydroxyurea, hypertension, high cholesterol, who presented to the hospital from home for confusion and altered mental status. History obtained from the patient as well as her at bedside. He reports patient was doing well yesterday morning, even had a doctor's visit, and in the afternoon became progressively and coherent. Was not acting like herself. Patient herself does not report any abdominal pain, but does note pale stools for the past 2 days. Last intake was yesterday afternoon. She does not take any blood thinners or NSAIDs. Reports history of cholecystectomy almost 20 years ago. Outpatient GI used to be Dr. Cadena. She was brought to the emergency room and was found to be febrile with T-max of 103.4. Initially tachycardic. Blood work significant for neutrophilic shift, lactic acidosis of 2.4, hyponatremia and elevated LFTs with total bilirubin of 2.3 and elevated transaminases in the 500s. Hepatitis serology negative. CT abdomen and pelvis shows significant intra and extrahepatic bile duct dilatation. 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 Review of Systems 2 Review of Systems: Yes all other systems are reviewed and are negative [facility] Past Medical History Medical History High cholesterol Hypertension Restless legs Arthritis Surgical History Surgical History History of lumbar fusion Social History Social History Patient Tobacco Use Status: Never used Tobacco Smoked in Last 30 Days: No Use of substances other than those prescribed or required for medical reasons: No Advance Directives: No Advance Directives Information Provided: Yes Meds Allergies Allergy/AdvReac Type Severity Reaction Status Date / Time perfume Allergy Unknown UNKNOWN Verified 07/12/24 03:16 [email or web address] [From Myrbetriq] AdvReac Intermediate Nausea Verified 07/12/24 03:16 Active Medications: Current Medications Acetaminophen (Acetaminophen 325 Mg Tablet) 650 mg PO Q6H PRN PRN Reason: Pain, Mild 1-3,fever,headache Aspirin (Aspirin Enteric Coated 81 Mg Tablet.) 81 mg PO DAILY [facility] Calcium Carbonate (Calcium Carbonate 750 Mg Tab.Chew) 750 mg PO Q4H PRN PRN Reason: Heartburn Duloxetine HCl (Duloxetine Hcl 20 Mg Capsule.) 20 mg PO BID [facility] Hydroxyurea (Hydroxyurea 500 Mg Capsule) 500 mg PO DAILY [facility] Hydroxyzine HCl (Hydroxyzine Hcl 25 Mg Tablet) 25 mg PO TID PRN PRN Reason: Anxiety Sodium Chloride (Ns) 1,000 mls @ 80 mls/hr IVCONT .[id number] [facility] Piperacillin Sod/Tazobactam (Sod 4.5 gm/ Sodium Chloride) 100 mls @ 200 mls/hr IV Q8H [facility] Magnesium Hydroxide (Milk Of Magnesia 30 Ml Oral.Susp) 30 ml PO DAILY PRN PRN Reason: Constipation Melatonin (Melatonin 3 Mg Tablet) 6 mg PO BEDTIME PRN PRN Reason: Insomnia Ondansetron HCl (Ondansetron Hcl 4 Mg/2 Ml Vial) 4 mg IVPUSH Q8H PRN PRN Reason: Nausea and Vomiting Sodium Chloride (0.9 % Sodium Chloride Flush 3 Ml Syringe) 3 ml IVFLUSH QSHIFT [facility] Home Medications ?Medication ?Instructions ?Recorded ?Confirmed ?Last Taken ?Type diltiazem HCl 120 mg 120 mg PO DAILY 08/17/23 07/12/24 07/11/24 History capsule,extended release 12 hr vitamins A,C,K-oijv-qjluxc 4,296 1 cap PO BID 08/17/23 07/12/24 07/11/24 History mcg-226 mg-90 mg capsule (PreserVision AREDS) aspirin 81 mg tablet,delayed 81 mg PO DAILY 01/16/24 07/12/24 07/11/24 History release duloxetine 20 mg capsule,delayed 20 mg PO BID 07/12/24 07/12/24 07/11/24 History release hydroxyurea 500 mg capsule 500 mg PO DAILY 07/12/24 07/12/24 07/11/24 History hydroxyzine pamoate 25 mg capsule 25 mg PO TID PRN Anxiety 07/12/24 07/12/24 07/11/24 History metoprolol succinate 100 mg 50 mg PO DAILY 07/12/24 07/12/24 07/11/24 History tablet,extended release 24 hr Physical Exam 2 Vital Signs: Vital Signs: Last Vital Signs Temp 101.2 F H 07/12/24 07:23 Pulse 78 07/12/24 10:39 Resp 20 07/12/24 10:39 BP 108/50 L 07/12/24 10:39 Pulse Ox 95 07/12/24 10:39 O2 Del Method Room Air 07/12/24 10:39 O2 Flow Rate 2 07/12/24 06:19 BMI result Body Mass Index 24.8 Elderly female Able to provide most of the history Mildly icteric No overt respiratory distress Abdomen soft, nontender, nondistended, no guarding No lower extremity edema Alert and oriented x3, able to follow all commands appropriately Results Labs 07/12/24 03:24 07/12/24 03:24 Labs: Short CBC 07/12/24 Range/Units 03:24 WBC 5.1 (4.8-10.8) X10*3/uL Hgb 10.5 L (12.0-16.0) g/dl Hct 30.0 L (37.0-47.0) % Plt Count 219 (160-400) X10*3/uL BMP 07/12/24 03:24 Sodium 129 L Potassium 5.3 H D Chloride 101 Carbon Dioxide 21 L BUN 16 Creatinine 1.05 Calcium 8.6 D Liver Function 07/12/24 Range/Units 03:24 Total Bilirubin 2.3 H (0.0-1.0) mg/dL Direct Bilirubin 0.7 H (0.0-0.5) mg/dL AST 536 H (5-31) U/L ALT 516 H (0-31) U/L Alkaline Phosphatase 122 H (39-117) U/L Albumin 3.4 L (3.5-5.0) g/dL Urine 07/12/24 Range/Units 03:52 Urine Color Yellow Urine Appearance Clear Urine pH 6.5 (5.0-9.0) Ur Specific [place] 1.025 (1.005-1.025) Urine Protein 30 (1+) H (Neg-Trace) mg/dL Urine Glucose (UA) Negative (Negative) mg/dL Assessment and Plan (1) Sepsis: Status: Acute (2) Ascending cholangitis: Status: Acute (3) Elevated LFTs: Status: Acute (4) Fever: Status: Acute Plan Patient presented with altered mental status, fever, and jaundice with significant ductal dilation on non-con CT highly suspicious for ascending cholangitis likely secondary to CBD stone/sludge versus stricture. Recommendations: -IV fluids resuscitation as per sepsis protocol -zosyn for gram negative coverage -follow blood Cx results -please keep strict NPO -will arrange for urgent ERCP for source control and biliary drainage +/- clearance - scheduled with the good Dr. Luque Plan reviewed in detail with the patient and her who are in agreement to proceed. Thank you for allowing me to participate in her care. Please do not hesitate to reach out for any questions or concerns. Procedures Date of Service Date of Service: 07/12/24
[2024-07-12] MEDS: Hydroxyurea 500 MG CAPSULE PO (12:08)
[2024-07-12] MEDS: 0.9 % Sodium Chloride 1,000 ML 80 ML IVCONT ×2 (12:09→20:11)
[2024-07-12] MEDS: Piperacillin Sodium/Tazobactam 4.5 GM in 0.9 % Sodium Chloride 100 ML IV ×2 (12:17→20:10)
[2024-07-12 12:24] LABS: Glucose, Whole Blood 176 mg/dL (60-115)
--- NOTE | 2024-07-12 12:29 | PC.NURSE ---
report given to short stay surgery and pt of to surgery
--- NOTE | 2024-07-12 12:43 | PC.NURSE ---
18g right ac-no leaking asymptomatic. 22 left ac not flushing. removed
--- NOTE | 2024-07-12 12:50 | MHC.SHP ---
Pre-Procedural Eval Section A - 24 Hr Update-Section A only Date of Service: 07/12/24 The patient is an INPATIENT: Yes The patient has been examined within 24 hours of the surgical procedure. The History & Physical has been completed within 30 days and I have reviewed it.: Yes Section B - Complete if H&P > 30 days Chief Complaint: Sepsis Allergies: Allergies Allergy/AdvReac Type Severity Reaction Status Date / Time perfume Allergy Unknown UNKNOWN Verified 07/12/24 03:16 [email or web address] [From Myrbetriq] AdvReac Intermediate Nausea Verified 07/12/24 03:16 Plan Diagnosis/Plan: Unchanged I have reviewed the history and physical and performed a pertinent physical examination on my patient. No changes have occurred unless specified. ERCP for cholangitis Time Spent With Patient Time: Total time managing care of this patient today ____ minutes.
--- NOTE | 2024-07-12 12:59 | P.CONAN_ITS ---
[facility] Active Problems Active Problems: All Active Problems Elevated LFTs (Acute) Sepsis (Acute) Fever (Acute) SIRS (systemic inflammatory response syndrome) (Acute) Ascending cholangitis (Acute) GI bleed (Acute) Anemia (Acute) Acute hyponatremia (Acute) Encephalopathy (Acute) Post laminectomy syndrome (Acute) Peripheral neuropathy (Acute) Spinal stenosis (Acute) Neurogenic claudication due to lumbar spinal stenosis (Acute) Past Medical History Medical History FHx: cholecystectomy Cataracts, bilateral FH: bilateral hip replacements High cholesterol Hypertension Restless legs Arthritis Functional capacity: independent ambulation Family History Family history of problems with anesthesia: No Surgical History Surgical History History of appendectomy H/O: hysterectomy History of lumbar fusion History of Problems with Anesthesia: No Social History Social History Patient Tobacco Use Status: Never used Tobacco Smoked in Last 30 Days: No Use of substances other than those prescribed or required for medical reasons: No Are you DNR?: No Advance Directives: No Advance Directives Information Provided: Yes Patient : No : No Poor oral hygiene: No Meds Allergies Allergy/AdvReac Type Severity Reaction Status Date / Time perfume Allergy Unknown UNKNOWN Verified 07/12/24 03:16 [email or web address] [From Myrbetriq] AdvReac Intermediate Nausea Verified 07/12/24 03:16 Active Medications: Current Medications Acetaminophen (Acetaminophen 325 Mg Tablet) 650 mg PO Q6H PRN PRN Reason: Pain, Mild 1-3,fever,headache Aspirin (Aspirin Enteric Coated 81 Mg Tablet.) 81 mg PO DAILY [facility] Calcium Carbonate (Calcium Carbonate 750 Mg Tab.Chew) 750 mg PO Q4H PRN PRN Reason: Heartburn Duloxetine HCl (Duloxetine Hcl 20 Mg Capsule.) 20 mg PO BID [facility] Hydroxyurea (Hydroxyurea 500 Mg Capsule) 500 mg PO DAILY [facility] Last Admin: 07/12/24 12:08 Dose: 500 mg Hydroxyzine HCl (Hydroxyzine Hcl 25 Mg Tablet) 25 mg PO TID PRN PRN Reason: Anxiety Sodium Chloride (Ns) 1,000 mls @ 80 mls/hr IVCONT .[id number] [facility] Last Admin: 07/12/24 12:09 Dose: 80 mls/hr Piperacillin Sod/Tazobactam (Sod 4.5 gm/ Sodium Chloride) 100 mls @ 200 mls/hr IV Q8H [facility] Last Admin: 07/12/24 12:17 Dose: 200 mls/hr Magnesium Hydroxide (Milk Of Magnesia 30 Ml Oral.Susp) 30 ml PO DAILY PRN PRN Reason: Constipation Melatonin (Melatonin 3 Mg Tablet) 6 mg PO BEDTIME PRN PRN Reason: Insomnia Ondansetron HCl (Ondansetron Hcl 4 Mg/2 Ml Vial) 4 mg IVPUSH Q8H PRN PRN Reason: Nausea and Vomiting Sodium Chloride (0.9 % Sodium Chloride Flush 3 Ml Syringe) 3 ml IVFLUSH QSHIFT [facility] Home Medications ?Medication ?Instructions ?Recorded ?Confirmed ?Last Taken ?Type diltiazem HCl 120 mg 120 mg PO DAILY 08/17/23 07/12/24 07/11/24 History capsule,extended release 12 hr vitamins A,C,F-cgtl-vijbhj 4,296 1 cap PO BID 08/17/23 07/12/24 07/11/24 History mcg-226 mg-90 mg capsule (PreserVision AREDS) aspirin 81 mg tablet,delayed 81 mg PO DAILY 01/16/24 07/12/24 07/11/24 History release duloxetine 20 mg capsule,delayed 20 mg PO BID 07/12/24 07/12/24 07/11/24 History release hydroxyurea 500 mg capsule 500 mg PO DAILY 07/12/24 07/12/24 07/11/24 History hydroxyzine pamoate 25 mg capsule 25 mg PO TID PRN Anxiety 07/12/24 07/12/24 07/11/24 History metoprolol succinate 100 mg 50 mg PO DAILY 07/12/24 07/12/24 07/11/24 History tablet,extended release 24 hr Exam Exam Date and Time: 12 July 2024 Height,Weight and Vital Signs: Height 5 ft 3 in Weight 63.503 kg Last Vital Signs Temp 98.8 F 07/12/24 12:34 Pulse 80 07/12/24 12:34 Resp 16 07/12/24 12:34 BP 116/51 L 07/12/24 12:34 Pulse Ox 98 06/05/25 12:34 O2 Del Method Room Air 07/12/24 12:34 O2 Flow Rate 2 07/12/24 06:19 Pertinent Lab Results Pertinent Lab Results: Laboratory Tests 07/12/24 07/12/24 07/12/24 02:55 03:06 03:24 WBC 5.1 RBC 2.78 L Hgb 10.5 L Hct 30.0 L MCV 107.9 H MCH 37.8 H MCHC 35.0 RDW 13.4 Plt Count 219 MPV 9.6 Immature Gran % (Auto) 0.4 Neut % (Auto) 92.9 H Lymph % (Auto) 4.1 L Shannon % (Auto) 2.2 Eos % (Auto) 0.0 Baso % (Auto) 0.4 Lymph # (Auto) 0.2 L Shannon # (Auto) 0.1 Eos # (Auto) 0.0 Baso # (Auto) 0.0 Abs Immat Gran (auto) 0.02 Absolute Neuts (auto) 4.7 Absolute Nucleated RBC 0.000 Nucleated RBC % (auto) 0.0 Smear Tech's Comments VERIFIED Whole Blood PT 12.5 Whole Blood INR 1.0 Sodium 129 L Potassium 5.3 H D Chloride 101 Carbon Dioxide 21 L Anion Gap 12 BUN 16 Creatinine 1.05 Estim Creat Clear Calc 32.6 Estimated GFR 49 POC Glucose 176 H Random Glucose 168 H Lactic Acid Lactic Acid F/U @ 2Hr Calcium 8.6 D Magnesium 1.9 Total Bilirubin 2.3 H Direct Bilirubin 0.7 H AST 536 H ALT 516 H Alkaline Phosphatase 122 H Ammonia Troponin I High Sens 4.2 Total Protein 6.2 L Albumin 3.4 L Urine Color Urine Appearance Urine pH Ur Specific Steele Urine Protein Urine Glucose (UA) Urine Ketones Urine Blood Urine Nitrite Ur Leukocyte Esterase Urine RBC Urine WBC Ur Squamous Epith Cells Urine Bacteria Hyaline Casts Stool Occult Blood Salicylates Urine Opiates Screen Ur Buprenorphine Scrn Ur Oxycodone Screen Urine Methadone Screen Urine Fentanyl Screen Acetaminophen Ur Barbiturates Screen Ur Phencyclidine Scrn Ur Amphetamines Screen U Benzodiazepines Scrn Urine Cocaine Screen U Marijuana (THC) Screen Ethyl Alcohol < 10 Hepatitis A IgM Ab Hep Bs Antigen Hep Bs Antibody Hep B Core Total Ab Hepatitis C Ab (EIA) Influenza Type A (PCR) Influenza Type B (PCR) RSV RNA Qual (PCR) SARS-CoV-2 RNA (RT-PCR) 07/12/24 07/12/24 07/12/24 03:49 03:52 05:52 WBC RBC Hgb Hct MCV MCH MCHC RDW Plt Count MPV Immature Gran % (Auto) Neut % (Auto) Lymph % (Auto) Shannon % (Auto) Eos % (Auto) Baso % (Auto) Lymph # (Auto) Shannon # (Auto) Eos # (Auto) Baso # (Auto) Abs Immat Gran (auto) Absolute Neuts (auto) Absolute Nucleated RBC Nucleated RBC % (auto) Smear Tech's Comments Whole Blood PT Whole Blood INR Sodium Potassium Chloride Carbon Dioxide Anion Gap BUN Creatinine Estim Creat Clear Calc Estimated GFR POC Glucose Random Glucose Lactic Acid 2.4 H* Lactic Acid F/U @ 2Hr Calcium Magnesium Total Bilirubin Direct Bilirubin AST ALT Alkaline Phosphatase Ammonia 37 Troponin I High Sens Total Protein Albumin Urine Color Yellow Urine Appearance Clear Urine pH 6.5 Ur Specific Steele 1.025 Urine Protein 30 (1+) H Urine Glucose (UA) Negative Urine Ketones Negative Urine Blood Moderate (2+) H Urine Nitrite Negative Ur Leukocyte Esterase Negative Urine RBC >20 H Urine WBC 0-5 Ur Squamous Epith Cells 0-2 Urine Bacteria None Seen Hyaline Casts 0-2 Stool Occult Blood Salicylates Urine Opiates Screen Not Detected Ur Buprenorphine Scrn Not Detected Ur Oxycodone Screen Not Detected Urine Methadone Screen Not Detected Urine Fentanyl Screen Not Detected Acetaminophen Ur Barbiturates Screen Not Detected Ur Phencyclidine Scrn Not Detected Ur Amphetamines Screen Not Detected U Benzodiazepines Scrn Not Detected Urine Cocaine Screen Not Detected U Marijuana (THC) Screen Not Detected Ethyl Alcohol Hepatitis A IgM Ab Nonreactive Hep Bs Antigen Negative Hep Bs Antibody NONREACTIVE Hep B Core Total Ab Nonreactive Hepatitis C Ab (EIA) Nonreactive Influenza Type A (PCR) NEGATIVE Influenza Type B (PCR) NEGATIVE RSV RNA Qual (PCR) NEGATIVE SARS-CoV-2 RNA (RT-PCR) NEGATIVE 07/12/24 07/12/24 07/12/24 06:05 06:50 07:41 WBC RBC Hgb Hct MCV MCH MCHC RDW Plt Count MPV Immature Gran % (Auto) Neut % (Auto) Lymph % (Auto) Shannon % (Auto) Eos % (Auto) Baso % (Auto) Lymph # (Auto) Shannon # (Auto) Eos # (Auto) Baso # (Auto) Abs Immat Gran (auto) Absolute Neuts (auto) Absolute Nucleated RBC Nucleated RBC % (auto) Smear Tech's Comments Whole Blood PT Whole Blood INR Sodium Potassium Chloride Carbon Dioxide Anion Gap BUN Creatinine Estim Creat Clear Calc Estimated GFR POC Glucose Random Glucose Lactic Acid Lactic Acid F/U @ 2Hr 1.8 Calcium Magnesium Total Bilirubin Direct Bilirubin AST ALT Alkaline Phosphatase Ammonia Troponin I High Sens Total Protein Albumin Urine Color Urine Appearance Urine pH Ur Specific Steele Urine Protein Urine Glucose (UA) Urine Ketones Urine Blood Urine Nitrite Ur Leukocyte Esterase Urine RBC Urine WBC Ur Squamous Epith Cells Urine Bacteria Hyaline Casts Stool Occult Blood POSITIVE Salicylates < 5.0 L Urine Opiates Screen Ur Buprenorphine Scrn Ur Oxycodone Screen Urine Methadone Screen Urine Fentanyl Screen Acetaminophen 9 Ur Barbiturates Screen Ur Phencyclidine Scrn Ur Amphetamines Screen U Benzodiazepines Scrn Urine Cocaine Screen U Marijuana (THC) Screen Ethyl Alcohol Hepatitis A IgM Ab Hep Bs Antigen Hep Bs Antibody Hep B Core Total Ab Hepatitis C Ab (EIA) Influenza Type A (PCR) Influenza Type B (PCR) RSV RNA Qual (PCR) SARS-CoV-2 RNA (RT-PCR) Airway Mallampati Class: III Loose/Missing/Broken Teeth: No Heart: rrr Lungs: cta Assessment and Plan Assessment Anesthesia Assessment: Anesthesia Plan Discussed and Chart Reviewed Final Anesthetic Review Family History of Problems with Anesthesia: No History of Problems with Anesthesia: No NPO: Yes ASA Class: IV Final Preanesthetic Review: No Changes in Pt Med Stat, Meds/Allgs Chart Reviewed, Consent Obtained/Reviewed and Anes Risks/Benef Reviewed Patient Risk: Intermediate Procedure Risk: Low Anesthetic Plan Anesthetic Plan: MAC: Disposition: Standard PACU
--- NOTE | 2024-07-12 14:08 | W.PM.OPN ---
Operative Note Operative Note Date of Service: 07/12/24 Narrative: Description:?Endoscopic retrograde cholangiopancreatography (ERCP) and upper endoscopy PROCEDURE:?Endoscopic retrograde cholangiopancreatography and upper endoscopy INDICATION FOR THE PROCEDURE:?Patient with a history of elevated LFT and sepsis, concern for cholangitis. MEDICATIONS:?General anesthesia. The risks of the procedure were made aware to the patient and consisted of medication reaction, bleeding, perforation, aspiration, and post ERCP pancreatitis. DESCRIPTION OF PROCEDURE:?After informed consent and appropriate sedation, the upper endoscope was passed first to check the anatomy given history of myeloproliferative disorder. No masses or ulcers, strictures were noted. This scope was then withdrawn The duodenoscope was then inserted into the oropharynx, down the esophagus, and into the stomach. The scope was then advanced through the pylorus to the ampulla. The CBD was selectively cannulated with wire guided approach and a cholangiogram was obtained. The cholangiogram was formally interpreted and documented, and confirmed placement without any obvious filling defect noted but the CBD was dilated to about 10 mm. A sphincterotomy was performed to facilitate stone removal, ductal clearance and enlarge the orifice beyond standard cannulation. After this a extraction balloon was swept several times across the duct and dark colored bile was flowing freely but no stones or debris were noted. A basket was also used but again no stone material. Completion balloon occluded cholangiography demonstrated no filling defects. Intraop cholangiogram reivew and interpretation by performing physician: Dilated CBD, CBD measured about 10 mm. No stricture, debris, stones or leak seen. FINDINGS: 1. dilated CBD, dark colored bile suggestive of recent obstruction, may have passed a stone RECOMMENDATIONS: 1. clears and then advance diet as tolerated
--- NOTE | 2024-07-12 16:58 | PC.NURSE ---
pt is still in short stay surgery
[2024-07-12] MEDS: 0.9 % Sodium Chloride Flush 3 ML SYRINGE IVFLUSH ×2 (17:52→20:11)
[2024-07-12] MEDS: DULoxetine HCl 20 MG CAPSULE.DR PO (20:11)
[2024-07-12] MEDS: Acetaminophen 325 MG TABLET 650 MG PO (20:18)
[2024-07-13 03:32] VITALS: BP 130/61; PULSE 95; RESP 16; TEMP 36.8; O2SAT 93
[2024-07-13] MEDS: Piperacillin Sodium/Tazobactam 4.5 GM in 0.9 % Sodium Chloride 100 ML IV ×3 (03:52→20:56)
[2024-07-13] MEDS: Milk of Magnesia 30 ML ORAL.SUSP PO (06:11)
[2024-07-13 06:36] LABS: Hematocrit 32.2 % (37.0-47.0); Hemoglobin 10.5 g/dl (12.0-16.0); Mean Corpuscular HGB Conc 32.6 g/dl (31.0-35.0); Mean Corpuscular Hemoglobin 36.7 pg (27.0-33.0); Mean Platelet Volume 10.1 fL (9.4-12.3); Platelet Count 221 X10*3/uL (160-400); Red Blood Count 2.86 X10*6/uL (4.20-5.50); Red Cell Distribution Width 13.7 % (11.0-16.0); White Blood Count 5.9 X10*3/uL (4.8-10.8)
[2024-07-13 06:38] LABS: Mean Corpuscular Volume 112.6 fL (80.0-98.0)
[2024-07-13 06:41] LABS: Alanine Aminotransferase 337 U/L (0-31); Albumin Level 3.1 g/dL (3.5-5.0); Alkaline Phosphatase 125 U/L (39-117); Anion Gap 9 (12-20); Aspartate Amino Transferase 167 U/L (5-31); Blood Urea Nitrogen 12 mg/dL (9-16); Calcium 8.9 mg/dL (8.4-10.2); Carbon Dioxide 27 mmol/L (22-29); Chloride 110 mmol/L (96-108); Creatinine Clr Calc Pharmacy 30.9; Estimated Glomerular Filt Rate 51; Glucose Random 117 mg/dL (60-115); Potassium 3.8 mmol/L (3.3-5.1); Sodium 142 mmol/L (135-145); Total Protein 5.5 g/dL (6.5-8.0)
[2024-07-13 08:00] VITALS: BP 155/65; PULSE 101; RESP 16; TEMP 37.1; O2SAT 97
[2024-07-13] MEDS: Aspirin Enteric Coated 81 MG TABLET.DR PO (08:28)
[2024-07-13] MEDS: 0.9 % Sodium Chloride Flush 3 ML SYRINGE IVFLUSH ×3 (08:29→20:56)
[2024-07-13] MEDS: DULoxetine HCl 20 MG CAPSULE.DR PO ×2 (08:29→20:56)
[2024-07-13] MEDS: Hydroxyurea 500 MG CAPSULE PO (08:29)
--- NOTE | 2024-07-13 08:29 | HO.POSTANES ---
Post Anesthesia Evaluation Post Anesthesia Evaluation Date of Service: 07/13/24 Vital Signs: Vital Signs Temp Pulse Resp BP Pulse Ox O2 Del Method 07/13/24 08:00 98.8 F 101 H 16 155/65 H 97 Room Air 07/13/24 03:32 98.3 F 95 16 130/61 93 Room Air Anesthesia: General Endotracheal-GETA Mental Status: Awake Pain Control: Satisfactory Nausea/Vomiting: None Hydration: Adequate Anesthesia-Related Issues: No Anes. Related Issues
--- NOTE | 2024-07-13 09:38 | HO.PM.IMPN ---
Subjective Subjective Date of Service: 07/13/24 Interval History: feeling better Physical Exam Vital Signs: Vital Signs: Last Vital Signs Temp 98.8 F 07/13/24 08:00 Pulse 101 H 07/13/24 08:00 Resp 16 07/13/24 08:00 BP 155/65 H 07/13/24 08:00 Pulse Ox 97 07/13/24 08:00 O2 Del Method Room Air 07/13/24 08:00 O2 Flow Rate 2 07/12/24 17:14 BMI result Body Mass Index 22.5 General: AO X 3, no acute distress Resp: CTA bilateral, no accessory muscles used CVS: S1,S2,RRR GI: soft, non tender, non distended Neuro: motor grossly intact, alert Psych: appropriate affect, appropriate insight Objective Data Active Medications Acetaminophen (Acetaminophen 325 Mg Tablet) 650 mg PO Q6H PRN PRN Reason: Pain, Mild 1-3,fever,headache Last Admin: 07/12/24 20:18 Dose: 650 mg Documented By: CHANA Aspirin (Aspirin Enteric Coated 81 Mg Tablet.) 81 mg PO DAILY [facility] Last Admin: 07/13/24 08:28 Dose: 81 mg Documented By: LOU Calcium Carbonate (Calcium Carbonate 750 Mg Tab.Chew) 750 mg PO Q4H PRN PRN Reason: Heartburn Duloxetine HCl (Duloxetine Hcl 20 Mg Capsule.) 20 mg PO BID [facility] Last Admin: 07/13/24 08:29 Dose: 20 mg Documented By: LOU Hydroxyurea (Hydroxyurea 500 Mg Capsule) 500 mg PO DAILY [facility] Last Admin: 07/13/24 08:29 Dose: 500 mg Documented By: LOU Hydroxyzine HCl (Hydroxyzine Hcl 25 Mg Tablet) 25 mg PO TID PRN PRN Reason: Anxiety Sodium Chloride (Ns) 1,000 mls @ 80 mls/hr IVCONT .[id number] [facility] Last Infusion: 07/13/24 07:47 Dose: 0 mls/hr Documented By: JORJE Piperacillin Sod/Tazobactam (Sod 4.5 gm/ Sodium Chloride) 100 mls @ 200 mls/hr IV Q8H [facility] Last Infusion: 07/13/24 04:30 Dose: Infused Documented By: CHANA Lactated Ringer's (Lr) 500 mls @ 20 mls/hr IVCONT .Q24H [facility] Last Admin: 07/12/24 18:18 Dose: Not Given Documented By: JORJE Non-Admin Reason: PACU Transfer Magnesium Hydroxide (Milk Of Magnesia 30 Ml Oral.Susp) 30 ml PO DAILY PRN PRN Reason: Constipation Last Admin: 07/13/24 06:11 Dose: 30 ml Documented By: CHANA Melatonin (Melatonin 3 Mg Tablet) 6 mg PO BEDTIME PRN PRN Reason: Insomnia Naloxone HCl (Naloxone Hcl 0.4 Mg/Ml Vial) 0.04 mg IVPUSH Q5M PRN PRN Reason: Excessive sedation or RR < 8 Ondansetron HCl (Ondansetron Hcl 4 Mg/2 Ml Vial) 4 mg IVPUSH Q8H PRN PRN Reason: Nausea and Vomiting Sodium Chloride (0.9 % Sodium Chloride Flush 3 Ml Syringe) 3 ml IVFLUSH QSHIFT [facility] Last Admin: 07/13/24 08:29 Dose: 3 ml Documented By: BASIMKLEIC Labs 07/13/24 05:26 07/13/24 05:26 Labs: Laboratory Results - last 24 hr 07/12/24 07/13/24 02:55 05:26 MCV 112.6 H MCH 36.7 H MCHC 32.6 RDW 13.7 Plt Count 221 MPV 10.1 Absolute Nucleated RBC 0.000 Nucleated RBC % (auto) 0.0 Anion Gap 9 L Estim Creat Clear Calc 30.9 Estimated GFR 51 POC Glucose 176 H Random Glucose 117 H Calcium 8.9 Total Bilirubin 3.0 H AST 167 H ALT 337 H Alkaline Phosphatase 125 H Total Protein 5.5 L Albumin 3.1 L Microbiology Microbiology Results: Microbiology 07/12/24 03:49 Blood Culture - Preliminary Blood - Venous No growth after 24 hours. 07/12/24 03:49 Blood Culture - Preliminary Blood - Venous No growth after 24 hours. Assessment and Plan (1) Elevated LFTs: Status: Acute Plan 89F PMH myeloproliferative disease, htn, presented with ams acute metabolic encephalopathy due to sepsis from presumed acute cholangitis s/p ERCP 07/12/24 contineu zosyn, follow up cultures moinotr lfts myeloproliferative disorder hydrea htn metoprolol, cardizem DVT prophylaxis-mechanical due to recent ERCP Full code reason for continued hospitalization: Cultures Quality Stroke Does the patient have a stroke diagnosis?: No VTE Prior VTE?: No VTE Risk Level:: Medical - moderate - high VTE Device Contraindication: N/A - Device Ordered VTE Drug Contraindication: Treatment Not Indicated
--- NOTE | 2024-07-13 11:32 | P.CDIM_ITS ---
PROVIDER RESPONSE TEXT: To clarify, the appropriate diagnosis supported by the clinical indicators: Acute QUERY TEXT: PHYSICIAN'S DOCUMENTATION REQUEST Date of Query: 07/13/2024 11:20 AM EDT Patient Name: ALEXA HOBSON Admit Date: 07/12/2024 Dear Osvaldo Gibbons MD, A review of the medical record indicates additional documentation may be needed. Please review below and update the documentation accordingly. Clinical Indicators: GI consultation note dated 07/12/24 - Blood work significant for neutrophilic shift, lactic acidosis of 2.4. Fluids Clarify which of the following accurately represents the acuity of the Lactic acidosis: Possible options might include: Acute Chronic Other specified Other (explain) Clinically unable to determine (explain) Thank you, Ning Clement, CCS, CDIS Use of terms such as suspected, likely, concern for, or probable (associated with a specific diagnosi s that is being evaluated, monitored, or treated as if it exists) are acceptable and can be coded in the inpatient se tting, when documented at the time of discharge. Please use your independent medical judgment in providing your response. THIS QUERY IS PART OF THE PERMANENT MEDICAL RECORD
--- NOTE | 2024-07-13 14:31 | MHC.CM.PN ---
IMM delivered. Patient lives at home w/ . Functionally independent. Has hearing aids. No services. PCP Wenceslao Aquino MD Reports HCP is her , Gil. Copy requested. DP: Home self care vs home w/ new [facility] (no preference to agency). to transport. CM will continue to follow.
[2024-07-13 15:50] VITALS: BP 126/78; PULSE 89; RESP 18; TEMP 37.2; O2SAT 92
[2024-07-13 19:25] VITALS: BP 143/82; PULSE 112; RESP 18; TEMP 37.2; O2SAT 96
[2024-07-14] MEDS: Acetaminophen 325 MG TABLET 650 MG PO (01:02)
[2024-07-14 04:00] VITALS: BP 134/87; PULSE 74; TEMP 36.3; O2SAT 96
[2024-07-14] MEDS: Piperacillin Sodium/Tazobactam 4.5 GM in 0.9 % Sodium Chloride 100 ML IV ×2 (05:11→11:34)
[2024-07-14 06:56] VITALS: BP 128/56; PULSE 90; RESP 16; TEMP 36.8; O2SAT 94
[2024-07-14 08:01] LABS: Hematocrit 30.6 % (37.0-47.0); Hemoglobin 10.2 g/dl (12.0-16.0); Mean Corpuscular HGB Conc 33.3 g/dl (31.0-35.0); Mean Corpuscular Hemoglobin 36.8 pg (27.0-33.0); Mean Platelet Volume 9.7 fL (9.4-12.3); Platelet Count 214 X10*3/uL (160-400); Red Blood Count 2.77 X10*6/uL (4.20-5.50); Red Cell Distribution Width 13.3 % (11.0-16.0); White Blood Count 4.1 X10*3/uL (4.8-10.8)
[2024-07-14 08:06] LABS: INTERNATIONAL NORM RATIO 1.1 (0.9-1.1); Prothrombin Time 12.4 SEC (10.9-12.4)
[2024-07-14 08:13] LABS: Mean Corpuscular Volume 110.5 fL (80.0-98.0)
[2024-07-14 08:21] LABS: Alanine Aminotransferase 306 U/L (0-31); Albumin Level 3.2 g/dL (3.5-5.0); Alkaline Phosphatase 135 U/L (39-117); Anion Gap 9 (12-20); Aspartate Amino Transferase 158 U/L (5-31); Bilirubin Total 2.7 mg/dL (0.0-1.0); Blood Urea Nitrogen 9 mg/dL (9-16); Calcium 8.9 mg/dL (8.4-10.2); Carbon Dioxide 25 mmol/L (22-29); Chloride 108 mmol/L (96-108); Estimated Glomerular Filt Rate 59; Glucose Random 112 mg/dL (60-115); Magnesium 2.1 mg/dL (1.6-2.6); Potassium 3.2 mmol/L (3.3-5.1); Sodium 139 mmol/L (135-145); Total Protein 5.9 g/dL (6.5-8.0)
[2024-07-14] MEDS: Aspirin Enteric Coated 81 MG TABLET.DR PO (08:48)
[2024-07-14] MEDS: Metoprolol Succinate ER 50 MG TAB.ER.24H PO (08:48)
[2024-07-14] MEDS: dilTIAZem HCL CD 120 MG CAP.ER.DEG PO (08:49)
[2024-07-14] MEDS: DULoxetine HCl 20 MG CAPSULE.DR PO (08:49)
[2024-07-14] MEDS: 0.9 % Sodium Chloride Flush 3 ML SYRINGE IVFLUSH (08:51)
--- NOTE | 2024-07-14 10:51 | PM.DS ---
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 Pt is awake and alert and oriented x3, though reports he is unclear about events leading up to hospital presentation. HPI is thus supplemented by who was at bedside. Yesterday pt had an unremarkable PCP visit in the morning and was ?given a clean bill of health?. At home that afternoon noticed pt was ?out of it? and acting more confused and lethargic above baseline. Has been went to bed later that evening while pt was watching a TV show. Has been woke up at 01:00 and noticed pt was not in bed. Went downstairs to find her not sitting in her normal chair, confused, and not responding to questions. Attempted to a walk her upstairs to the bed, but was unable to and called EMS to bring her to the ED. did not otherwise noticed any other symptoms nor did pt complain of anything. Currently pt reports she feels ?fuzzy? and with some fogginess and thinking, but otherwise has no acute medical complaints. Denies nausea, vomiting, abdominal pain. No chest pain/pressure, palpitations. Denies shortness or breath or difficulty breathing. No cough. Denies headache or acute vision changes. No neck pain. Denies polyuria or dysuria. In the ED pt was febrile up to 103.4, tachycardic up to 112, and tachypneic up to 26, and mostly hypertensive as high as 167/69. Labs were significant for sodium 129, potassium 5.3, lactic acid 2.4, T bili 2.3, AST 536, ALT 516, and alk-phos 122. Ammonia WNL. No leukocytosis. Stable H&H and platelets. Renal function WNL. CXR showed no acute infiltrate. CTA of head/neck negative for hemodynamically significant stenosis or intracranial large vessel occlusion. ?CT of abdomen showing surgically absent gallbladder with [id number] intrahepatic biliary dilation and dilation of the CBD greater than expected. EKG demonstrated sinus tachycardia of [address] and T-wave abnormalities. Pt was treated in the ED with IVF, ceftriaxone, metronidazole, and acetaminophen. Pt is admitted to the hospital for treatment and further evaluation of acute metabolic encephalopathy in the setting of possible acute cholangitis with sepsis. hospital course: Patient was admitted for acute metabolic encephalopathy due to sepsis from presumed acute cholangitis. Underwent ERCP on 07/12/2024 no obvious obstruction but did show old bile, suspicion for recently passed stone. Was treated with IV Zosyn and will be discharged on 5 more days of Ceftin. Sepsis resolved and mental status returned to baseline. For myeloproliferative disorder was continued on Hydrea. For hypertension continued on metoprolol and Cardizem. Time Attestation Discharge Coordination Time (in mins): 37 Quality: Safe Use of Opioids Does Pt have an Active Cancer Diagnosis on the Problem List?: No Quality: Stroke Does the patient have a stroke diagnosis?: No Physical Exam Vital Signs: Vital Signs: Last Vital Signs Temp 98.2 F 07/14/24 06:56 Pulse 90 07/14/24 06:56 Resp 16 07/14/24 06:56 BP 128/56 L 07/14/24 06:56 Pulse Ox 94 07/14/24 06:56 O2 Del Method Room Air 07/14/24 06:56 O2 Flow Rate 2 07/12/24 17:14 BMI result Body Mass Index 22.5 General: AO X 3, no acute distress Resp: CTA bilateral, no accessory muscles used CVS: S1,S2,RRR GI: soft, non tender, non distended Neuro: motor grossly intact, alert Psych: appropriate affect, appropriate insight DS: Data Data Completed and Pending Labs on day of discharge: Laboratory Results - last 24 hr 07/14/24 07:50 WBC 4.1 L RBC 2.77 L Hgb 10.2 L Hct 30.6 L MCV 110.5 H MCH 36.8 H MCHC 33.3 RDW 13.3 Plt Count 214 MPV 9.7 Absolute Nucleated RBC 0.000 Nucleated RBC % (auto) 0.0 PT 12.4 INR 1.1 Sodium 139 Potassium 3.2 L Chloride 108 Carbon Dioxide 25 Anion Gap 9 L BUN 9 Creatinine 0.90 Estim Creat Clear Calc 35.0 Estimated GFR 59 Random Glucose 112 Calcium 8.9 Magnesium 2.1 Total Bilirubin 2.7 H Direct Bilirubin 2.0 H AST 158 H ALT 306 H Alkaline Phosphatase 135 H Total Protein 5.9 L Albumin 3.2 L Preliminary micro results at discharge 07/12/24 03:49 Blood Culture - Preliminary Blood - Venous No growth after 48 hours. 07/12/24 03:49 Blood Culture - Preliminary Blood - Venous No growth after 48 hours. Discharge Plan Discharge Anticipated Discharge Date/Time: 07/14/24 10:40 Patient Disposition: Home, Self-Care Discharge Diagnosis: cholangitis Referrals: Physician,Unknown J [Primary Care Provider] - 1 Week Discharge Medications: New cefuroxime axetil 500 mg tablet 500 mg PO BID Qty: 10 0RF Continued hydroxyurea 500 mg capsule 500 mg PO DAILY hydroxyzine pamoate 25 mg capsule 25 mg PO TID PRN (Reason: Anxiety) duloxetine 20 mg capsule,delayed release(DR/EC) 20 mg PO BID metoprolol succinate 100 mg tablet extended release 24 hr 50 mg PO DAILY aspirin 81 mg tablet,delayed release (DR/EC) 81 mg PO DAILY diltiazem HCl 120 mg capsule,extended release 12 hr 120 mg PO DAILY PreserVision AREDS 4,296 mcg-226 mg-90 mg capsule 1 cap PO BID Discharge Orders: Discharge Order (Routine); Ordered 07/14/24 Ordered By: Osvaldo Gibbons Diet: Advance to usual diet Activity on Discharge: As tolerated Stand Alone Forms: Patient Portal Discharge page Print Language: Icelandic Care Plan Goals: recovery Health Concerns: cholangitis Plan of Treatment: 5 days cefitn, follow up with gi Assessment: see above
[2024-07-14] MEDS: Hydroxyurea 500 MG CAPSULE PO (10:52)
--- NOTE | 2024-07-14 12:39 | MHC.CM.PN ---
PT IS MEDICALLY CLEARED FOR DC HOME WITH NO SERVICES, HOWEVER HER IS IN THE ED PER DISCUSSION, SHE WILL WAIT TO LEARN IF HER WILL BE DISCHARGED FROM ED IF HE NEEDS TO BE ADMITTED, SHE WILL CALL ANOTHER RIDE
== END 2024-07-14 14:42 | disposition home or self-care (01) | DRG 871 ==
LOC: HO.ED 07:17 → HO.EDOVER 08:09 → HO.S3 17:05
PROVIDERS: Family Medicine; Internal Medicine Gastroenterology; Student in an Organized Health Care Education/Training Program; Admitting Provider Internal Medicine; Emergency Provider Emergency Medicine; PCP Internal Medicine; Visit Provider Internal Medicine
PROC: 0F798ZZ Dilation of Common Bile Duct, Via Natural or Artificial Opening Endoscopic (ICD-10-PCS; CPT 43260; principal; 2024-07-12 13:00)
DX: A41.9 Sepsis, unspecified organism (principal); G93.41 Metabolic encephalopathy; K83.09 Other cholangitis; E87.1 Hypo-osmolality and hyponatremia; E87.21 Acute metabolic acidosis; D47.1 Chronic myeloproliferative disease; I10 Essential (primary) hypertension; Z20.822 Contact with and (suspected) exposure to COVID-19; Z79.82 Long term (current) use of aspirin; Z79.899 Other long term (current) drug therapy
CPT/HCPCS: 0241U; 36415; 70450; 70496; 70498; 71045; 74176; 80048; 80053; 80076; 80143; 80179; 80307; 81001; 82140; 82272; 82947; 83605; 83735; 84484; 85025; 85027; 85610; 86704; 86706; 86709; 86803; 87040; 87340; 93005; 99285; J0696; J1610; J1836; J2003; J2405; J2543; J2704; J3010; Q9967

== ENCOUNTER → 2024-07-12 02:59 | Outpatient (BNV) | payer MEDICARE, SELFPAY | PROVIDERS: Emergency Provider Emergency Medicine; Visit Provider Radiology Diagnostic Radiology | DX: R41.82 Altered mental status, unspecified (principal); K57.30 Diverticulosis of large intestine without perforation or abscess without bleeding; K83.8 Other specified diseases of biliary tract; R50.9 Fever, unspecified | CPT/HCPCS: 70450; 70496; 70498; 71045; 74176 ==

== ENCOUNTER → 2024-07-12 03:00 | Outpatient (BNV) | payer MEDICARE, SELFPAY | PROVIDERS: Admitting Provider Internal Medicine; Emergency Provider Emergency Medicine; Visit Provider Internal Medicine | DX: R00.0 Tachycardia, unspecified (principal) | CPT/HCPCS: 93010 ==

== ENCOUNTER → 2024-07-12 07:03 | Outpatient (BNV) | payer MEDICARE, SELFPAY | PROVIDERS: Admitting Provider Internal Medicine; Emergency Provider Emergency Medicine; Visit Provider Internal Medicine | DX: A41.9 Sepsis, unspecified organism (principal); K83.09 Other cholangitis; R74.01 Elevation of levels of liver transaminase levels; R50.9 Fever, unspecified | CPT/HCPCS: 43262; 99223 ==

== ENCOUNTER → 2024-07-12 07:03 | Outpatient (BNV) | payer MEDICARE, SELFPAY | PROVIDERS: Admitting Provider Internal Medicine; Emergency Provider Emergency Medicine; Visit Provider Student in an Organized Health Care Education/Training Program | DX: R79.89 Other specified abnormal findings of blood chemistry (principal) | CPT/HCPCS: 99223; 99232; 99239 ==

== ENCOUNTER 2024-08-29 15:36 | Emergency (ER) | payer MEDICARE, SELFPAY ==
[2024-08-29 15:53] VITALS: BP 164/68; PULSE 111; PULSE 96; RESP 14; TEMP 36.9; O2SAT 94; BMI 24.8
--- OUTSIDE RECORDS SUMMARY | 2024-08-29 16:45 | XMS_ITS | Encounter Summary ---
Author Organization [facility] Address [address] [place] [address] Phone Care Team Providers Care Steel Grinder Name Role Phone Wenceslao Aquino MD Primary Care Provider [phone] Reason for Visit * Reason Onset Date Comments Patient Returned Call 06/21/2024 Encounter Details Date Type Department Care Team (Late st Contact Info) Description 06/21/2024 Telephone [employer] [facility] Rheumatology [address] [place] [address] Tess Kirk MD [address] [place] [address] [email or web address] Patient Returned Call Social History Tobacco Use Types Packs/Day Years Used Date Smoking Tobacco: Never Smokeless Tobacco: Never Alcohol Use Standard Drinks/Week Comments Yes 0 (1 standard drink = 0.6 oz pur e alcohol) occ Education Answer Date Recorded Are you interested in more education? Not on chet e 06/04/2022 Are you concerned about learning? Not on file 06/04/2022 No 06/04/2022 No 06/04/2022 Digital Access Answer Date Recorded No 07/06/2022 No 07/06/2022 Reliable internet access at home? Not on file 07/06/2022 Device with a working camera? Not on file Comments Unknown Sex and Gender Information Value Date Recorded Sex Assigned at Not on file Legal Sex Female 8:57 AM EDT Gender Identity Not on file Sexual Orientation Not on file documented as of this encounter Progress Notes * Na Lenz RN - 06/21/2024 3:55 PM EDT See lab results * MonicaNicole - 06/21/2024 12:57 PM EDT PT is calling states that she is returning a phone call to . PT is requesting call back. 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 documented in this encounter Plan of Treatment Upcoming Encounters Date Type Department Care Team (Late st Contact Info) Description 09/12/2024 11:00 AM EDT Office Visit [facility] Rheumatology [address] [place] [address] Tess Kirk MD [address] [place] [address] [email or web address] documented as of this encounter Visit Diagnoses Not on filedocumented in this encounter Care Teams Steel Grinder Relationship Specialty Start Date End Date Wenceslao Aquino MD [address] [place] [address] [address] [place] [address] PCP - General Internal Medicine 08/29/18 documented as of this encounter Additional Source Comments The information contained in this document represents components of the legal health record. It is not the complete legal health record.[facility]
--- OUTSIDE RECORDS SUMMARY | 2024-08-29 16:45 | XMS_ITS | Patient Health Record ---
[facility] Address [address] [place] [address] Care Team Providers Care Radiologic Tech Name Role Phone Wenceslao Aquino MD Primary Care Provider Dallin Sharpe Unavailable [phone] Allergies Allergen (clinical drug ingredient) Drug/Non Drug Allergy documented on EMR Reaction Allergy Type Onset Date Status ePHEDrine HCl rapid heart rate Drug Allergy Active Adhesive Tape rash Drug Allergy Act gianluca Reason For Referral No Information Medications Medication SIG (Take, Route, Frequency, Duration) Notes Start Date End Date Status Hydrea 500 MG 1 capsule Orally Once a day Active Methadone HCl Not-Ta sarwat hydrOXYzine HCl 25 MG/ML as directed Active Diclofenac Sodium 75 MG Oral; Duration: 90 Not-Taking Ciclopirox Olamine 0.77 % 1 application Externally Twice a day; Duration: 30 days Active potassium Not-Taking Align Active Chlorthalidone 25 MG 1 tablet in the morning with food Orally Once a day; Duration: 30 day(s) Water Pill Not-Taking Atorvastatin Calcium Not-Taking Gabapentin 300 MG Orally No t-Taking Calcium + D Active Ranitidine PRN Not-Takin g dilTIAZem HCl ER Coated Beads 180 MG 1 capsule Orally Once a day Active Yuvafem 10 MCG Vaginal; Duration: 84 Not-Taking Metoprolol Succinate ER 50 MG Oral; Duration: 90 Active Doxycycline Hyclate 100 MG Oral; Duration: 10 Not-Takin g Multivitamin Active predniSONE 20 MG Oral; Duration: 10 Not-Taking MiraLax Active Boostrix 5-2.5-18.5 Intramuscular; Duration: 1 Not-Taking Baby Aspirin Active Ammonium Lactate 12 % APPLY CREAM TOPICALLY TO AFFECTED AREA TWICE DAILY TO FEET; Duration: 30 Active Immunizations Vaccine Route Administration Date Status Comme nts Influenza Unknown 10/08/2021 Administered COVID-19 Pfizer BioNTech Vaccine Unknown 10/15/2021 Administered 1st 03/15/20202021 2nd 04/05/2020 3rd 10/15/2020 Social History Tobacco Use: Social History Observation Description Date Details (start date - stop date) Never Smoker NA - NA Tobacco use other than smoking: Question Answer Notes Are you an other tobacco user? No Tobacco Control (Standard) Question Answer Notes Tobacco use: Nonsmoker Additional Findings: Tobacco non-user Current no nsmoker AUDIT-C (Standard) Question Answer Notes Did you have a drink containing alcohol in the p ast year? No Points 0 Interpretation Negative Problems Problem Type SNOMED Code ICD Code Onset Dates Problem Status W/U Status Risk Notes Problem Bilateral atherosclerosis of arteries of lower limbs (disorder) ([id number] ) Atherosclerosis of caddo artery of both lower extremities, with unspecified presence of clinical manifestation (I70.203) Active confirmed Vital Signs Blood pressure diastolic 70 mm Hg 05/15/2024 Height 5 ft 1.5 in in 05/15/2024 Blood pressure systolic 120 mm Hg 05/15/2024 Weight 120 lbs 05/15/2024 BMI 22.3 kg/m2 05/15/2024 Procedures Procedure Date Ordered Date Performed Result Body Sit e 44266-PWJIFNZ NAIL, 6 OR MORE 11/04/2023 N/A 09482-VOFK SKIN LESIONS, OVER 4 11/04/2023 N/A 12991-OAALELH NAIL, 6 OR MORE 02/14/2024 N/A 24472-NLBC SKIN LESIONS, OVER 4 02/14/2024 N/A 44197-TSANRKD NAIL, 6 OR MORE 05/15/2024 N/A 03357-UKEM SKIN LESIONS, OVER 4 05/15/2024 N/A Encounters Encounter Location Date Provider Diagnosis [facility] [place] [address] [place] [address] 11/04/2023 Dallin Alvarado Atherosclerosis of caddo artery of both lower extremities, with unspecified presence of clinical manifestation I70.203 ; Onychomycosis B35.1 ; Pain of toe of right foot M79.674 ; Pain of toe of left foot M79.675 and Xerosis of skin L85.[address] [address] 02/14/2024 Dallin Alvarado Atherosclerosis of caddo artery of both lower extremities, with unspecified presence of clinical manifestation I70.203 ; Onychomycosis B35.1 ; Pain of toe of right foot M79.674 ; Pain of toe of left foot M79.675 and Xerosis of skin L85.[address] [address] 05/15/2024 Dallin Alvarado Atherosclerosis of caddo artery of both lower extremities, with unspecified presence of clinical manifestation I70.203 ; Onychomycosis B35.1 ; Pain of toe of right foot M79.674 and Pain of toe of left foot M79.[address] [address] 08/20/2024 Dallin Alvarado Assessments Encounter Date Diagnosis (ICD Code) Assessment Notes Treatment Notes Treatment Clinical Notes Section Notes 11/04/2023 Onychomycosis (ICD-10 - B35.1) 11/04/2023 Atherosclerosis of caddo artery of both lower extremities, with unspecified presence of clinical manifestation (ICD-10 - I70.203) 02/14/2024 Onychomycosis (ICD-10 - B35.1) 02/14/2024 Atherosclerosis of caddo artery of both lower extremities, with unspecified presence of clinical manifestation (ICD-10 - I70.203) 05/15/2024 Onychomycosis (ICD-10 - B35.1) 05/15/2024 Atherosclerosis of caddo artery of both lower extremities, with unspecified presence of clinical manifestation (ICD-10 - I70.203) 05/15/2024 Pain of toe of right foot (ICD-10 - M79.674) 02/14/2024 Pain of toe of right foot (ICD-10 - M79.674) 11/04/2023 Pain of toe of right foot (ICD-10 - M79.674) 11/04/2023 Pain of toe of left foot (ICD-10 - M79.675) 02/14/2024 Pain of toe of left foot (ICD-10 - M79.675) 05/15/2024 Pain of toe of left foot (ICD-10 - M79.675) 02/14/2024 Xerosis of skin (ICD-10 - L85.3) 11/04/2023 Xerosis of skin (ICD-10 - L85.3) Plan Of Treatment Pending Test Test Name Order Date 12699-CYMLGXI NAIL, 6 OR MORE 11/18/2017 94870-FEFKZQE NAIL, 6 OR MORE 03/14/2018 97733-MOFXSVJ NAIL, 6 OR MORE 06/13/2018 56616-ZCJVEDN NAIL, 6 OR MORE 09/12/2018 09506-WXRESVV NAIL, 6 OR MORE 12/12/2018 75579-ZKRZYEW NAIL, 6 OR MORE 03/20/2019 93301-OWIUGKA NAIL, 6 OR MORE 06/19/2019 65259-YKZVHUL NAIL, 6 OR MORE 09/21/2019 90820-LOWJTZI NAIL, 6 OR MORE 12/21/2019 27150-AACSAED NAIL, 6 OR MORE 03/25/2020 12001-ETQFKZZ NAIL, 6 OR MORE 06/24/2020 71325-RVTJBNO NAIL, 6 OR MORE 09/23/2020 76938-GRPKYSV NAIL, 6 OR MORE 12/23/2020 40981-YBZUHKI NAIL, 6 OR MORE 03/24/2021 82359-EXRVWPL NAIL, 6 OR MORE 06/23/2021 72377-CIPOBLX NAIL, 6 OR MORE 09/15/2021 32806-MLMHJLC NAIL, 6 OR MORE 01/12/2022 83983-AHWFZYF NAIL, 6 OR MORE 05/11/2022 34702-AYNWRSB NAIL, 6 OR MORE 08/13/2022 54159-LYBLOVJ NAIL, 6 OR MORE 11/23/2022 51554-RDDFDAH NAIL, 6 OR MORE 02/25/2023 73063-HSAXDAY NAIL, 6 OR MORE 08/02/2023 50330-CVBACEG NAIL, 6 OR MORE 11/04/2023 99434-XGQZVOK NAIL, 6 OR MORE 02/14/2024 69946-PDFKDGG NAIL, 6 OR MORE 05/15/2024 82393-FFRV SKIN LESIONS, OVER 4 05/16/19 45843-VBCC SKIN LESIONS, OVER 4 02/13/19 25 83447-BEBU SKIN LESIONS, OVER 4 11/04/19 24 85565-JJLY SKIN LESIONS, OVER 4 08/02/19 24 49232-RXKC SKIN LESIONS, OVER 4 02/25/19 24 82288-QKIH SKIN LESIONS, OVER 4 11/24/19 23 69977-UNXL SKIN LESIONS, OVER 4 08/14/19 23 67323-OAOX SKIN LESIONS, OVER 4 05/12/19 23 48605-MBDF SKIN LESIONS, OVER 4 01/13/20 22 65610-SHCP SKIN LESIONS, OVER 4 09/16/19 22 46059-WOHQ SKIN LESIONS, OVER 4 06/24/19 22 31980-TVLV SKIN LESIONS, OVER 4 03/24/19 06260- Biopsy of skin lesion 10/14/2017 Next Appt Details Provider Name:Dallin Alvarado , 11/09/2024 10:45:00 AM, [address] [place] [address], [phone], Insurance Providers Payer Name Payer Address Payer Phone Subscriber Number Group Number Insured Name Patient Relationship to Insured Coverage Start Date Coverage End Date Medicare [employer] [facility] [employer] [address] [place] [address] [id number] Alessandra Edwards Self - patient is the insured 4 [employer] [address] [place] [address] [id number] Alessandra Edwards Self - patient is the [...]
--- OUTSIDE RECORDS SUMMARY | 2024-08-29 16:45 | XMS_ITS | Clinical Summary ---
Author Organization [facility] Address [address] [place] [address] Care Team Providers Care Safety Manager Name Role Phone Wenceslao Aquino MD Primary Care Provider [phone] Allergies Active Allergy Reactions Criticality Noted Date [...] (two) times a day. 0 Active b ehnhjgo-F-fakzr acid 1 MG capsule Take 1 capsule [...] 73 02/27/2019 11:18 AM EST Temperature 36.2 C (97.2 F) 02/27/2019 11:18 AM EST Respiratory Rate - - Oxygen Saturation - [...] 1-dose 75+ series) 04/27/2010 Influenza Vaccine (#1) 2024 Hepatitis B Vaccines Aged Out No long er eligible based on patient's age to complete this topic RSV Ped < 20 months Aged Out No longe r eligible based on patient's age to complete this topic Care Teams Safety Manager Relationship Specialty Start Date End Date Wenceslao Aquino MD [address] [facility] [address] [place] [address] PCP - General Java Manager 08/22/18
--- NOTE | 2024-08-29 17:00 | ED.GENADULT ---
HPI - General Adult General Chief complaint: General Medical Stated complaint: htn Time Seen by Provider: 08/29/24 16:32 Source: patient Mode of arrival: ambulatory Limitations: no limitations History of Present Illness ED Provider: HPI narrative: Patient's history of hypertension on diltiazem and metoprolol usually blood pressure is in 140s range for last 2 days noticed a blood pressure in 160's no change in medications other than high blood pressure patient does not have any complaints no chest pain no shortness a breath no headache patient has had previous labs done in 07/31 with normal kidney functions patient has been having chronic diarrhea for more than 4 weeks diagnose with norovirus Related Data Home Medications ?Medication ?Instructions ?Recorded ?Confirmed diltiazem HCl 120 mg 120 mg PO DAILY 08/17/23 07/12/24 capsule,extended release 12 hr vitamins A,C,X-aqbl-ewwavo 4,296 1 cap PO BID 08/17/23 07/12/24 mcg-226 mg-90 mg capsule (PreserVision AREDS) aspirin 81 mg tablet,delayed 81 mg PO DAILY 01/16/24 07/12/24 release duloxetine 20 mg capsule,delayed 20 mg PO BID 07/12/24 07/12/24 release hydroxyurea 500 mg capsule 500 mg PO DAILY 07/12/24 07/12/24 hydroxyzine pamoate 25 mg capsule 25 mg PO TID PRN Anxiety 07/12/24 07/12/24 metoprolol succinate 100 mg 50 mg PO DAILY 07/12/24 07/12/24 tablet,extended release 24 hr Previous Rx's ?Medication ?Instructions ?Recorded cefuroxime axetil 500 mg tablet 500 mg PO BID #10 tabs 07/14/24 Allergies Allergy/AdvReac Type Severity Reaction Status Date / Time perfume Allergy Unknown UNKNOWN Verified 08/29/24 15:57 [email or web address] (From Myrbetriq) AdvReac Intermediate Nausea Verified 08/29/24 15:57 Review of Systems Review of Systems: Yes all other systems are reviewed and are negative [facility] Past Medical History Medical History FHx: cholecystectomy Cataracts, bilateral FH: bilateral hip replacements High cholesterol Hypertension Restless legs Arthritis Surgical History History of appendectomy H/O: hysterectomy History of lumbar fusion Social History Social History Household Members: Spouse Housing: House Do you presently have visiting nurse or other home services: No Patient Tobacco Use Status: Never used Tobacco Advance Directives: No Advance Directives Information Provided: No service: No Physical Exam ED Vital Signs: Vital Signs - 24 hr 08/29/24 15:53 08/29/24 18:02 Temperature 98.5 F 98.6 F Pulse Rate 96 93 Respiratory Rate 14 16 Blood Pressure 164/68 H 177/67 H Pulse Oximetry 94 96 Oxygen Delivery Method Room Air Room Air BMI result Body Mass Index 24.8 Appearance: Alert. Oriented X3. No acute distress. Thin built Eyes: PERRLA, No Nystagmus ENT: Pharynx normal. Oral Mucosa moist Neck: Normal inspection. Neck supple. CVS: Normal heart rate and rhythm. Pulses normal. Respiratory: No respiratory distress. Equal air entry bilateral, no wheezing/rales/rhonchi Abdomen: Soft and nontender. Bowel sounds are present, no mass palpable, no CVA tenderness Skin: Skin warm and dry. Normal skin color. Normal skin turgor. Extremities: No lower extremity edema. No calf tenderness Neuro: Oriented X 3. No motor deficit. No sensory deficit.No cerebellar signs , cranial nerves II-XII intact Medications Administered Discontinued Medications Generic Name Dose Route Start Last Admin Trade Name Freq PRN Reason Stop Dose Admin Metoprolol Succinate 50 mg 08/29/24 17:22 08/29/24 17:56 Metoprolol Succinate Er 50 Mg Tab.Er.24h PO 08/29/24 17:23 50 mg ONCE ONE Administration Protocol Medical Decision Making Medical Decision Making MDM Narrative: Patient with transient elevated high blood pressure at home repeat blood pressure in the ER was 164/68 will check chemistry 1830: Patient with stable labs blood pressure been stable advised to follow with PCP last blood pressure 160/70 Admission/Observation Consideration of admission/observation: Escalation of care including admission/observation considered Lab Data MDM Lab Attestation statement: I reviewed the patient's lab results. 08/29/24 17:58 08/29/24 17:58 Labs: Lab Results 08/29/24 Range/Units 17:58 WBC 4.4 L (4.8-10.8) X10*3/uL RBC 2.92 L (4.20-5.50) X10*6/uL Hgb 10.8 L (12.0-16.0) g/dl Hct 32.5 L (37.0-47.0) % MCV 111.3 H (80.0-98.0) fL MCH 37.0 H (27.0-33.0) pg MCHC 33.2 (31.0-35.0) g/dl RDW 13.7 (11.0-16.0) % Plt Count 334 D (160-400) X10*3/uL MPV 9.2 L (9.4-12.3) fL Immature Gran % (Auto) 0.2 (0.0-0.4) % Neut % (Auto) 54.4 (45-73) % Lymph % (Auto) 31.9 (20-40) % Wilkinson % (Auto) 10.7 (2-11) % Eos % (Auto) 2.1 (0-4) % Baso % (Auto) 0.7 (0-2) % Lymph # (Auto) 1.4 (1.2-4.9) X10*3/uL Wilkinson # (Auto) 0.5 (0.1-1.2) X10*3/uL Eos # (Auto) 0.1 (0.0-0.4) X10*3/uL Baso # (Auto) 0.0 (0.0-0.2) X10*3/uL Abs Immat Gran (auto) 0.01 (0.00-0.03) X10*3/uL Absolute Neuts (auto) 2.4 (2.0-8.3) x10*3/uL Absolute Nucleated RBC 0.000 (0.0-0.012) X10*3/uL Nucleated RBC % (auto) 0.0 (0.0-0.2) /100WBC Smear Tech's Comments VERIFIED Sodium 140 (135-145) mmol/L Potassium 4.1 D (3.3-5.1) mmol/L Chloride 104 (96-108) mmol/L Carbon Dioxide 31 H (22-29) mmol/L Anion Gap 9 L (12-20) BUN 13 (9-16) mg/dL Creatinine 1.15 (0.5-1.4) mg/dL Estim Creat Clear Calc 26.4 Estimated GFR 44 Random Glucose 111 (60-115) mg/dL Calcium 9.6 D (8.4-10.2) mg/dL Total Bilirubin 0.3 (0.0-1.0) mg/dL AST 33 H (5-31) U/L ALT 15 (0-31) U/L Alkaline Phosphatase 54 (39-117) U/L Total Protein 6.2 L (6.5-8.0) g/dL Albumin 3.9 (3.5-5.0) g/dL Urine Color Yellow Urine Appearance Clear Urine pH 7.5 (5.0-9.0) Ur Specific Chelsea <= 1.005 (1.005-1.025) Urine Protein Negative (Neg-Trace) mg/dL Urine Glucose (UA) Negative (Negative) mg/dL Urine Ketones Negative (Negative) mg/dL Urine Blood Negative (Negative) Urine Nitrite Negative (Negative) Ur Leukocyte Esterase Small (1+) H (Negative) Urine RBC 0-2 (0-2) /HPF Urine WBC 11-20 H (0-5) /HPF Ur Squamous Epith Cells 3-5 (0-2) /HPF Urine Bacteria None Seen (None Seen) Hyaline Casts 0-2 (0-2) /LPF Independent Interpretation I performed an independent interpretation of an: EKG Discharge Plan Discharge Clinical Impression: Benign essential hypertension Patient Disposition: Home, Self-Care Instructions: Hypertension (ED) Additional Instructions: Check your blood pressure daily before you take the medication it should be less than 160/90 refused persistently higher Decrease salt intake Follow with your PCP Prescriptions: No Action hydroxyurea 500 mg capsule 500 mg PO DAILY hydroxyzine pamoate 25 mg capsule 25 mg PO TID PRN (Reason: Anxiety) duloxetine 20 mg capsule,delayed release(DR/EC) 20 mg PO BID metoprolol succinate 100 mg tablet extended release 24 hr 50 mg PO DAILY cefuroxime axetil 500 mg tablet 500 mg PO BID Qty: 10 0RF aspirin 81 mg tablet,delayed release (DR/EC) 81 mg PO DAILY diltiazem HCl 120 mg capsule,extended release 12 hr 120 mg PO DAILY PreserVision AREDS 4,296 mcg-226 mg-90 mg capsule 1 cap PO BID Discharge Date/Time: 08/29/24 18:50 Print Language: Russian
[2024-08-29] MEDS: Metoprolol Succinate ER 50 MG TAB.ER.24H PO (17:56)
[2024-08-29 18:02] VITALS: BP 177/67; PULSE 93; RESP 16; TEMP 37; O2SAT 96
[2024-08-29 18:07] LABS: Hematocrit 32.5 % (37.0-47.0); Hemoglobin 10.8 g/dl (12.0-16.0); Imm Gran Abs Auto 0.01 X10*3/uL (0.00-0.03); Imm Gran Pct Auto 0.2 % (0.0-0.4); Lymphocytes Absolute Auto 1.4 X10*3/uL (1.2-4.9); Mean Corpuscular HGB Conc 33.2 g/dl (31.0-35.0); Mean Corpuscular Hemoglobin 37.0 pg (27.0-33.0); NRBC Abs Auto 0.000 X10*3/uL (0.0-0.012); NRBC Pct Auto 0.0 /100WBC (0.0-0.2); Platelet Count 334 X10*3/uL (160-400); Red Blood Count 2.92 X10*6/uL (4.20-5.50); White Blood Count 4.4 X10*3/uL (4.8-10.8)
[2024-08-29 18:09] LABS: Appearance Urine Clear; Glucose Urine UA Negative (Negative); PH 7.5 (5.0-9.0); Specific Gravity - Urine <= 1.005 (1.005-1.025); UMIC TRIGGER UACC YES
[2024-08-29 18:11] LABS: Mean Corpuscular Volume 111.3 fL (80.0-98.0)
[2024-08-29 18:12] LABS: MANUAL DIFF FLAG SCAN
[2024-08-29 18:15] LABS: UACC Culture Trigger YES
[2024-08-29 18:17] LABS: Alanine Aminotransferase 15 U/L (0-31); Albumin Level 3.9 g/dL (3.5-5.0); Alkaline Phosphatase 54 U/L (39-117); Anion Gap 9 (12-20); Aspartate Amino Transferase 33 U/L (5-31); Blood Urea Nitrogen 13 mg/dL (9-16); Calcium 9.6 mg/dL (8.4-10.2); Carbon Dioxide 31 mmol/L (22-29); Chloride 104 mmol/L (96-108); Creatinine Clr Calc Pharmacy 26.4; Estimated Glomerular Filt Rate 44; Potassium 4.1 mmol/L (3.3-5.1); Sodium 140 mmol/L (135-145); Total Protein 6.2 g/dL (6.5-8.0)
== END 2024-08-29 18:50 | disposition home or self-care (01) ==
PROVIDERS: Emergency Provider Internal Medicine; PCP Internal Medicine
DX: I10 Essential (primary) hypertension (principal); Z79.899 Other long term (current) drug therapy
CPT/HCPCS: 36415; 80053; 81001; 85025; 87086; 99283

== ENCOUNTER 2024-09-25 13:06 | Outpatient (AMB) | payer MEDICARE, SELFPAY ==
--- NOTE | 2024-09-25 13:13 | A.OFFVIS_ITS ---
Intake Visit Reasons: Memory concerns Allergies perfume Allergy (Unknown, Verified 08/29/24 15:57) UNKNOWN [email or web address] (From Myrbetriq) Adverse Reaction (Intermediate, Verified 08/29/24 15:57) Nausea Medication List - Last Reconciled 09/25/24 by Dutch Canales MD aspirin 81 mg PO DAILY cefuroxime axetil 500 mg PO BID diltiazem HCl ER 120 mg PO DAILY duloxetine 20 mg PO BID hydroxyurea 500 mg PO DAILY hydroxyzine pamoate 25 mg PO TID PRN metoprolol succinate ER 50 mg PO DAILY vitamins A,C,R-pshs-oufhwj 4,296 mcg-226 mg-90 mg (PreserVision AREDS) 1 cap PO BID HPI Comments Details: The patient is an 89-year-old female presenting with memory impairment and management considerations for Alzheimer's disease. The onset of her memory difficulties was noted in June and has since progressed, initially affecting numerical cognition and advancing to occasional word-finding issues. She acknowledges increased stress related to these cognitive difficulties. Her hearing deficit, approximately three to four years in duration, has been managed with hearing aids, though their usage has been inconsistent due to missed follow-up appointments. Past medical history includes arthritis, with duloxetine prescribed for concurrent pain and depression. Her familial history includes Alzheimer's disease, with her father having had the condition. Currently, she chooses not to drive as a precautionary measure. [facility] Medical History FHx: cholecystectomy Cataracts, bilateral FH: bilateral hip replacements High cholesterol Hypertension Restless legs Arthritis Surgical History History of appendectomy H/O: hysterectomy History of lumbar fusion Social History Household Members: Spouse Housing: House Do you presently have visiting nurse or other home services: No Patient Tobacco Use Status: Never used Tobacco service: No Review of Systems Const Details: - Neurological: Reports memory impairment, difficulty with number processing, occasional word-finding difficulties; Denies dizziness. - Ears: Reports history of hearing deficit for 3-4 years. - Psychiatric: Reports stress, states occasional feelings of depression. Physical Exam Neuro Other: Mental Status: Alert and oriented to person, place, and time. Normal attention. Normal spontaneous speech, fluency, and comprehension. MMS: 26 Cranial Nerves: CN II: Visual feliz full to confrontation, visual acuity intact. CN III, IV, : Pupils equal, round, reactive to light and accommodation. Extraocular movements are normal. CN V: Facial sensation is normal. CN VII: Facial movements symmetrical. CN VIII: Hearing intact to bedside conversation is decreasedl. CN IX, X: Palate elevates symmetrically. CN XI: Shoulder shrug and head turn symmetrical. CN XII: Tongue midline without atrophy or fasciculations. Motor: DTRs are absent. Gait: Is ok. Extrapyramidal: Full facial expressions and blinking. No rigidity. Movements are appropriate with no tremor or abnormality. Speech: Normal; no dysarthria or tremor. Assessment & Plan Assessment & Plan (1) Alzheimer dementia: Comment: CT brain WO at [facility] in 2024: Mod severe diff central and cortical atrophy Code(s): G30.9 - Alzheimer's disease, unspecified; F02.80 - Dementia in other diseases classified elsewhere, unspecified severity, without behavioral disturbance, psychotic disturbance, mood disturbance, and anxiety Category: Medical Qualifiers: Alzheimer's disease onset: late onset Dementia behavioral or psychological symptom: with anxiety Dementia severity: mild Qualified Code(s): G30.1 - Alzheimer's disease with late onset; F02.A4 - Dementia in other diseases classified elsewhere, mild, with anxiety Plan: Today, I addressed the likely diagnosis of Alzheimer's disease with mild to moderate severity, emphasizing the family's role and the challenges in care man agement. I introduced donepezil as a treatment, explaining its temporary cognitive benefits and reviewing potential side effects, instructing to take it in the morning if vivid dreams occur. Hearing aids were noted, and a new hearing test was recommended to enhance auditory input. Stress management strategies favor lifestyle changes and engaging in physical activities. Family dynamics and proximity were discussed as part of supportive care, advising on potential relocations. I advised reading more about these conditions and how best to support their parents. Follow-up and proactive communication within the family were encouraged to facilitate care planning. (2) Deafness: Code(s): H91.90 - Unspecified hearing loss, unspecified ear Category: Medical Qualifiers: Laterality: unspecified laterality Qualified Code(s): H91.90 - Unspecified hearing loss, unspecified ear Plan Impression: a: Mild to mod dementia, probably of Alzheimer type with significant diffuse brain atrophy b: Significant hearing impairment Rec: a: Education b: B12/folate c: Hearing test and hearing aid Orders: Orders Vitamin B12 and Folate Today F02.A4 - Dementia in other diseases classified elsewhere, mild, with anxiety, G30.1 - Alzheimer's disease with late onset Referrals Audiology Referral F02.A4 - Dementia in other diseases classified elsewhere, mild, with anxiety, G30.1 - Alzheimer's disease with late onset Medications: New donepezil 5 mg PO DAILY 90 tabs 0RF Coding Level of Care Code Tele New Pt Level 5 (31339) Diagnoses Mild late onset Alzheimer's dementia with anxiety G30.1; F02.A4 Alzheimer's disease onset: late onset Dementia behavioral or psychological symptom: with anxiety Dementia severity: mild Deafness, unspecified laterality H91.90 Laterality: unspecified laterality
--- OUTSIDE RECORDS SUMMARY | 2024-09-25 14:15 | XMS_ITS | Clinical Summary ---
Author Organization [facility] Address [address] [place] [address] [place] [id number] Phone Care Team Providers Care Director Of Public Relations Name Role Phone Wenceslao Aquino MD Primary Care Provider [phone] Allergies Active Allergy Reactions Criticality Noted Date Comments Epinephrine Palpitations Low 03/01/2023 Medications dilTIAZem (CARDIZEM CD) 120 MG 24 hr capsule Take 120 mg by mouth. 3 Active metoprolol succinate (TOPROL-XL) 50 MG 24 hr tablet Take 50 mg by mouth daily. Active hydrOXYzine (VISTARIL) 25 MG capsule Take 25 mg by mouth nightly at bedtime as needed for itching. Active aspirin 81 MG EC tablet Take 81 mg by mouth. 4 Active HYDREA 500 mg capsule Take 1 capsule by mouth. 4 Active vit A/vit C/vit E/zinc/copper (PRESERVISION AREDS ORAL) Take by mouth 2 (two) times a day. Active DULoxetine (CYMBALTA) 20 MG capsule Take 1 capsule (20 mg total) by mouth 2 (two) times a day. 180 capsule 1 5 Active calcium carbonate-vitam in D3 1,500 mg (600 mg elemental)-200 units Tab Take 1 tablet by mouth daily. 09/13/19 25 Discontinu ed(No longer taking) estradioL (ESTRACE) 0.01 % (0.1 mg/gram) vaginal cream 3 times a week 3 09/13/19 25 Discontinu ed(No longer taking) methylcellulose , laxative, (CITRUCEL) Powd Take 2 g by mouth daily. 09/13/19 Discontinu ed(No longer taking) acetaminophen (TYLENOL) 650 MG CR tablet Take 650 mg by mouth. 09/13/19 Discontinu ed(No longer taking) magnesium 250 mg Tab Take by mouth. 09/13/19 Discontinu ed(No longer taking) DULoxetine (CYMBALTA) 20 MG capsule Take 1 capsule (20 mg total) by mouth 2 (two) times a day. 60 capsule 2 5 09/13/19 Discontinu ed(Reorder ) Active Problems Problem Noted Date Diagnosed Date Primary osteoarthritis involving multiple joints 03/01/2023 Assessment & Plan (09/06/2023 3:52 PM EDT): Osteoarthritis in multiple joints well-controlled with no stiffness or swelling. She does not need labs drawn today. I have asked her to use Tylenol [address] of diclofenac if possible. I also asked her to increase her daily intake of water and to remain active. Assessment & Plan (03/01/2023 11:13 AM EST): Degenerative osteoarthritis in multiple areas very well-controlled on diclofenac 75 mg once a day in the morning. She is tolerating the medication with no side effects. She also takes Tylenol as needed prior to bedtime. Advised her to remain active to maintain her stamina and exercise tolerance. Sent her for some baseline labs today. Encounters Date Type Department Care Team Description 09/12/2024 11:00 AM EDT Office Visit [facility] Rheumatology [address] [place] [address] Tess Kirk MD Primary osteoarthritis involving multiple joints (Primary Dx); Chronic pain syndrome 09/12/2024 Telephone [facility] Rheumatology [address] [place] [address] Wenceslao Aquino MD Appointment from Last 3 Months Family History Medical History Relation Comments Heart failure Father Cancer Mother colon Relation Status Comments Father Mother Social History Tobacco Use Types Packs/Day Years [...] Sign Reading Time Taken Comments Blood Pressure 136/60 09/12/2024 10:47 AM EDT Pulse 70 09/12/2024 10:47 AM EDT Temperature - - Respiratory Rate - - Oxygen Saturation 98% 09/12/2024 10:47 AM EDT Inhaled Oxygen Concentration - - Weight 53.5 kg (118 lb) 09/12/2024 10:47 AM EDT Height 152.4 cm (5') 09/02/2023 4:26 PM EDT Body Mass Index 23.05 09/02/2023 4:26 PM EDT Plan of Treatment Health Maintenance Due Date Last Done Comments Adult Td,Tdap Booster 1935 DEPRESSION SCREENING 1947 PNEUMOCOCCAL VACCINES (50+ years) (1 of 1 - PCV) 04/27/1985 ZOSTER VACCINES (1 of 2) 04/27/1985 OSTEOPOROSIS SCREENING INITIAL (ONE-TIME) 04/27/2000 COVID-19 VACCINE ( season) 2024 11/07/2023, 11/21/2022, 12/18/2021, Additional history exists RSV VACCINE Completed 10/03/2023 HEPATITIS A VACCINES Aged Out No long er eligible based on patient's age to complete this topic HIB VACCINES Aged Out No longer eligi ble based on patient's age to complete this topic MENINGOCOCCAL VACCINES (ACWY) Aged Out No longer eligible based on patient's age to complete this topic MENINGOCOCCAL VACCINES (B) Aged Out N o longer eligible based on patient's age to complete this topic Medical Devices Not on file Insurance MEDICARE PART A & B Oxxy MEDEX SUPPLEMENT MEDICARE PART A & B Oxxy MEDEX SUPPLEMENT MEDICARE PART A & [place] [address] [place] [address] MEDEX SUPPLEMENT MEDICARE PART A & B [employer] CR[employer] MEDEX SUPPLEMENT MEDICARE PART A & B [employer] MEDEX SUPPLEMENT MEDICARE PART A & B Oxxy MEDEX SUPPLEMENT MEDICARE PART A & B Oxxy MEDEX SUPPLEMENT MEDICARE PART A & B Oxxy MEDEX SUPPLEMENT MEDICARE PART A & B Oxxy MEDEX SUPPLEMENT Care Teams Director Of Public Relations Relationship Specialty Start Date End Date Wenceslao Aquino MD [address] [facility] [address] [place] [address] PCP - General Internal Medicine 08/29/18 Additional Source Comments The information contained in this document represents components of the legal health record. It is not the complete legal health record.[facility]
--- OUTSIDE RECORDS SUMMARY | 2024-09-25 14:15 | XMS_ITS | Clinical Summary ---
Author Organization [facility] Address [address] [place] [address] Care Team Providers Care Grocery Store Clerk Name Role Phone Wenceslao Aquino MD Primary Care Provider [phone] Allergies Active Allergy Reactions Criticality Noted Date [...] (two) times a day. 0 Active b ywnbwcj-G-hqfyv acid 1 MG capsule Take 1 capsule [...] age to complete this topic Care Teams Grocery Store Clerk Relationship Specialty Start Date End Date Wenceslao Aquino MD [address] [facility] [address] [place] [address] PCP - General [employer] 08/22/18
--- OUTSIDE RECORDS SUMMARY | 2024-09-25 14:15 | XMS_ITS | Clinical Summary ---
Author Organization [address] Address [address] [place] [phone] Phone Care Team Providers Care Keypunch Operator Name Role Phone Wenceslao Aquino MD Primary Care Provider [phone] Allergies Active Allergy Reactions Criticality Noted Date Comments Yasmany Inhibitors 08/28/2018 Adhesive Tape-Silicones Rash 01/09/2024 Ephedrine Palpitations 08/29/2018 Epinephrine Palpitations Low 03/01/2023 Mirabegron 08/29/2018 Nitrofurantoin Monohyd/M-Cryst Headache,Nausea And Vomiting 11/08/2022 Pollen Extracts 01/09/2024 Medications atorvastatin (LIPITOR) 10 mg tablet Take 1 Tablet by mouth daily. Active calcium carbonate-vitam in D3 600 mg-5 mcg (200 unit) per tablet 1 TABLET DAILY Active chlorthalidone (HYGROTON) 25 mg tablet Take 25 mg by mouth daily. Active cholecalciferol (VITAMIN D3) 10 mcg/mL (400 unit/mL) liquid Take by mouth. Active ciclopirox (LOPROX) 0.77 % cream 05/30/2018 Active diclofenac (VOLTAREN) 75 mg EC tablet 11/05/2022 Active dilTIAZem XR (DILT-XR) 180 mg 24 hr capsule Take by mouth. Active estradioL (ESTRACE) 0.01 % (0.1 mg/gram) vaginal cream Apply 0.5 g nightly for two weeks, then MWF 07/09/2022 Active fluconazole (DIFLUCAN) 150 mg tablet Take 1 tablet once by mouth. 03/08/2023 Active magnesium 250 mg tablet Take by mouth. Active methenamine hippurate (HIPREX) 1 gram tablet Take 1 tablet by mouth once daily 05/23/2023 Active metoprolol succinate (TOPROL-XL) 50 mg 24 hr tablet Take 50 mg by mouth daily. Active multivitamin (MULTIPLE VITAMINS ORAL) 1 tablet daily Active potassium acetate, bulk, 100 % powder Active potassium chloride 20 mEq tablet extended release 09/22/2022 Active polyethylene glycol (Miralax) 17 gram packet Active aspirin 81 mg EC tablet Take 1 tablet (81 mg total) by mouth 1 (one) time each day. Active hydrOXYzine HCL (ATARAX) 25 mg tablet Take 1 tablet (25 mg total) by mouth. 04/19/2023 Active vit A/vit C/vit E/zinc/copper (PRESERVISION AREDS ORAL) Take by mouth. Active hydroxyurea (HYDREA) 500 mg capsule Take by mouth 1 (one) time each day Take at the same time each day. Active acetaminophen (TYLENOL 8 HOUR) 650 mg 8 hr tablet Take 1 tablet (650 mg total) by mouth every 8 (eight) hours if needed for mild pain. Do not crush, chew, or split. Active DULoxetine (CYMBALTA) [address] capsule Take 1 capsule (20 mg total) by mouth 1 (one) time each day. Do not crush or chew. Active Active Problems Problem Noted Date Diagnosed Date Anxiety 08/13/2024 Atherosclerosis of artery of both lower extremities ([facility] V24) 08/13/2024 Chronic anemia 08/13/2024 Chronic back pain 08/13/2024 Leukocytosis 08/13/2024 Osteoarthritis 08/13/2024 Thrombocytosis 08/13/2024 Ureterolithiasis 08/13/2024 Other hyperlipidemia 01/08/2024 Other secondary hypertension 01/08/2024 CKD (chronic kidney disease) stage 3, GFR 30-59 ml/min ([facility] V24, [facility] V28) 01/08/2024 Acute pancreatitis 12/29/2023 Primary osteoarthritis involving multiple joints 03/01/2023 Lower urinary tract symptoms 09/07/2022 Overview (12/22/2023): Last Assessment & Plan: Can discuss treatment of these symptoms with Urogyn as well. May need UDS. Vaginal irritation 09/07/2022 Overview (12/22/2023): Last Assessment & Plan: Unclear if related to pessary. No evidence of infection. Recommended removal of pessary and consult with Urogyn for other possible treatments of her prolapse. She agreed. She was informed that she should hear back in 1-2 weeks with an appointment date. If not, she should call back to our office and inquire on getting this arranged. She voiced understanding and agreed. 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 Definitely a component of atrophy. 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 We will start by treating the atrophy and she will return to see if we should start a topical steroid. Acute cystitis with hematuria 04/08/2022 Overview (12/22/2023): Last Assessment & Plan: Treated presumptively with Bactrim. Will send C&S and foreign exchange position clerk prn. Pelvic pressure in female 04/08/2022 Overview (12/22/2023): Last Assessment & Plan: May have improvement of this and irritative voiding sx with use of Estrace. 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 She cannot give us any more than the few drops given for dip, so we cannot send a culture. Will treat presumptively and she will call in if sx do not resolve. Given can still empty bladder, will continue with pessary. If not improving, could consider restarting the Estrace cream. Vaginal atrophy 03/31/2020 Overview (12/22/2023): Last Assessment & Plan: Add back Estrace cream with her finger. Wait until Tuesday to start given has an open fissure. Explained may burn initially, but will improve. 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 Encounters Date Type Department Care Team Description 08/17/2024 Telephone Gastroenterology - [address] [place] [phone] Kay Hamilton MA 08/15/2024 Telephone Gastroenterology - [address] [place] [phone] Kiesha yBrd [place] 08/14/2024 1:30 PM EDT Office Visit Gastroenterology - [address] [phone] Jaclyn Snow PA Diarrhea of presumed infectious origin (Primary Dx); Jaundice; Small intestinal bacterial overgrowth, unspecified 08/13/2024 Telephone Gastroenterology - [address] [phone] Feng Sandoval MD Advice Only 07/27/2024 10:50 AM EDT Office Visit Gastroenterology - [address] [place] [phone] Feng Sandoval MD Jaundice (Primary Dx) from Last 3 Months Surgical History Surgery Date Site/Laterality Comments HYSTERECTOMY 1968 PROCEDURE: HISTORICAL HYSTERECTOMY VAGINAL DELIVERY PROCEDURE: PA VAGINAL DELIVERY ONLY; COMMENT: x4 TONSILLECTOMY ADENOIDECTOMY, BILATERAL MYRINGOTOMY AND TUBES age 5 PROCEDURE: PA TONSILLECTOMY & ADENOIDECTOMY <AGE 12 CHOLECYSTECTOMY PROCEDURE: PA CHOLECYSTECTOMY OTHER SURGICAL HISTORY 09/2006 PROCEDURE: PA ARTHRODESIS ANTERIOR SPINAL DFRM 4-7 VRT SGM HIP ARTHROPLASTY 01/2013 Left PROCEDURE: HISTORICAL HIP REPLACEMENT HIP ARTHROPLASTY 09/2013 Right PROCEDURE: HISTORICAL HIP REPLACEMENT CATARACT EXTRACTION 2014 Bilateral PROCEDURE: HISTORICAL CATARACT REMOVAL BREAST BIOPSY 2007 Left PROCEDURE: BX BREAST; PERC NEEDLE CORE W/IMAG GUID; COMMENT: b9 COLONOSCOPY 01/08/2020 ERCP 06/07/2024 - 07/07/2024 Medical History Medical History Date Comments Essential hypertension, benign D X:Essential hypertension, benign Generalized osteoarthrosis, unspecified site DX:Generalized osteoarthrosi s, unspecified site Anxiety 08/13/2024 Chronic anemia 08/13/2024 Family History Medical History Relation Name Comments Breast cancer Aunt mat Diabetes Father onset/ Hypertension Father Hypertension Mother Other cancer Mother bowel Relation Name Status Comments Aunt mat Daughter Alive x2 Father (Age 85) Maternal Grandfather Maternal Grandmother Mother (Age 71) Paternal Grandfather Paternal Grandmother Sister Alive Son Alive x2 Social History Tobacco Use Types Packs/Day Years Used Date Smoking Tobacco: Never Smokeless Tobacco: Never Tobacco Cessation:Counseling Given: Not Answered Alcohol Use Standard Drinks/Week Comments Not Currently 0 (1 standard drink = 0.6 oz pur e alcohol) Comments No Sex and Gender Information Value Date Recorded Sex Assigned at Female 07/17/2024 8:48 AM EDT Legal Sex Female 9:27 PM EST Gender Identity Female 07/17/2024 8:48 AM EDT Sexual Orientation Not on file Obstetrics History Para Term AB IAB SAB Ectopic Multiple Livin g Live Births 4 4 4 4 Date Outcome GA Total Labor Labor/2nd/3rd Weight Sex Type Anes PTL Beverly A1 A5 Name Clin Term Term Term Term Last Filed Vital Signs Vital Sign Reading Time Taken Comments Blood Pressure 166/100 02/07/2024 11:35 AM EST Pulse 114 02/07/2024 11:35 AM EST Temperature - - Respiratory Rate 14 02/07/2024 11:35 AM EST Oxygen Saturation - - Inhaled Oxygen Concentration - - Weight 54.9 kg (121 lb) 08/14/2024 1:16 PM EDT Height 152.4 cm (5') 08/14/2024 1:16 PM EDT Body Mass Index 23.63 08/14/2024 1:16 PM EDT Plan of Treatment Upcoming Encounters Date Type Department Care Team (Late st Contact Info) Description 10/12/2024 1:00 PM EDT Office Visit Gastroenterology - [address] [phone] Jaclyn Snow PA [address] [facility] [address] [phone] 04/22/2025 10:30 AM EDT Appointment Radiology Department - [address] [phone] 04/22/2025 10:55 AM EDT Appointment Radiology Department - [address] [phone] Health Maintenance Due Date Last Done Comments DTaP,Tdap,and Td Vaccines (1 - Tdap) 04[birth year]27/1954 Zoster Vaccines (1 of 2) 04/27/1954 Pneumococcal Vaccine: 50+ Years (1 of 1 - PCV) 04/27/1985 Cholesterol Screening (Lipid Panel) 01/16/2022 Falls Risk Assessment 01/16/2022 Social Influencers of Health Screening 01/16/2022 Medicare Annual Wellness Visit 06/08/2023 06/07/2022 Depression Screening 02/08/2024 COVID-19 Vaccine (8 - Pfizer risk 2023- season) 2024 11/07/2023, 11/21/2022, 12/18/2021, Additional history exists Influenza Vaccine (#1) 2024 , 10/13/2022, 12/18/2021, Additional history exists Hypertension/CHF/CAD Annual BMP Blood Test 08/14/2025 08/14/2024, 03/01/2023, 03/01/2023 Osteoporosis Screening (Bone Density Screening) 07/11/2028 07/11/2018 RSV Immunization Adult Patients Completed 10/03/2023 HIB Vaccines Aged Out No longer eligi ble based on patient's age to complete this topic HPV Vaccines Aged Out No longer eligi ble based on patient's age to complete this topic Hepatitis A Vaccines Aged Out No long er eligible based on patient's age to complete this topic Hepatitis B Vaccines Aged Out No long er eligible based on patient's age to complete this topic IPV Vaccines Aged Out No longer eligi ble based on patient's age to complete this topic MMR Vaccines Aged Out No longer eligi ble based on patient's age to complete this topic Meningococcal ACWY Vaccine Aged Out N o longer eligible based on patient's age to complete this topic Meningococcal B Vaccine Aged Out No l onger eligible based on patient's age to complete this topic RSV Immunization Patients Under 20 months Aged Out No longer eligible based on patient's age to complete this topic Varicella Vaccines Aged Out No longer eligible based on patient's age to complete this topic Procedures Procedure Name Priority Date/Time Associated Diagnosis Comments CLOSTRIDIUM DIFFICILE PCR Routine 08/15/2024 8:46 AM EDT Diarrhea of presumed infectious origin GASTROINTESTINAL PATHOGENS BY PCR Routine 08/15/2024 8:46 AM EDT Diarrhea of presumed infectious origin Small intestinal bacterial overgrowth, unspecified CLOSTRIDIUM DIFFICILE TOXIN Routine 08/15/2024 8:46 AM EDT Diarrhea of presumed infectious origin COMPREHENSIVE METABOLIC PANEL Routine 08/14/2024 2:37 PM EDT Diarrhea of presumed infectious origin EXTERNAL COLONOSCOPY REPORT Routine 07/25/2024 4:15 PM EDT DXA BONE DENSITY STUDY 1+ SITS AXIAL SKEL Routine 07/11/2018 11:12 AM EDT Menopausal and female climacteric states from Last 3 Months or Most Recently Relevant to Health Maintenance Results * Gastrointestinal pathogens molecular study (08/15/2024 8:46 AM EDT) Campylobacter Detection by PCR Not Detected Not Detected LAB MICROBIOLOGY METHOD 5 11:47 AM EDT [facility] Plesiomonas shigelloides Detection by PCR Not Detected Not Detected LAB MICROBIOLOGY METHOD 5 11:47 AM EDT [facility] Salmonella Detection by PCR Not Detected Not Detected LAB MICROBIOLOGY METHOD 5 11:47 AM EDT [facility] Vibrio Detection by PCR Not Detected Not Detected LAB MICROBIOLOGY METHOD 5 11:47 AM EDT [facility] Vibrio cholerae Detection by PCR Not Detected Not Detected LAB MICROBIOLOGY METHOD 5 11:47 AM EDT [facility] Yersinia enterocolitica Detection by PCR Not Detected Not Detected LAB MICROBIOLOGY METHOD 5 11:47 AM [facility] Enteroaggregative E coli EAEC Detection by PCR Not Detected Not Detected LAB MICROBIOLOGY METHOD 5 11:47 AM [facility] Enteropathogenic E coli EPEC Detection Not Detected Not Detected LAB MICROBIOLOGY METHOD 5 11:47 AM [facility] Enterotoxigenic E coli ETEC LTST Detection Not Detected Not Detected LAB MICROBIOLOGY METHOD 5 11:47 AM [facility] Shiga-like toxin producing E coli STEC STX1 STX2 Det Not Detected Not Detected LAB MICROBIOLOGY METHOD 5 11:47 AM [facility] Shigella Enteroinvasive E coli EIEC Detection Not Detected Not Detected LAB MICROBIOLOGY METHOD 5 11:47 AM [facility] Cryptosporidium Detection by PCR Not Detected Not Detected LAB MICROBIOLOGY METHOD 5 11:47 AM [facility] Cyclospora cayetanensis Detection by PCR Not Detected Not Detected LAB MICROBIOLOGY METHOD 5 11:47 AM [facility] Entamoeba histolytica Detection by PCR Not Detected Not Detected LAB MICROBIOLOGY METHOD 5 11:47 AM [facility] Giardia lamblia Detection by PCR Not Detected Not Detected LAB MICROBIOLOGY METHOD 5 11:47 AM [facility] Adenovirus F 40 41 Detection by PCR Not Detected Not Detected LAB MICROBIOLOGY METHOD 5 11:47 AM [facility] Astrovirus Detection by PCR Not Detected Not Detected LAB MICROBIOLOGY METHOD 5 11:47 AM [facility] Norovirus GI GII Detection by PCR Detected LAB MICROBIOLOGY METHOD 5 11:47 AM [facility] Sapovirus Detection by PCR Not Detected Not Detected LAB MICROBIOLOGY METHOD 11:47 AM EDT [facility] Rotavirus A Detection by PCR Not Detected Not Detected LAB MICROBIOLOGY METHOD 11:47 AM EDT [facility] Stool Rectum structure / Unknown Non-blood Collection / Unknown 08/15/2024 8:46 AM EDT 08/15/2024 8:46 AM EDT Narrative [facility] - 08/15/2024 11:47 AM EDT PCR testing is much more sensitive than traditional techniques and allows for the detection of low numbers of stool pathogens. The clinical correlation of PCR results with the need for treatment and clinical outcomes has not been established. Therefore the results of PCR testing for stool pathogens must be taken into clinical context when making treatment decisions. This is a diagnostic test only, repeat testing for cure is not advised. You may consider infectious disease consult for additional guidance. Testing Performed by [facility] Jaclyn AYALA LAB MICROBIOLOGY - GENERAL ORDE [employer] Final Result Performing Organization Address [facility]/ZIP Co de Phone Number [facility] [address] [place] [address], * Clostridium difficile molecular study (08/15/2024 8:46 AM EDT) Clostridium difficile PCR Negative Negative LAB MICROBIOLOGY METHOD 08/15/2024 11:58 AM EDT [facility] Comment:NEGATIVE FOR TOXIN P RODUCING CLOSTRIDIOIDES DIFFICILE, NO ADDITIONAL TESTING IS NECESSARY. Stool Rectum structure / Unknown Non-blood Collection / Unknown 08/15/2024 8:46 AM EDT 08/15/2024 11:15 AM EDT Jaclyn AYALA LAB MICROBIOLOGY - GENERAL ORDE [employer] Final Result Performing Organization Address City/[facility]/ZIP Co de Phone Number [facility] [address] [place] [address], * Clostridium difficile toxin (08/15/2024 8:46 AM EDT) C difficile Toxins A+B, EIA 08/15/2024 11:17 AM EDT [facility] Comment:Refer to C. difficil e PCR assay for results. Stool Rectum structure / Unknown Non-blood Collection / Unknown 08/15/2024 8:46 AM EDT 08/15/2024 8:46 AM EDT us Jaclyn AYALA LAB MICROBIOLOGY - GENERAL MICHELL MONTANO Final Result [facility] [address] [place] [address], [place] [phone] * (ABNORMAL) Comprehensive metabolic panel (08/14/2024 2:37 PM EDT) Pathologist [facility] [place] Sodium 138 133 - 145 mmol/L LAB CHEMISTRY METHOD 08/14/2024 6:01 PM [facility] Potassium 3.5 3.5 - 5.5 mmol/L LAB CHEMISTRY METHOD 08/14/2024 6:01 PM [facility] Chloride 105 96 - 110 mmol/L LAB CHEMISTRY METHOD 08/14/2024 6:01 PM [facility] CO2 29 21 - 32 mmol/L LAB CHEMISTRY METHOD 08/14/2024 6:01 PM [facility] Anion Gap 4 3 - 11 LAB CHEMISTRY METHOD 08/14/2024 6:01 PM [facility] Glucose 113(H) 70 - 100 mg/dL LAB CHEMISTRY METHOD 08/14/2024 6:01 PM [facility] BUN 15 5 - 25 mg/dL LAB CHEMISTRY METHOD 08/14/2024 6:01 PM [facility] Creatinine 1.01 0.50 - 1.10 mg/dL LAB CHEMISTRY METHOD 08/14/2024 6:01 PM [facility] eGFR 53(L) >=60 mL/min/1. 73m2 LAB CHEMISTRY METHOD 08/14/2024 6:01 PM T [facility] Comment:Calculation based on the Chronic Kidney Disease Epidemiology Collaboration (CKD-EPI) equation refit without adjustment for race. BUN/Creatinine Ratio 14.9 LAB CHEMISTRY METHOD 08/14/2024 6:01 PM [facility] Calcium 9.8 8.5 - 10.5 mg/dL LAB CHEMISTRY METHOD 08/14/2024 6:01 PM [facility] AST (SGOT) 19 10 - 42 unit/L LAB CHEMISTRY METHOD 08/14/2024 6:01 PM [facility] ALT (SGPT) 23 10 - 60 unit/L LAB CHEMISTRY METHOD 08/14/2024 6:01 PM [facility] Alkaline Phosphatase 64 42 - 121 unit/L LAB CHEMISTRY METHOD 08/14/2024 6:01 PM [facility] Total Protein 6.9 6.0 - 8.0 g/dL LAB CHEMISTRY METHOD 08/14/2024 6:01 PM [facility] Albumin 4.0 3.2 - 5.0 g/dL LAB CHEMISTRY METHOD 08/14/2024 6:01 PM [facility] Total Bilirubin 0.5 0.0 - 1.4 mg/dL LAB CHEMISTRY METHOD 08/14/2024 6:01 PM [facility] Blood Venous blood specimen / Unknown Venipuncture / Unknown 08/14/2024 2:37 PM EDT 08/14/2024 3:30 PM EDT us Jaclyn AYALA LAB BLOOD ORDERABLES Final Resu lt [facility] [address] [place] [address], * External Colonoscopy Report (07/25/2024 4:15 PM EDT) Anatomical Region Laterality Modality Endoscopy us Historical Provider MD GARCIA~PROCEDURE ORDERABLES F inal Result * DXA BONE DENSITY STUDY 1+ SITS AXIAL SKEL (07/11/2018 11:12 AM EDT) Anatomical Region Laterality Modality Bone Densitometr y 06/12/2018 2:00 PM EDT Narrative 07/11/2018 1:38 PM EDT BONE DENSITY Lumbar Spine T-score is -1.8 (SD relative to 20-29 y/o adult) Z-score is +1.3 (SD relative to age matched peers) This is consistent with osteopenia by criteria defined by the WHO. Left Wrist T-score is -1.4 Z-score is +2.0 This is consistent with osteopenia by criteria defined by the WHO. Comparison exam(s): significant increase in bone density of lumbar spine when compared to most recent bone density examination Confidence level is +/-95%. Impression: Based on the World Health Organization criteria, Rafia Edwards should be classified as having osteopenia. The [facility] Department of Internal Medicine recommends using National Osteoporosis Foundation (NOF) guidelines in treatment decisions related to osteoporosis. NOF guidelines suggest considering treatment for postmenopausal women and men aged 50 or older presenting with the following: History of hip or vertebral fracture. T-score less than or equal to -2.5 (DXA) at the femoral neck, total hip, or spine, after appropriate evaluation to exclude secondary causes. Low bone mass (T-score between -1.0 and -2.5 at the femoral neck or spine) AND a 10-year probability of a hip fracture greater than or equal to 3% OR a 10-year probability of a major osteoporosis-related fracture greater than or equal to 20% based on the [place]-adapted WHO algorithm Please note that all treatment decisions require clinical judgment and consideration of individual patient factors, including patient preferences, co-morbidities, previous drug use, risk factors not captured in the FRAX model (e.g., frailty, falls, vitamin D deficiency, increased bone turnover, interval significant decline in bone density) and possible under- or over-estimation of fracture risk by FRAX. Procedure Note Dennis Restrepo - 01/26/2022 BONE DENSITY Lumbar Spine T-score is -1.8 (SD relative to 20-29 y/o adult) Z-score is +1.3 (SD relative to age matched peers) This is consistent with osteopenia by criteria defined by the WHO. Left Wrist T-score is -1.4 Z-score is +2.0 This is consistent with osteopenia by criteria defined by the WHO. Comparison exam(s): significant increase in bone density of lumbar spinewhen compared to most recent bone density examination Confidence level is +/-95%. Impression: Based on the World Health Organization criteria, Rafia Edwards should beclassified as having osteopenia. The [facility] Department of Internal Medicine recommendsusing National Osteoporosis Foundation (NOF) guidelines in treatmentdecisions related to osteoporosis. NOF guidelines suggest consideringtreatment for postmenopausal women and men aged 50 or older presentingwith the following: History of hip or vertebral fracture. T-score less than or equal to -2.5 (DXA) at the femoral neck, total hip,or spine, after appropriate evaluation to exclude secondary causes. Low bone mass (T-score between -1.0 and -2.5 at the femoral neck or spine)AND a 10-year probability of a hip fracture greater than or equal to 3% ORa 10-year probability of a major osteoporosis-related fracture greaterthan or equal to 20% based on the [place]-adapted WHO algorithm Please note that all treatment decisions require clinical judgment andconsideration of individual patient factors, including patientpreferences, co-morbidities, previous drug use, risk factors not capturedin the FRAX model (e.g., frailty, falls, vitamin D deficiency, increasedbone turnover, interval significant decline in bone density) and possibleunder- or over-estimation of fracture risk by FRAX. Wenceslao Woods MD IM DXA PROCEDURES Final Result from Last 3 Months or Most Recently Relevant to Health Maintenance [place] [phone] MEDICARE [facility] Care Teams Keypunch Operator Relationship Specialty Start Date End Date Wenceslao Aquino MD [facility] [place] [address] PCP - General Control Electrician 08/22/18
--- OUTSIDE RECORDS SUMMARY | 2024-09-25 14:15 | XMS_ITS | Patient Health Record ---
Author Organization [facility] Address [address] [facility] [place] [address] Care Team Providers Care Principal Software Engineer Name Role Phone Wenceslao Aquino MD Primary Care Provider Dallin Sharpe Unavailable [phone] Allergies Allergen (clinical drug ingredient) Drug/Non Drug [...] atherosclerosis of arteries of lower limbs (disorder) ([id number] ) Atherosclerosis of [place] artery of both lower extremities, with unspecified presence of clinical manifestation (I70.203) Active confirmed Vital Signs Blood pressure diastolic 70 mm Hg 05/15/2024 Height 5 ft 1.5 in in 05/15/2024 Blood pressure systolic 120 mm Hg 05/15/2024 Weight 120 lbs 05/15/2024 BMI 22.3 kg/m2 05/15/2024 Procedures Procedure Date Ordered Date Performed Result Body Sit e 26933-HUCVOKT NAIL, 6 OR MORE 11/04/2023 N/A 84528-PZCU SKIN LESIONS, OVER 4 11/04/2023 N/A 81793-PFQPTWJ NAIL, 6 OR MORE 02/14/2024 N/A 75262-BBRO SKIN LESIONS, OVER 4 02/14/2024 N/A 70643-JUFISWH NAIL, 6 OR MORE 05/15/2024 N/A 19177-MADX SKIN LESIONS, OVER 4 05/15/2024 N/A Encounters Encounter Location Date Provider Diagnosis [facility] [place] [address] [place] [address] 11/04/2023 Dallin Alvarado Atherosclerosis of [place] artery of both lower extremities, with unspecified presence of clinical manifestation I70.203 ; Onychomycosis B35.1 ; Pain of toe of right foot M79.674 ; Pain of toe of left foot M79.675 and Xerosis of skin L85.[address] [address] 02/14/2024 Dallin Alvarado Atherosclerosis of [place] artery of both lower extremities, with unspecified presence of clinical manifestation I70.203 ; Onychomycosis B35.1 ; Pain of toe of right foot M79.674 ; Pain of toe of left foot M79.675 and Xerosis of skin L85.[address] [address] 05/15/2024 Dallin Alvarado Atherosclerosis of [place] artery of both lower extremities, with unspecified presence of clinical manifestation I70.203 ; Onychomycosis B35.1 ; Pain of toe of right foot M79.674 and Pain of toe of left foot M79.[address] [address] 08/20/2024 Dallin Alvarado Assessments Encounter Date Diagnosis (ICD Code) Assessment Notes Treatment Notes Treatment Clinical Notes Section Notes 11/04/2023 Onychomycosis (ICD-10 - B35.1) 11/04/2023 Atherosclerosis of [place] artery of both lower extremities, with unspecified presence of clinical manifestation (ICD-10 - I70.203) 02/14/2024 Onychomycosis (ICD-10 - B35.1) 02/14/2024 Atherosclerosis of [place] artery of both lower extremities, with unspecified presence of clinical manifestation (ICD-10 - I70.203) 05/15/2024 Onychomycosis (ICD-10 - B35.1) 05/15/2024 Atherosclerosis of [place] artery of both lower extremities, with unspecified [...] Treatment Pending Test Test Name Order Date 97320-QQVDFQE NAIL, 6 OR MORE 11/18/2017 54999-JCCVNCT NAIL, 6 OR MORE 03/14/2018 95524-MSNREVX NAIL, 6 OR MORE 06/13/2018 10469-MAVKRCZ NAIL, 6 OR MORE 09/12/2018 09303-ADWQFSB NAIL, 6 OR MORE 12/12/2018 08832-KKWYFOL NAIL, 6 OR MORE 03/20/2019 09089-RVDMUVB NAIL, 6 OR MORE 06/19/2019 84408-INJGWCB NAIL, 6 OR MORE 09/21/2019 34560-SRVVKFB NAIL, 6 OR MORE 12/21/2019 59986-ZNDYGHI NAIL, 6 OR MORE 03/25/2020 98425-FQPVMRN NAIL, 6 OR MORE 06/24/2020 27662-PNRSAQT NAIL, 6 OR MORE 09/23/2020 66858-USATIZA NAIL, 6 OR MORE 12/23/2020 97444-EVIYPKN NAIL, 6 OR MORE 03/24/2021 88308-YRUFDAL NAIL, 6 OR MORE 06/23/2021 02126-JZADRAN NAIL, 6 OR MORE 09/15/2021 32944-MAUTUMP NAIL, 6 OR MORE 01/12/2022 42044-JBMYGKF NAIL, 6 OR MORE 05/11/2022 11383-TAZLVKW NAIL, 6 OR MORE 08/13/2022 89423-DSBWANH NAIL, 6 OR MORE 11/23/2022 18187-PQWGCTS NAIL, 6 OR MORE 02/25/2023 93362-QERPXZJ NAIL, 6 OR MORE 08/02/2023 99907-RBGFSPO NAIL, 6 OR MORE 11/04/2023 12045-OPCEQSP NAIL, 6 OR MORE 02/14/2024 63785-WNECETX NAIL, 6 OR MORE 05/15/2024 91678-UHLI SKIN LESIONS, OVER 4 05/16/19 72088-ZTVO SKIN LESIONS, OVER 4 02/13/19 25 04026-FZDD SKIN LESIONS, OVER 4 11/04/19 24 78081-NMZQ SKIN LESIONS, OVER 4 08/02/19 24 86413-PKBW SKIN LESIONS, OVER 4 02/25/19 24 29742-JCRE SKIN LESIONS, OVER 4 11/24/19 23 50019-LRWT SKIN LESIONS, OVER 4 08/14/19 23 83842-ULZK SKIN LESIONS, OVER 4 05/12/19 23 63998-UOGL SKIN LESIONS, OVER 4 01/13/20 22 10652-ENHA SKIN LESIONS, OVER 4 09/16/19 22 23055-IXER SKIN LESIONS, OVER 4 06/24/19 22 31163-EFWT SKIN LESIONS, OVER 4 03/24/19 01055- Biopsy of skin lesion 10/14/2017 Next Appt Details Provider Name:Dallin Alvarado , 11/09/2024 10:45:00 AM, [address] [place] [address], [address], Insurance Providers Payer Name Payer Address Payer Phone Subscriber Number Group Number Insured Name Patient Relationship to Insured Coverage Start Date Coverage End Date Medicare National [facility] [address] [facility] [place] [address] [id number] Alessandra Edwards Self - patient is the insured 4 [employer] [address] [place] [address] [id number] Alessandra Edwards Self - patient is the [...]
== END 2024-09-25 13:52 | disposition home or self-care (01) ==
LOC: HO.HSM 13:06
PROVIDERS: PCP Internal Medicine; Visit Provider Psychiatry & Neurology Neurology
DX: G30.1 Alzheimer's disease with late onset (principal); F02.A4 Dementia in other diseases classified elsewhere, mild, with anxiety; H91.90 Unspecified hearing loss, unspecified ear
CPT/HCPCS: 99204

== ENCOUNTER → 2024-09-25 13:06 | Outpatient (BNVA) | payer MEDICARE, SELFPAY | PROVIDERS: PCP Internal Medicine; Visit Provider Psychiatry & Neurology Neurology | DX: G30.1 Alzheimer's disease with late onset (principal); F02.A4 Dementia in other diseases classified elsewhere, mild, with anxiety; H91.90 Unspecified hearing loss, unspecified ear | CPT/HCPCS: 99202 ==

== ENCOUNTER 2024-10-29 14:36 | Outpatient (REF) | payer MEDICARE, SELFPAY ==
[2024-10-29 16:30] LABS: Folate 13.8 ng/mL (> or = 4.0); Vitamin B12 414 pg/mL (200-900)
== END 2024-10-29 14:37 | disposition home or self-care (01) ==
LOC: HO.LAB 14:36
PROVIDERS: PCP Internal Medicine; Visit Provider Psychiatry & Neurology Neurology
DX: G30.1 Alzheimer's disease with late onset (principal); F02.A4 Dementia in other diseases classified elsewhere, mild, with anxiety; Z79.899 Other long term (current) drug therapy
CPT/HCPCS: 36415; 82607; 82746; 99212

== ENCOUNTER 2024-10-29 14:36 | Outpatient (AMB) | payer MEDICARE, SELFPAY ==
--- NOTE | 2024-10-29 14:49 | MHC.OFFVIS ---
Intake Visit Reasons: 1m AD Allergies perfume Allergy (Unknown, Verified 08/29/24 15:57) UNKNOWN [email or web address] (From Myrbetriq) Adverse Reaction (Intermediate, Verified 08/29/24 15:57) Nausea Medication List - Last Reconciled 10/29/24 by Dutch Canales MD aspirin 81 mg PO DAILY cefuroxime axetil 500 mg PO BID diltiazem HCl ER 120 mg PO DAILY donepezil 5 mg PO DAILY duloxetine 20 mg PO BID hydroxyurea 500 mg PO DAILY hydroxyzine pamoate 25 mg PO TID PRN metoprolol succinate ER 50 mg PO DAILY vitamins A,C,J-bcuw-xrolyu 4,296 mcg-226 mg-90 mg (PreserVision AREDS) 1 cap PO BID HPI Comments Details: The patient is an 89-year-old female presenting with memory impairment. She reports some improvement in her cognitive function since the last visit but acknowledges that her memory is not optimal. Currently, she is on donepezil 5 mg for memory issues, which is scheduled to be increased to 10 mg per day. A Vitamin B12 check was previously requested due to the known association of B12 deficiency with memory issues. The patient underwent blood tests at the [facility] and [place]. Her home environment was noted to previously have high CO2 and VOC levels due to poor ventilation, which was resolved by improving the air quality, though this is not believed to be linked to her memory concerns. [facility] Medical History FHx: cholecystectomy Cataracts, bilateral FH: bilateral hip replacements High cholesterol Hypertension Restless legs Arthritis Surgical History History of appendectomy H/O: hysterectomy History of lumbar fusion Social History Household Members: Spouse Housing: House Do you presently have visiting nurse or other home services: No Patient Tobacco Use Status: Never used Tobacco service: No Review of Systems Const Details: - Neurological: Reports memory impairment; denies other neurological symptoms. - Respiratory: Denies shortness of breath or dyspnea reported. - General: Denies fatigue attributed to environmental factors. - Environment: Reports improvement in air quality since addressing ventilation issues at home. Physical Exam Neuro Other: She is alert and awake with normal spontaneity of speech fluency comprehension and affect but she has significant difficulty hearing and I had to shout to communicate with her Assessment & Plan Assessment & Plan (1) Alzheimer dementia: Comment: CT brain WO at [facility] in 2024: Mod severe diff central and cortical atrophy Code(s): G30.9 - Alzheimer's disease, unspecified; F02.80 - Dementia in other diseases classified elsewhere, unspecified severity, without behavioral disturbance, psychotic disturbance, mood disturbance, and anxiety Category: Medical Qualifiers: Alzheimer's disease onset: late onset Dementia severity: mild Dementia behavioral or psychological symptom: with anxiety Qualified Code(s): G30.1 - Alzheimer's disease with late onset; F02.A4 - Dementia in other diseases classified elsewhere, mild, with anxiety Plan Impression: 1. Mild Alzheimer disease 2. 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
--- OUTSIDE RECORDS SUMMARY | 2024-10-29 17:07 | XMS_ITS | Encounter Summary ---
Demographics Address [address] [place] [address] [place] [address] Home Phone
== END 2024-10-29 14:59 | disposition home or self-care (01) ==
LOC: HO.HSM 14:37
PROVIDERS: PCP Internal Medicine; Visit Provider Psychiatry & Neurology Neurology
DX: G30.1 Alzheimer's disease with late onset (principal); F02.A4 Dementia in other diseases classified elsewhere, mild, with anxiety
CPT/HCPCS: 99214

== ENCOUNTER 2024-12-16 09:08 | Emergency (ER) | payer MEDICARE, SELFPAY ==
--- OUTSIDE RECORDS SUMMARY | 2023-06-24 07:15 | XMS_ITS ---
Author Organization [facility] kirill [place] Address [address] [place] [address] Care Team Providers Care Journeyman [employer] Name Role Phone Wenceslao Aquino MD Primary Care Provider UnavailDallin Wyman [phone] lezama Encounters Encounter Location Date Provider Diagnosis [address] [address] 06/24/2023 Dallin Alvarado Plan Of Treatment Next Appt Details Provider Name:Dallin Alvarado , 03/12/2025 11:30:00 AM, [address] [place] [address], [id number], Progress Notes * Alessandra EDWARDS EDOB: [birth year] (89 yo F)Acc No.[id number]:06/24/2023 Progress Note Patient: Jessenia Alessandra MERINO Provider: Robson Alvarado DPM :1935 A ge:88 Y S ex:Female Date:06/24/2023 Address:[address] [facility] [id number] Pcp:Wenceslao Aquino MD Subjective: * Chief Complaints: * [address] lezama[address] * Medical History: Objective: * Vitals: Assessment: Plan: * Treatment: * Images: * The named appointment provid er may or may not be the originator of this progress note, and it is not deemed complete until electronically signed by the appointment provider. Sign off status: Pending * Provider: Robson Alvarado DPM Date: 0 06/24/2023 Generated for Terell Schmitt on: 02/16/2024 09:48 AM EST
--- OUTSIDE RECORDS SUMMARY | 2024-08-21 05:00 | XMS_ITS ---
Author Organization [facility] kirill [place] Address [address] [place] [address] Care Team Providers Care Unpaid Intern Name Role Phone Wenceslao Aquino MD Primary Care Provider Dallin Sharpe Unavailable [phone] Encounters Encounter Location Date Provider Diagnosis [address] [address] 08/21/2024 Dallin Alvarado Plan Of Treatment Next Appt Details Provider Name:Dallin Alvarado , 03/12/2025 11:30:00 AM, [address] [place] [address], [phone], Progress Notes * Alessandra EDWARDS EDOB: (89 yo F)Acc No.[id number]:08/21/2024 Progress Note Patient: Jessenia Alessandra MERINO Provider: Robson Alvarado DPM :1935 A ge:89 Y S ex:Female Date:08/21/2024 [address] [place] [place] Pcp:Wenceslao Aquino MD Subjective: * Chief Complaints: * * Medical History: Objective: * Vitals: Assessment: Plan: * Treatment: * Images: * The named appointment provid er may or may not be the originator of this progress note, and it is not deemed complete until electronically signed by the appointment provider. Sign off status: Pending * Provider: Robson Alvarado DPM Date: 0 08/21/2024 Generated for Terell larkin/Rakesh on: 1 02/16/2024 09:48 AM EST
--- NOTE | 2024-12-16 | ECG_ITS ---
Test Reason : DIZZINESS Blood Pressure : */* mmHG Vent. Rate : 84 BPM Atrial Rate : 84 BPM P-R Int : 130 ms QRS Dur : 74 ms QT Int : 350 ms P-R-T Axes : 5 -1 10 degrees QTcB Int : 413 ms Normal sinus rhythm Normal ECG When compared with ECG of 12-Jul-2024 03:33, ST no longer depressed in Anterior leads Nonspecific T wave abnormality no longer evident in Anterolateral leads Referred By: Generic ED Physician Electronically Signed By: Nomi Bear
[2024-12-16 09:11] VITALS: BP 160/90; PULSE 113; O2SAT 97
[2024-12-16 09:13] VITALS: PULSE 88; RESP 18; TEMP 36.6; O2SAT 99; BMI 25.0
--- OUTSIDE RECORDS SUMMARY | 2024-12-16 09:48 | XMS_ITS | Encounter Summary ---
Author Organization [facility] Address [address] [place] [address] [address] [place] [phone] Phone Care Team Providers Care Nursing Center Tutor Name Role Phone Wenceslao Aquino MD Primary Care Provider [phone] Encounter Details Date Type Department Care Team (Latest Contact Info) Description 08/02/2022 Transcribe Orders Virtual Department [address] [place] [address] Alfonzo Diaz, DO [address] [place] [address] [email or web address] Postlaminectomy syndrome, not elsewhere classified (Primary Dx) Social History Tobacco Use Types Packs/Day Years Used Date Smoking Tobacco: Never Assessed Education Answer Date Recorded Are you interested [...] Upcoming Encounters Date Type Department Care Team ( Contact Info) Description 03/26/2025 10:00 AM EST Office Visit [facility] Rheumatology [address] [place] [address] Fadumo Otto DO [address] [facility], [address] [place] [address] [email or web address] documented as of this encounter Visit Diagnoses Diagnosis Postlaminectomy syndrome, not elsewhere classified- Primary documented in this encounter Care Teams Nursing Center Tutor Relationship Specialty Start Date End Date Wenceslao Aquino MD [address] [place] [address] PCP - General Internal Medicine 08/29/18 documented as of this encounter Additional Source Comments The information contained in this document represents components of the legal health record. It is not the complete legal health record.[facility]
--- OUTSIDE RECORDS SUMMARY | 2024-12-16 09:48 | XMS_ITS | Patient Health Record ---
Author Organization [facility] Address [address] [facility] [place] [address] Care Team Providers Care Fruit Buyer Name Role Phone Wenceslao Aquino MD Primary Care Provider Dallin Sharpe Unavailable [phone] Allergies Allergen (clinical drug ingredient) Drug/Non Drug Allergy documented on EMR Reaction Allergy Type Onset Date Status ePHEDrine HCl rapid heart rate Drug Allergy Active Adhesive Tape rash Drug Allergy Act gianluca Reason For Referral No Information Medications Medication SIG (Take, Route, Frequency, Duration) Notes Start Date End Date Status Multivitamin Not-Bakari ing predniSONE 20 MG Oral; Duration: 10 Not-Taking MiraLax Not-Taking Boostrix 5-2.5-18.5 Intramuscular; Duration: 1 Not-Taking Ketoconazole 2 % 1 application Apply a thin layer to externally to feet, even between toes Twice a day; Duration: 30 days Active Atorvastatin Calcium Not-Taking Baby Aspirin Active Methadone HCl Not-Ta sarwat Yuvafem 10 MCG Vaginal; Duration: 84 Not-Taking Align Not-Taking Doxycycline Hyclate 100 MG Oral; Duration: 10 Not-Takin g Ammonium Lactate 12 % APPLY CREAM TOPICALLY TO AFFECTED AREA TWICE DAILY TO FEET; Duration: 30 Active Ranitidine PRN Not-Takin g Calcium + D Not-Taki ng Hydrea 500 MG 1 capsule Orally Once a day Active Diclofenac Sodium 75 MG Oral; Duration: 90 Not-Taking hydrOXYzine HCl 25 MG/ML as directed Active potassium Not-Taking dilTIAZem HCl ER Coated Beads 120 MG 1 capsule Orally Once a day Active Chlorthalidone 25 MG 1 tablet in the morning with food Orally Once a day; Duration: 30 day(s) Water Pill Not-Taking Metoprolol Succinate ER 50 MG Oral; Duration: 90 Active Gabapentin 300 MG Orally No t-Taking Immunizations Vaccine Route Administration Date Status Comme nts Influenza Unknown 10/08/2021 Administered Influenza Unknown 10/10/2023 Administered COVID-19 Pfizer BioNTech Vaccine Unknown 10/15/2021 Administered 1st 03/15/2020 4th 2021 2nd 04/05/2020 3rd 10/15/2020 Social History Tobacco [...] atherosclerosis of arteries of lower limbs (disorder) ([id number] ) Atherosclerosis of [place] artery of both lower extremities, with unspecified presence of clinical manifestation (I70.203) Active confirmed Vital Signs Blood pressure diastolic 72 mm Hg 11/09/2024 Height 5 ft 1.5 in in 11/09/2024 Blood pressure systolic 122 mm Hg 11/09/2024 Weight 111 lbs 11/09/2024 BMI 20.63 kg/m2 11/09/2024 Procedures Procedure Date Ordered Date Performed Result Body Sit e 86498-SDIYDIO NAIL, 6 OR MORE 02/14/2024 N/A 35362-ZJDC SKIN LESIONS, OVER 4 02/14/2024 N/A 18503-XHDFAIC NAIL, 6 OR MORE 05/15/2024 N/A 69613-YRLQ SKIN LESIONS, OVER 4 05/15/2024 N/A 91631-JUXWXFL NAIL, 6 OR MORE 11/09/2024 N/A 20943-RXZE SKIN LESIONS, OVER 4 11/09/2024 N/A Encounters Encounter Location Date Provider Diagnosis [facility] [place] [address] [place] [address] 02/14/2024 Dallin Alvarado Atherosclerosis of [place] artery of both lower extremities, with unspecified presence of clinical manifestation I70.203 ; Onychomycosis B35.1 ; Pain of toe of right foot M79.674 ; Pain of toe of left foot M79.675 and Xerosis of skin L85.[address] [address] 05/15/2024 Dallinezio Alvarado Atherosclerosis of [place] artery of both lower extremities, with unspecified presence of clinical manifestation I70.203 ; Onychomycosis B35.1 ; Pain of toe of right foot M79.674 and Pain of toe of left foot M79.[address] [facility] [address] [facility] [address] [place] [address] 09/26/2024 Dallin Alvarado Pain in right toe(s) M79.674 ; Contusion of lesser toe of right foot without damage to nail, initial encounter S90.121A ; Closed nondisplaced fracture of proximal phalanx of lesser toe of right foot, initial encounter S92.514A and Atherosclerosis of [place] artery of both lower extremities, with unspecified presence of clinical manifestation I70.[address] [address] 11/09/2024 Dallin Alvarado Atherosclerosis of [place] artery of both lower extremities, with unspecified presence of clinical manifestation I70.203 ; Onychomycosis B35.1 ; Pain of toe of right foot M79.674 ; Pain of toe of left foot M79.675 and Tinea pedis of both feet B35.[address] [address] 08/20/2024 Dallin Alvarado [address] [address] 09/26/2024 Dallin Alvarado Assessments Encounter Date Diagnosis (ICD Code) Assessment Notes Treatment Notes Treatment Clinical Notes Section Notes 02/14/2024 Onychomycosis (ICD-10 - B35.1) 02/14/2024 Atherosclerosis of [place] artery of both lower extremities, with unspecified presence of clinical manifestation (ICD-10 - I70.203) 05/15/2024 Onychomycosis (ICD-10 - B35.1) 05/15/2024 Atherosclerosis of [place] artery of both lower extremities, with unspecified presence of clinical manifestation (ICD-10 - I70.203) 09/26/2024 Pain in right toe(s) (ICD-10 - M79.674) 09/26/2024 Contusion of lesser toe of right foot without damage to nail, initial encounter (ICD-10 - S90.121A) 11/09/2024 Onychomycosis (ICD-10 - B35.1) 11/09/2024 Atherosclerosis of [place] artery of both lower extremities, with unspecified presence of clinical manifestation (ICD-10 - I70.203) 09/26/2024 Closed nondisplaced fracture of proximal phalanx of lesser toe of right foot, initial encounter (ICD-10 - S92.514A) 11/09/2024 Pain of toe of right foot (ICD-10 - M79.674) 05/15/2024 Pain of toe of right foot (ICD-10 - M79.674) 02/14/2024 Pain of toe of right foot (ICD-10 - M79.674) 02/14/2024 Pain of toe of left foot (ICD-10 - M79.675) 05/15/2024 Pain of toe of left foot (ICD-10 - M79.675) 09/26/2024 Atherosclerosis of [place] artery of both lower extremities, with unspecified presence of clinical manifestation (ICD-10 - I70.203) 11/09/2024 Pain of toe of left foot (ICD-10 - M79.675) 02/14/2024 Xerosis of skin (ICD-10 - L85.3) 11/09/2024 Tinea pedis of both feet (ICD-10 - B35.3) Patient Educated with: ATHELETE .pdf (ATHELETE .pdf) Plan Of Treatment Pending Test Test Name Order Date X ray : Foot, right 3V 09/26/2024 74245-XVCEWXJ NAIL, 6 OR MORE 11/09/2024 65206-FOXQWWW NAIL, 6 OR MORE 05/15/2024 62469-DBZGYMN NAIL, 6 OR MORE 11/04/2023 39631-GYTNCJY NAIL, 6 OR MORE 02/14/2024 18222-KUBWVQV NAIL, 6 OR MORE 08/13/2022 29496-TNGNVPO NAIL, 6 OR MORE 11/23/2022 29626-MHLFOMD NAIL, 6 OR MORE 02/25/2023 26536-HGPPRRW NAIL, 6 OR MORE 08/02/2023 81582-SLZQOHC NAIL, 6 OR MORE 11/18/2017 00785-WMOUUKL NAIL, 6 OR MORE 03/14/2018 89358-ALLJTQP NAIL, 6 OR MORE 06/13/2018 94798-HNNZHIN NAIL, 6 OR MORE 09/12/2018 47859-TEMBJBF NAIL, 6 OR MORE 12/12/2018 26831-VVABRGQ NAIL, 6 OR MORE 03/20/2019 03862-ABBQTGJ NAIL, 6 OR MORE 06/19/2019 80318-FTBNQOW NAIL, 6 OR MORE 09/21/2019 75704-GTIOYCP NAIL, 6 OR MORE 12/21/2019 34769-TWVEOTW NAIL, 6 OR MORE 03/25/2020 56586-BFGZDKX NAIL, 6 OR MORE 06/24/2020 13059-SCYVDRT NAIL, 6 OR MORE 09/23/2020 18322-ROKBJJN NAIL, 6 OR MORE 12/23/2020 35032-QMIHSVF NAIL, 6 OR MORE 03/24/2021 27015-XEWBGDT NAIL, 6 OR MORE 06/23/2021 59200-UNBBLXJ NAIL, 6 OR MORE 09/15/2021 93782-NEEJUMS NAIL, 6 OR MORE 01/12/2022 17193-QCDBEDN NAIL, 6 OR MORE 05/11/2022 07749-IENM SKIN LESIONS, OVER 4 05/12/19 23 45288-BLIS SKIN LESIONS, OVER 4 01/13/20 73151-DSLG SKIN LESIONS, OVER 4 09/16/19 22 61775-FNNI SKIN LESIONS, OVER 4 06/24/19 22 91217-VNXS SKIN LESIONS, OVER 4 03/24/19 22 44686-LKAS SKIN LESIONS, OVER 4 08/02/19 24 91719-FPLK SKIN LESIONS, OVER 4 02/25/19 24 78182-HKFY SKIN LESIONS, OVER 4 11/24/19 23 21912-GTRC SKIN LESIONS, OVER 4 08/14/19 23 50381-WHXO SKIN LESIONS, OVER 4 02/13/19 77698-OXPQ SKIN LESIONS, OVER 4 11/04/19 24 83069-BTLN SKIN LESIONS, OVER 4 05/16/19 22758-EYOH SKIN LESIONS, OVER 4 11/10/19 25 06463- Biopsy of skin lesion 10/14/2017 Next Appt Details Provider Name:Dallin Alvarado , 03/12/2025 11:30:00 AM, [address] [place], [address], Insurance Providers Payer Name Payer Address Payer Phone Subscriber Number Group Number Insured Name Patient Relationship to Insured Coverage Start Date Coverage End Date Medicare [facility] [address] [place] [address] [id number] Alessandra Edwards Self - patient is the insured 4 [employer] [address] [place] [address] [id number] Alessandra Edwards Self - patient is the insured Medical (General) History Medical History History ICD Code Arthritis Cholesterol Diverticulosis High blood pressure Sinus conditions Measles Mumps Chicken pox Joint implants/screws Transfusions Surgical History Surgery Date(Month/Year) spinal fusion L4 & L5 2007 left hip replacement 2012 right hip replacement 2014 cataract surgery 2015 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
--- OUTSIDE RECORDS SUMMARY | 2024-12-16 09:48 | XMS_ITS | Clinical Summary ---
Author Organization [address] Address [address] [place] [phone] Phone Care Team Providers Care Collection Advisor Name Role Phone Wenceslao Aquino MD Primary Care Provider [phone] Allergies Active Allergy Reactions Criticality Noted Date [...] succinate (TOPROL-XL) 50 mg 24 hr tablet Acti ve multivitamin (MULTIPLE VITAMINS ORAL) 1 tablet daily [...] day. Do not crush or chew. Active donepeziL (ARICEPT) 5 mg tablet Take 1 tablet (5 mg total) by mouth 1 (one) time each day. 09/25/2024 Active Active Problems Problem Noted Date Diagnosed Date Anxiety 08/13/2024 Atherosclerosis of artery of both lower extremities ([facility] V24) 08/13/2024 Chronic anemia 08/13/2024 Chronic back pain 08/13/2024 Leukocytosis 08/13/2024 Osteoarthritis 08/13/2024 Thrombocytosis 08/13/2024 Ureterolithiasis 08/13/2024 Other hyperlipidemia 01/08/2024 Other secondary hypertension 01/08/2024 CKD (chronic kidney disease) stage 3, GFR 30-59 ml/min ([facility] V24, [facility] V28) 01/08/2024 Acute pancreatitis 12/29/2023 Primary osteoarthritis [...] presumptively with Bactrim. Will send C&S and globe changer prn. Pelvic pressure in female 04/08/2022 Overview [...] Encounters Date Type Department Care Team Description 12/05/2024 Results Follow-Up Gastroenterology - [address] [phone] Shital Pak MD 12/04/2024 Telephone Gastroenterology - [address] [phone] Feng Sandoval MD 11/30/2024 10:52 AM EDT - 11/30/2024 11:59 PM EDT Hospital Encounter [facility] CT Scan [address] [place] [address] Diarrhea of presumed infectious origin Discharge Disposition: Home or Self Care 10/25/2024 Telephone Gastroenterology - [address] [address] Audrey Stanley MA 10/25/2024 Telephone Gastroenterology - [address] [address] Audrey Stanley MA 10/12/2024 1:35 PM EDT - 10/12/2024 11:59 PM EDT Hospital Encounter [facility] Xray [address] [place] [address] Diarrhea of presumed infectious origin Discharge Disposition: Home or Self Care 10/12/2024 1:00 PM EDT Office Visit Gastroenterology - [address] [phone] Jaclyn Snow PA Diarrhea of presumed infectious origin (Primary Dx) 10/12/2024 Telephone Gastroenterology - [address] [place] [address] Jaclyn Snow PA from Last 3 Months Surgical History Surgery Date Site/Laterality Comments HYSTERECTOMY 1968 PROCEDURE: HISTORICAL HYSTERECTOMY VAGINAL DELIVERY PROCEDURE: RI VAGINAL DELIVERY ONLY; COMMENT: x4 TONSILLECTOMY ADENOIDECTOMY, BILATERAL MYRINGOTOMY AND TUBES age 5 PROCEDURE: RI TONSILLECTOMY & ADENOIDECTOMY <AGE 12 CHOLECYSTECTOMY PROCEDURE: RI CHOLECYSTECTOMY OTHER SURGICAL HISTORY 09/2006 PROCEDURE: RI ARTHRODESIS ANTERIOR SPINAL DFRM 4-7 VRT SGM [...] - Inhaled Oxygen Concentration - - Weight 52.6 kg (116 lb) 10/12/2024 12:55 PM EDT Height 152.4 cm (5') 10/12/2024 12:55 PM EDT Body Mass Index 22.65 10/12/2024 12:55 PM EDT Plan of Treatment Upcoming Encounters Date Type Department Care Team (Late st Contact Info) Description 04/22/2025 10:30 AM EDT Appointment Radiology Department - [address] [address] 04/22/2025 10:55 AM EDT Appointment Radiology Department - [address] [address] Health Maintenance Due Date Last Done Comments DTaP,Tdap,and Td Vaccines (1 - Tdap) 04[birth year]27/1954 Zoster Vaccines (1 of 2) 04/27/1954 Pneumococcal Vaccine: 50+ Years (1 of 1 - PCV) 04/27/1985 Cholesterol Screening (Lipid Panel) 01/16/2022 Falls Risk Assessment 01/16/2022 Social Influencers of Health Screening 01/16/2022 Medicare Annual Wellness Visit 06/08/2023 06/07/2022 Depression Screening 02/08/2024 COVID-19 Vaccine (7 - Pfizer risk season) 2024 11/07/2023, 11/21/2022, 12/18/2021, Additional history exists Hypertension/CHF/CAD Annual BMP Blood Test 10/24/2025 10/24/2024, 10/12/2024, 08/14/2024, Additional history exists Osteoporosis Screening (Bone Density Screening) 07/11/2028 07/11/2018 RSV Immunization Adult Patients Completed 10/03/2023 Influenza Vaccine Completed 10/16/2024, , 10/03/2023, Additional history exists HIB Vaccines Aged Out No longer eligi [...] Procedure Name Priority Date/Time Associated Diagnosis Comments CT ABDOMEN PELVIS W CONTRAST Routine 11/30/2024 11:13 AM EDT Diarrhea of presumed infectious origin BASIC METABOLIC PANEL Routine 10/24/2024 12:17 PM EDT Diarrhea of presumed infectious origin CBC WITH AUTO DIFFERENTIAL Routine 10/12/2024 2:08 PM EDT Diarrhea of presumed infectious origin COMPREHENSIVE METABOLIC PANEL Routine 10/12/2024 2:08 PM EDT Diarrhea of presumed infectious origin CBC AND DIFFERENTIAL Routine 10/12/2024 2:08 PM EDT Diarrhea of presumed infectious origin TISSUE TRANSGLUTAMINASE, IGA Routine 10/12/2024 2:08 PM EDT Diarrhea of presumed infectious origin ENDOMYSIAL ANTIBODY, IGA Routine 10/12/2024 2:08 PM EDT Diarrhea of presumed infectious origin C-REACTIVE PROTEIN Routine 10/12/2024 2: 08 PM EDT Diarrhea of presumed infectious origin THYROID STIMULATING HORMONE Routine 10/12/2024 2:08 PM EDT Diarrhea of presumed infectious origin LIPASE Routine 10/12/2024 2:08 PM EDT Diarrhea of presumed infectious origin XR ABDOMEN 1 VIEW Routine 10/12/2024 1:4 5 PM EDT Diarrhea of presumed infectious origin DXA BONE DENSITY STUDY 1+ SITS AXIAL SKEL Routine 07/11/2018 11:12 AM EDT Menopausal and female climacteric states from Last 3 Months or Most Recently Relevant to Health Maintenance Results * CT Abdomen Pelvis w Contrast (11/30/2024 11:13 AM EDT) Anatomical Region Laterality Modality Body Computed Tomogra phy 12/05/2024 6:20 AM EDT Impressions 12/05/2024 6:33 AM EDT No pancreatic mass or peripancreatic collection. Distal colonic diverticula. There is pneumobilia. Previous cholecystectomy. Prominent extrahepatic biliary tree probably not significantly changed since MRI 07/18/23 -------- FINAL REPORT -------- Dictated By: Narendra Asencio Dictated Date: 12/05/2024 06:20 ET Assigned Physician: Narendra Asencio Reviewed and Electronically Signed By: Narendra Asencio Signed Date: 12/05/2024 06:33 ET Workstation ID: [id number] Transcribed By: Self Edit Transcribed Date: 12/05/2024 06:21 ET Narrative 12/05/2024 6:33 AM EDT EXAMINATION: CT ABDOMEN/PELVIS WITH IV CONTRAST CLINICAL INFORMATION: Chronic diarrhea. Weight loss. Elevated lipase COMPARISON: Portions of CT performed without IV contrast in or 12/27/20 TECHNIQUE: Multidetector CT. Helical examination of the abdomen and pelvis. Imaging performed after the IV administration of contrast. Reformatting in the coronal and sagittal planes. DLP: 576 mGy-cm Dose optimization was performed including the use of low-dose iterative reconstruction technique with automatic exposure control based on patient size. Type of contrast: ISOVUE 370 Volume of IV contrast: 90 mL Volume of contrast discarded: 0 mL FINDINGS: There is motion artifact. LIVER: There is pneumobilia. There is some prominence of the extrahepatic biliary tree and central intrahepatic bile ducts. There is a circumscribed 1.1 cm low attenuating mass in the central aspect of the left lobe near the viji hepatis which is likely a cyst and appears unchanged. The pneumobilia was not present 02/18/20. BILIARY TRACT: There are clips in the expected region of the gallbladder. The common duct measures approximately 1.2 cm. There is no discrete duct calculus but there is some slightly high density dependent near the ampulla. SPLEEN: No suspicious abnormality PANCREAS: There is some motion artifact. No definite mass. The pancreatic duct is diffusely prominent. There is no peripancreatic stranding or fluid collection ADRENAL GLANDS: No suspicious abnormality KIDNEYS: The kidneys enhance symmetrically. There are prominent extrarenal pelves bilaterally there is no dilation of the mid or distal ureter. There are circumscribed low attenuating masses consistent with cysts. There is some irregularity of the renal contour suggesting scarring. URINARY BLADDER: Obscured by metallic artifact. PELVIC VISCERA: Obscured by artifact. GASTROINTESTINAL TRACT: Pelvic portions obscured by metallic artifact. Distal colonic diverticula. No significant small bowel dilation. No suspicious abnormality of the stomach. There is no large mass in the region of the duodenum. ABDOMINAL WALL: No significant hernia is appreciated. Circumscribed 0.6 cm low attenuating subcutaneous abnormality dorsally in the mid lumbar region was present previously and may represent a sebaceous cyst. LYMPHOVASCULAR STRUCTURES AND FLUID: There is no abdominal aortic aneurysm. Extensive arterial calcifications. Scattered nonenlarged nonspecific retroperitoneal lymph nodes. The portal vein enhances. No convincing intraperitoneal fluid. VISUALIZED LOWER CHEST: There is coronary artery calcification. No suspicious lung base abnormalities. MUSCULOSKELETAL: No acute or suspicious osseous abnormality. I suspect previous lumbar surgery. Previous bilateral hip replacements cause significant artifact. There is anterolisthesis of L3 relative to L4 and L4 relative to L5. Marked narrowing of the L3-4 disc. Procedure Note Narendra Asencio MD - 12/05/2024 EXAMINATION: CT ABDOMEN/PELVIS WITH IV CONTRAST CLINICAL INFORMATION: Chronic diarrhea. Weight loss. Elevated lipase COMPARISON: Portions of CT performed without IV contrast in or 12/27/20 TECHNIQUE: Multidetector CT. Helical examination of the abdomen and pelvis. Imaging performed after the IV administration of contrast. Reformatting in the coronal and sagittal planes. DLP: 576 mGy-cm Dose optimization was performed including the use of low-dose iterativereconstruction technique with automatic exposure control based on patientsize. Type of contrast: ISOVUE 370 Volume of IV contrast: 90 mL Volume of contrast discarded: 0 mL FINDINGS: There is motion artifact. LIVER: There is pneumobilia. There is some prominence of the extrahepaticbiliary tree and central intrahepatic bile ducts. There is acircumscribed 1.1 cm low attenuating mass in the central aspect of theleft lobe near the viji hepatis which is likely a cyst and appearsunchanged. The pneumobilia was not present 02/18/20. BILIARY TRACT: There are clips in the expected region of the gallbladder.The common duct measures approximately 1.2 cm. There is no discrete ductcalculus but there is some slightly high density dependent near theampulla. SPLEEN: No suspicious abnormality PANCREAS: There is some motion artifact. No definite mass. Thepancreatic duct is diffusely prominent. There is no peripancreaticstranding or fluid collection ADRENAL GLANDS: No suspicious abnormality KIDNEYS: The kidneys enhance symmetrically. There are prominentextrarenal pelves bilaterally there is no dilation of the mid or distalureter. There are circumscribed low attenuating masses consistent withcysts. There is some irregularity of the renal contour suggestingscarring. URINARY BLADDER: Obscured by metallic artifact. PELVIC VISCERA: Obscured by artifact. GASTROINTESTINAL TRACT: Pelvic portions obscured by metallic artifact.Distal colonic diverticula. No significant small bowel dilation. No suspicious abnormality of the stomach. There is no large mass in theregion of the duodenum. ABDOMINAL WALL: No significant hernia is appreciated. Circumscribed 0.6 cm low attenuating subcutaneous abnormality dorsally inthe mid lumbar region was present previously and may represent a sebaceouscyst. LYMPHOVASCULAR STRUCTURES AND FLUID: There is no abdominal aorticaneurysm. Extensive arterial calcifications. Scattered nonenlargednonspecific retroperitoneal lymph nodes. The portal vein enhances. No convincing intraperitoneal fluid. VISUALIZED LOWER CHEST: There is coronary artery calcification. Nosuspicious lung base abnormalities. MUSCULOSKELETAL: No acute or suspicious osseous abnormality. I suspectprevious lumbar surgery. Previous bilateral hip replacements causesignificant artifact. There is anterolisthesis of L3 relative to L4 andL4 relative to L5. Marked narrowing of the L3-4 disc. IMPRESSION: No pancreatic mass or peripancreatic collection. Distal colonic diverticula. There is pneumobilia. Previous cholecystectomy. Prominent extrahepaticbiliary tree probably not significantly changed since MRI 07/18/23 -------- FINAL REPORT -------- Dictated By: Narendra Asencio Dictated Date: 12/05/2024 06:20 ET Assigned Physician: Narendra Asencio Reviewed and Electronically Signed By: Narendra Asencio Signed Date: 12/05/2024 06:33 ET Workstation ID: [id number] Transcribed By: Self Edit Transcribed Date: 12/05/2024 06:21 ET Jaclyn AYALA IMG CT PROCEDURES Final Result * (ABNORMAL) Basic metabolic panel (10/24/2024 12:17 PM EDT) Sodium 136 133 - 145 mmol/L LAB CHEMISTRY METHOD 10/24/2024 3:40 PM [facility] Potassium 4.0 3.5 - 5.5 mmol/L LAB CHEMISTRY METHOD 10/24/2024 3:40 PM [facility] Chloride 101 96 - 110 mmol/L LAB CHEMISTRY METHOD 10/24/2024 3:40 PM [facility] CO2 29 21 - 32 mmol/L LAB CHEMISTRY METHOD 10/24/2024 3:40 PM [facility] Anion Gap 6 3 - 11 LAB CHEMISTRY METHOD 10/24/2024 3:40 PM [facility] Glucose 106(H) 70 - 100 mg/dL LAB CHEMISTRY METHOD 10/24/2024 3:40 PM [facility] BUN 16 5 - 25 mg/dL LAB CHEMISTRY METHOD 10/24/2024 3:40 PM [facility] Creatinine 1.01 0.50 - 1.10 mg/dL LAB CHEMISTRY METHOD 10/24/2024 3:40 PM [facility] eGFR 53(L) >=60 mL/min/1. 73m2 LAB CHEMISTRY METHOD 10/24/2024 3:40 PM [facility] Comment:Calculation based on the Chronic Kidney Disease Epidemiology Collaboration (CKD-EPI) equation refit without adjustment for race. BUN/Creatinine Ratio 15.8 LAB CHEMISTRY METHOD 10/24/2024 3:40 PM EDT [facility] Calcium 9.5 8.5 - 10.5 mg/dL LAB CHEMISTRY METHOD 10/24/2024 3:40 PM EDT [facility] Blood Venous blood specimen / Unknown Venipuncture / Unknown 10/24/2024 12:17 PM EDT 10/24/2024 12:17 PM EDT [facility] BLOOD ORDERABLES Final Resu lt Performing Organization Address City/[facility]/ZIP Co de Phone Number [facility] [address] [place] [address], [place] [phone] * Endomysial antibody, IgA (10/12/2024 2:08 PM EDT) Endomysial IgA Negative Negative 10/15/2024 11:19 AM EDT [facility] Blood Venous blood specimen / Unknown Venipuncture / Unknown 10/12/2024 2:08 PM EDT 10/12/2024 2:16 PM EDT [facility] Snow PA LAB BLOOD ORDERABLES Final Resu lt [facility] [address] [place] [address], [place] [phone] * (ABNORMAL) CBC auto differential (10/12/2024 2:08 PM EDT) WBC 5.4 4.8 - 10.8 K/[facility] LAB HEMETOLOGY METHOD 10/12/2024 2:22 PM EDT [facility] RBC 3.30(L) 3.80 - 4.80 M/[facility] LAB HEMETOLOGY METHOD 10/12/2024 2:22 PM EDT [facility] Hemoglobin 11.9 11.5 - 16.0 g/dL LAB HEMETOLOGY METHOD 10/12/2024 2:22 PM EDT [facility] Hematocrit 36.9 35.0 - 47.0 % LAB HEMETOLOGY METHOD 10/12/2024 2:[facility] MCV 112.8(H) 79.0 - 98.0 FL LAB HEMETOLOGY METHOD 10/12/2024 2:22 PM EDT [facility] MCH 36.4(H) 27.0 - 32.0 pcg LAB HEMETOLOGY METHOD 10/12/2024 2:[facility] MCHC 32.2 32.0 - 37.0 g/dL LAB HEMETOLOGY METHOD 10/12/2024 2:22 PM [facility] RDW 13.5 11.0 - 15.0 % LAB HEMETOLOGY METHOD 10/12/2024 2:22 PM EDT [facility] Platelets 333 130 - 400 K/mcL LAB HEMETOLOGY METHOD 10/12/2024 2:[facility] MPV 9.2 7.0 - 11.0 FL LAB HEMETOLOGY METHOD 10/12/2024 2:22 PM [facility] NRBC 0.0 <1.0 % LAB HEMETOLOGY METHOD 10/12/2024 2:22 PM [facility] NRBC Absolute 0.00 <0.10 K/mcL LAB HEMETOLOGY METHOD 10/12/2024 2:22 PM [facility] Neutrophils Relative 55.8 % LAB HEMETOLOGY METHOD 10/12/2024 2:22 PM [facility] Lymphocytes Relative 33.8 % LAB HEMETOLOGY METHOD 10/12/2024 2:22 [facility] Monocytes Relative 8.1 % LAB HEMETOLOGY METHOD 10/12/2024 2:22 PM EDT [facility] Eosinophils Relative 1.3 % LAB HEMETOLOGY METHOD 10/12/2024 2:22 PM EDT [facility] Basophils Relative 0.6 % LAB HEMETOLOGY METHOD 10/12/2024 2:22 PM EDT [facility] Immature Granulocytes Relative 0.4 % LAB HEMETOLOGY METHOD 10/12/2024 2:22 PM EDT [facility] Neutrophils Absolute 3.04 1.50 - 7.00 K/mcL LAB HEMETOLOGY METHOD 10/12/2024 2:22 PM EDT [facility] Lymphocytes Absolute 1.84 1.00 - 5.00 K/mcL LAB HEMETOLOGY METHOD 10/12/2024 2:22 PM EDT [facility] Monocytes Absolute 0.44 0.20 - 1.00 K/mcL LAB HEMETOLOGY METHOD 10/12/2024 2:22 PM EDT [facility] Eosinophils Absolute 0.07 0.00 - 0.50 K/mcL LAB HEMETOLOGY METHOD 10/12/2024 2:22 PM EDT [facility] Basophils Absolute 0.03 0.00 - 0.20 K/mcL LAB HEMETOLOGY METHOD 10/12/2024 2:22 PM EDT [facility] Immature Granulocytes Absolute 0.02 0.00 - 0.03 K/mcL LAB HEMETOLOGY METHOD 10/12/2024 2:22 PM EDT [facility] Blood Venous blood specimen / Unknown Venipuncture / Unknown 10/12/2024 2:08 PM EDT 10/12/2024 2:16 PM EDT us Jaclyn AYALA LAB BLOOD ORDERABLES Final Resu lt [facility] [address] [place] [address], * Tissue transglutaminase, IgA (10/12/2024 2:08 PM EDT) Tissue Transglutaminase Ab, IgA Quant 1 <4 unit/mL LAB CHEMISTRY METHOD 10/17/2024 11:53 AM EDT [facility] Tissue Transglutaminase Ab, IgA Negative Negative LAB CHEMISTRY METHOD 10/17/2024 11:53 AM EDT [facility] Blood Venous blood specimen / Unknown Venipuncture / Unknown 10/12/2024 2:08 PM EDT 10/12/2024 2:16 PM EDT Jaclyn AYALA LAB BLOOD ORDERABLES Final Resu lt [facility] [address] [place] [address], * C-reactive protein (10/12/2024 2:08 PM EDT) Pathologist [facility] C-Reactive Protein <0.29 <=0.50 mg/dL LAB CHEMISTRY METHOD 10/12/2024 4:42 PM EDT [facility] Blood Venous blood specimen / Unknown Venipuncture / Unknown 10/12/2024 2:08 PM EDT 10/12/2024 2:16 PM EDT Jaclyn Snow DC LAB BLOOD ORDERABLES Final Resu lt [facility] [address] [place] [address], [place] [phone] * Thyroid stimulating hormone (10/12/2024 2:08 PM EDT) Pathologist [facility] TSH 1.37 0.40 - 4.00 mcIU/mL LAB CHEMISTRY METHOD 10/12/2024 5:01 PM EDT [facility] Blood Venous blood specimen / Unknown Venipuncture / Unknown 10/12/2024 2:08 PM EDT 10/12/2024 2:16 PM EDT Jaclyn Snow DC LAB BLOOD ORDERABLES Final Resu lt Performing Organization Address [facility]/ZIP Co de Phone Number [facility] [address] [place] [address], [place] [phone] * (ABNORMAL) Lipase (10/12/2024 2:08 PM EDT) Lipase 87(H) 13 - 75 unit/L LAB CHEMISTRY METHOD 10/12/2024 4:31 PM EDT [facility] Blood Venous blood specimen / Unknown Venipuncture / Unknown 10/12/2024 2:08 PM EDT 10/12/2024 2:16 PM EDT Jaclyn Snow DC LAB BLOOD ORDERABLES Final Resu lt Performing Organization Address [facility]/ZIP Co de Phone Number [facility] [address] [place] [address], [place] [phone] * (ABNORMAL) Comprehensive metabolic panel (10/12/2024 2:08 PM EDT) Pathologist [facility] Sodium 135 133 - 145 mmol/L LAB CHEMISTRY METHOD 10/12/2024 4:42 PM EDT [facility] Potassium 4.2 3.5 - 5.5 mmol/L LAB CHEMISTRY METHOD 10/12/2024 4:42 PM EDT [facility] Chloride 102 96 - 110 mmol/L LAB CHEMISTRY METHOD 10/12/2024 4:42 PM EDT [facility] CO2 30 21 - 32 mmol/L LAB CHEMISTRY METHOD 10/12/2024 4:42 PM EDT [facility] Anion Gap 3 3 - 11 LAB CHEMISTRY METHOD 10/12/2024 4:42 PM EDT [facility] Glucose 115(H) 70 - 100 mg/dL LAB CHEMISTRY METHOD 10/12/2024 4:42 PM [facility] BUN 16 5 - 25 mg/dL LAB CHEMISTRY METHOD 10/12/2024 4:42 PM [facility] Creatinine 1.17(H) 0.50 - 1.10 mg/dL LAB CHEMISTRY METHOD 10/12/2024 4:42 PM [facility] eGFR 45(L) >=60 mL/min/1. 73m2 LAB CHEMISTRY METHOD 10/12/2024 4:42 PM [facility] Comment:Calculation based on the Chronic Kidney Disease Epidemiology Collaboration (CKD-EPI) equation refit without adjustment for race. BUN/Creatinine Ratio 13.7 LAB CHEMISTRY METHOD 10/12/2024 4:42 PM [facility] Calcium 10.3 8.5 - 10.5 mg/dL LAB CHEMISTRY METHOD 10/12/2024 4:42 PM [facility] AST (SGOT) 23 10 - 42 unit/L LAB CHEMISTRY METHOD 10/12/2024 4:42 PM [facility] ALT (SGPT) 26 10 - 60 unit/L LAB CHEMISTRY METHOD 10/12/2024 4:42 PM [facility] Alkaline Phosphatase 56 42 - 121 unit/L LAB CHEMISTRY METHOD 10/12/2024 4:42 PM [facility] Total Protein 6.9 6.0 - 8.0 g/dL LAB CHEMISTRY METHOD 10/12/2024 4:42 PM [facility] Albumin 4.1 3.2 - 5.0 g/dL LAB CHEMISTRY METHOD 10/12/2024 4:42 PM [facility] Total Bilirubin 0.5 0.0 - 1.4 mg/dL LAB CHEMISTRY METHOD 10/12/2024 4:42 PM [facility] Blood Venous blood specimen / Unknown Venipuncture / Unknown 10/12/2024 2:08 PM EDT 10/12/2024 2:16 PM EDT us Jaclyn AYALA LAB BLOOD ORDERABLES Final Resu lt [facility] [address] [place] [address], [place] [phone] * XR Abdomen 1 View (10/12/2024 1:45 PM EDT) Anatomical Region Laterality Modality Body Radiographic Blessing ging 10/15/2024 11:4 2 AM EDT Impressions 10/15/2024 11:43 AM EDT Nonobstructive bowel gas pattern. There is no radiographic evidence of constipation as questioned clinically. Code 13769 -------- FINAL REPORT -------- Dictated By: Wenceslao Funk Dictated Date: 10/15/2024 11:42 ET Assigned Physician: Wenceslao Funk Reviewed and Electronically Signed By: Wenceslao Funk Signed Date: 10/15/2024 11:43 ET Workstation ID: [id number] Transcribed By: Self Edit Transcribed Date: 10/15/2024 11:42 ET Narrative 10/15/2024 11:43 AM EDT HISTORY: The patient is an 89-year-old female with constipation. FINDINGS: Supine radiographs of the abdomen, without previous for comparison, demonstrate that the patient has undergone previous total bilateral hip replacement surgery. Cholecystectomy clips are noted. There are degenerative changes and dextroscoliosis of the lumbar spine. The bowel gas pattern is nonobstructive. The volume of fecal material is not unusually increased. No mass or radiopaque calculus is seen. Procedure Note Wenceslao Funk MD - 10/15/2024 HISTORY: The patient is an 89-year-old female with constipation. FINDINGS: Supine radiographs of the abdomen, without previous forcomparison, demonstrate that the patient has undergone previous totalbilateral hip replacement surgery. Cholecystectomy clips are noted.There are degenerative changes and dextroscoliosis of the lumbar spine.The bowel gas pattern is nonobstructive. The volume of fecal material isnot unusually increased. No mass or radiopaque calculus is seen. IMPRESSION: Nonobstructive bowel gas pattern. There is no radiographic evidence ofconstipation as questioned clinically. Code 08386 -------- FINAL REPORT -------- Dictated By: Wenceslao Funk Dictated Date: 10/15/2024 11:42 ET Assigned Physician: Wenceslao Funk Reviewed and Electronically Signed By: Wenceslao Funk Signed Date: 10/15/2024 11:43 ET Workstation ID: [id number] Transcribed By: Self Edit Transcribed Date: 10/15/2024 11:42 ET us Jaclyn AYALA IMG XR PROCEDURES Final Result * DXA BONE DENSITY STUDY 1+ [...] should be classified as having osteopenia. The [facility] Department of Internal Medicine recommends using [...] Edwards should beclassified as having osteopenia. [facility] Department of Internal Medicine recommendsusing National [...] or over-estimation of fracture risk by FRAX. us Wenceslao Woods MD IMG DXA PROCEDURES Final Result from Last 3 Months or Most Recently Relevant to Health Maintenance Insurance MEDICARE [facility] Care Teams Collection Advisor Relationship Specialty Start Date End Date Wenceslao Aquino MD [facility] [place] [address] PCP - General Offline Cutter 08/22/18
--- OUTSIDE RECORDS SUMMARY | 2024-12-16 09:48 | XMS_ITS | Clinical Summary ---
Author Organization [facility] Address [address] [place] [address] Care Team Providers Care Printmaker Name Role Phone Wenceslao Aquino MD Primary Care Provider [phone] Allergies Active Allergy Reactions Criticality Noted Date [...] (two) times a day. 0 Active b dlgkvnw-G-njxnd acid 1 MG capsule Take 1 capsule [...] age to complete this topic Care Teams Printmaker Relationship Specialty Start Date End Date Wenceslao Aquino MD [address] [facility] [address] [place] [address] PCP - General Director Client 08/22/18
--- OUTSIDE RECORDS SUMMARY | 2024-12-16 09:48 | XMS_ITS | Clinical Summary ---
Author Organization [facility] Address [address] [facility] [address] [place] [address] Phone Care Team Providers Care County Commissioner Name Role Phone Wenceslao Aquino MD Primary Care Provider [phone] Allergies Active Allergy Reactions Criticality Noted Date Comments Epinephrine Palpitations Low 03/01/2023 Medications dilTIAZem (CARDIZEM CD) 120 MG 24 hr capsule Take 120 mg by mouth. 12/30/2022 Active metoprolol succinate (TOPROL-XL) 50 MG 24 hr tablet Take 50 mg by mouth daily. Active hydrOXYzine (VISTARIL) 25 MG capsule Take 25 mg by mouth nightly at bedtime as needed for itching. Active aspirin 81 MG EC tablet Take 81 mg by mouth. 11/15/2023 Active HYDREA 500 mg capsule Take 1 capsule by mouth. 11/15/2023 Active vit A/vit C/vit E/zinc/copper (PRESERVISION AREDS ORAL) Take by mouth 2 (two) times a day. Active DULoxetine (CYMBALTA) 20 MG capsule Take 1 capsule (20 mg total) by mouth 2 (two) times a day. 180 capsule 1 09/12/2024 Active Active Problems Problem Noted Date Diagnosed [...] Sent her for some baseline labs today. Family History Medical History Relation Comments Heart [...] 09/02/2023 4:26 PM EDT Plan of Treatment Upcoming Encounters Date Type Department Care Team (Late st Contact Info) Description 03/26/2025 10:00 AM EST Office Visit [facility] Rheumatology [address] [place] [address] Fadumo Otto DO [address], [address] [place] [address] Health Maintenance Due Date Last Done Comments Adult Td,Tdap Booster 1935 DEPRESSION SCREENING 1947 PNEUMOCOCCAL VACCINES (50+ years) (1 of 1 - PCV) 04/27/1985 ZOSTER VACCINES (1 of 2) 04/27/1985 OSTEOPOROSIS SCREENING INITIAL (ONE-TIME) 04/27/2000 INFLUENZA VACCINE (#1) 2024 , 10/13/2022, 12/18/2021, Additional history exists COVID-19 VACCINE ( season) 2024 11/07/2023, 11/21/2022, 12/18/2021, Additional history exists RSV VACCINE Completed 10/03/2023 HEPATITIS A VACCINES Aged Out No long er eligible based on patient's age to complete this topic HIB VACCINES Aged Out No longer eligi ble based on patient's age to complete this topic IPV VACCINES Aged Out No longer eligi ble based on patient's age to complete this topic MENINGOCOCCAL VACCINES (ACWY) Aged Out No longer eligible based on patient's age to complete this topic MENINGOCOCCAL VACCINES (B) Aged Out N o longer eligible based on patient's age to complete this topic Medical Devices Not on file Insurance [place] [id number] [facility] MEDEX SUPPLEMENT MEDICARE PART A & B Member Subscriber Plan / Payer (Ef fective 2003-Present) Name:Alessandra Edwards Member ID:[id number] Relation to Subscriber:Self Name:Alessandra Edwards Subscriber ID:[id number] Payer ID:[id number] Group ID:Not on file Type:Medicare Address: [facility].[address] [address] [facility] MEDEX SUPPLEMENT MEDICARE PART A & B [employer] MEDEX SUPPLEMENT MEDICARE PART A & B [employer] MEDEX SUPPLEMENT MEDICARE PART A & B [employer] MEDEX SUPPLEMENT MEDICARE PART A & B [employer] MEDEX SUPPLEMENT MEDICARE PART A & B [employer] MEDEX SUPPLEMENT MEDICARE PART A & B [employer] MEDEX SUPPLEMENT MEDICARE PART A & B [facility] MEDEX SUPPLEMENT Care Teams County Commissioner Relationship Specialty Start Date End Date Wenceslao Aquino MD [address] [place] [address] [place] [address] PCP - General Internal Medicine 08/29/18 Additional Source Comments The information contained in this document represents components of the legal health record. It is not the complete legal health record.[facility]
--- OUTSIDE RECORDS SUMMARY | 2024-12-16 09:48 | XMS_ITS | Encounter Summary ---
Author Organization [facility] Address [address] [place] [address] [place] [address] Phone Care Team Providers Care Cooling Pan Tender Name Role Phone Wenceslao Aquino MD Primary Care Provider [phone] Reason for Referral * MRI/CAT Scan - Closed Specialty Diagnoses / Procedures Referred By Kapil no Referred To Contact Radiology Diagnoses Lumbar radiculopathy Procedures MRI Lumbar Spine Alfonzo Diaz DO Phone: tel: fax: mailto:[email or web address] Referral ID Status Reason Start Date Expiration Date Visits Re quested Visits Authorized [id number] Closed 08/29/2018 08/29/2019 1 1 Encounter Details Date Type Department Care Team (Latest Contact Info) Description 08/29/2018 Ancillary Orders Virtual Department [address] [place] [address] Alfonzo Diaz DO [address] [place] [address] [email or web address] Social History Tobacco Use Types Packs/Day Years Used Date Smoking Tobacco: Never Assessed Comments Unknown Sex and Gender Information Value Date Recorded Sex Assigned at Not on file Legal Sex Female 8:57 AM EDT Gender Identity Not on file Sexual Orientation Not on file documented as of this encounter Plan of Treatment Upcoming Encounters Date Type Department Care Team ( st Contact Info) Description 03/26/2025 10:00 AM EST Office Visit [facility] Rheumatology [address] [place] [address] Fadumo Otto, DO [address] [facility], [address] [place] [address] [email or web address] documented as of this encounter Results * MRI LUMBAR SPINE (NEURO) WITHOUT CONTRAST (09/07/2018 12:11 PM EDT) Anatomical Region Laterality Modality L-spine Magnetic Resonan ce 09/07/2018 12:3 8 PM EDT Impressions 09/07/2018 1:01 PM EDT 1. Severe degenerative disc and endplate changes at L3-L4. There is moderate narrowing of the lateral recesses, left greater than right, by facet arthropathy and thickening of the ligamentum flavum at this level. There is also severe narrowing of the left neuroforamen by osteophytes and facet arthropathy. 2. Grade 1 spondylolisthesis of L4 and L5 and, to a lesser degree L3 on L4, probably due to degenerative facet arthropathy. 3. Moderate degenerative disc and endplate changes at L4-L5. Bilateral laminectomy changes at L4-L5. 4. Masses within the kidneys consistent with cysts. POS - [id number] Narrative 09/07/2018 1:01 PM EDT HISTORY: Lower back pain with left-sided sciatic symptoms, paresthesias in left hip and ankle. COMPARISON: None. TECHNIQUE: Exam performed on a 1.5 Ginette high-field MRI scanner. Sagittal T1, T2 and STIR, axial T1 and T2 sequences were obtained. FINDINGS: Conus medullaris: Normal. L1-L2: Loss of T2 signal within the disc. Maintenance of disc space height. No focal disc abnormality. No spinal stenosis. L2-L3: Disc height well-maintained. Small right lateral disc bulge. No spinal stenosis. L3-L4: Severe disc space narrowing and degenerative endplate changes. Approximately 2 mm of spondylolisthesis of L3 on L4. Broad-based disc-osteophyte complex. Moderate facet arthropathy on left and more mild facet arthropathy on right. Bilateral thickening of the ligamentum flavum. Moderate narrowing of the lateral recesses posteriorly with crowding of the cauda equina. The left lateral recess is narrowed somewhat more than the right. Severe narrowing of the left neuroforamen by osteophytes and facet arthropathy. Mild-moderate narrowing of the right neuroforamen. L4-L5: Moderate disc space narrowing with fairly mild degenerative endplate changes. Approximate 5 mm of spondylolisthesis of L4 and L5. There appears to be a bilateral laminectomy defect. Mild broad-based bulging the disc. Mild-moderate bilateral facet arthropathy. No central canal stenosis. Moderate narrowing of the right neuroforamen and slightly more mild narrowing of the left neuroforamen by disc-osteophyte complexes and facet arthropathy. L5-S1: Loss of T2 signal within the disc. Mild degenerative endplate changes. Small broad-based disc-osteophyte complex. Mild-moderate bilateral facet arthropathy. No central canal stenosis. Mild neuroforaminal narrowing. Soft tissues: Homogenous round T2, STIR hyperintense, T1 hypointense mass within the subcutaneous tissues paramedially on right at the level of L5-S1. 2 cm T2 hyperintense, T1 hypointense parapelvic mass within the right kidney very likely a cyst. 1.6 cm mass with similar characteristics within the lower pole of the left kidney also very likely representing a cyst. Vertebral bodies: No compression fractures. Marrow signal: No suspicious marrow signal abnormalities. Procedure Note Edgar Kimball MD - 09/07/2018 HISTORY: Lower back pain with left-sided sciatic symptoms, paresthesias inleft hip and ankle. COMPARISON: None. TECHNIQUE: Exam performed on a 1.5 Ginette high-field MRI scanner. SagittalT1, T2 and STIR, axial T1 and T2 sequences were obtained. FINDINGS: Conus medullaris: Normal. L1-L2: Loss of T2 signal within the disc. Maintenance of disc spaceheight. No focal disc abnormality. No spinal stenosis. L2-L3: Disc height well-maintained. Small right lateral disc bulge. Nospinal stenosis. L3-L4: Severe disc space narrowing and degenerative endplate changes.Approximately 2 mm of spondylolisthesis of L3 on L4. Ysfkw-ujminfnuz-ibuhtjyqbo complex. Moderate facet arthropathy on left and more mildfacet arthropathy on right. Bilateral thickening of the ligamentumflavum. Moderate narrowing of the lateral recesses posteriorly withcrowding of the cauda equina. The left lateral recess is narrowedsomewhat more than the right. Severe narrowing of the left neuroforamenby osteophytes and facet arthropathy. Mild-moderate narrowing of theright neuroforamen. L4-L5: Moderate disc space narrowing with fairly mild degenerativeendplate changes. Approximate 5 mm of spondylolisthesis of L4 and L5.There appears to be a bilateral laminectomy defect. Mild broad-basedbulging the disc. Mild-moderate bilateral facet arthropathy. No centralcanal stenosis. Moderate narrowing of the right neuroforamen and slightlymore mild narrowing of the left neuroforamen by disc-osteophyte complexesand facet arthropathy. L5-S1: Loss of T2 signal within the disc. Mild degenerative endplatechanges. Small broad-based disc-osteophyte complex. Mild-moderatebilateral facet arthropathy. No central canal stenosis. Mildneuroforaminal narrowing. Soft tissues: Homogenous round T2, STIR hyperintense, T1 hypointense masswithin the subcutaneous tissues paramedially on right at the level ofL5-S1. 2 cm T2 hyperintense, T1 hypointense parapelvic mass within theright kidney very likely a cyst. 1.6 cm mass with similar characteristicswithin the lower pole of the left kidney also very likely representing acyst. Vertebral bodies: No compression fractures. Marrow signal: No suspicious marrow signal abnormalities. IMPRESSION: 1. Severe degenerative disc and endplate changes at L3-L4. There ismoderate narrowing of the lateral recesses, left greater than right, byfacet arthropathy and thickening of the ligamentum flavum at this level.There is also severe narrowing of the left neuroforamen by osteophytes andfacet arthropathy. 2. Grade 1 spondylolisthesis of L4 and L5 and, to a lesser degree L3 onL4, probably due to degenerative facet arthropathy. 3. Moderate degenerative disc and endplate changes at L4-L5. Bilaterallaminectomy changes at L4-L5. 4. Masses within the kidneys consistent with cysts. POS - [id number] us Alfonzo Diaz DO IMG MR XSPECIALTY Final Resu lt documented in this encounter Visit Diagnoses Diagnosis Lumbar radiculopathy Thoracic or lumbosacral neuritis or radiculitis, unspecified Lumbar radiculopathy Thoracic or lumbosacral neuritis or radiculitis, unspecified documented in this encounter Care Teams Cooling Pan Tender Relationship Specialty Start Date End Date Wenceslao Aquino MD [address] [place] [address] PCP - General Internal Medicine 08/29/18 documented as of this encounter Additional Source Comments The information contained in this document represents components of the legal health record. It is not the complete legal health record.[facility]
--- OUTSIDE RECORDS SUMMARY | 2024-12-16 09:48 | XMS_ITS | Encounter Summary ---
Author Organization [facility] Address [address] [place] [address] [address] [place] [address] Phone Care Team Providers Care Energy Systems Laboratory Director Name Role Phone Ginny Aquino MD Primary Care Provider [phone] Encounter Details Date Type Department Care Team (Late st Contact Info) Description 12/11/2018 Ancillary Orders [facility], X-Ray - [address] [place] [address] Alfonzo Diaz, DO [address] [place] [address] 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 POS - [id number] Narrative 12/11/2018 3:21 PM EST COMPARISON: None FINDINGS: An AP view of the pelvis was obtained revealing bilateral hip prostheses. A corticated linear calcific density is noted along the lateral margin of the right acetabulum which could reflect a chronic avulsion injury. AP neutral and frog-lateral views of the left hip were obtained. No evidence of acute fracture or dislocation. No yomi hardware loosening. Linear corticated calcific densities along the margins of the lesser and greater trochanters could be related to old avulsion injuries. Procedure Note Ginny Thompson MD - 12/11/2018 COMPARISON: None FINDINGS: An AP view of the pelvis was obtained revealing bilateral hip prostheses.A corticated linear calcific density is noted along the lateral margin ofthe right acetabulum which could reflect a chronic avulsion injury. APneutral and frog-lateral views of the left hip were obtained. No evidenceof acute fracture or dislocation. No yomi hardware loosening. Linearcorticated calcific densities along the margins of the lesser and greatertrochanters could be related to old avulsion injuries. IMPRESSION: Bilateral hip arthroplasties without evidence of acute bony abnormality orfrank hardware loosening. POS - [id number] Alfonzo Diaz DO IMG XR PELVIS Final Result documented in this encounter Visit Diagnoses Diagnosis Pain in left hip Pain in left hip documented in this encounter Care Teams Energy Systems Laboratory Director Relationship Specialty Start Date End Date Ginny Aquino MD [address] [place] [address] PCP - General Internal Medicine 08/29/18 documented as of this encounter Additional Source Comments The information contained in this document represents components of the legal health record. It is not the complete legal health record.[facility]
--- OUTSIDE RECORDS SUMMARY | 2024-12-16 09:49 | XMS_ITS | Encounter Summary ---
Author Organization [facility] Address [address] [place] [address] Care Team Providers Care Transition Mgr Name Role Phone Wenceslao Aquino MD Primary Care Provider [phone] Encounter Details Date Type Department Care Team (Late st Contact Info) Description 12/05/2024 Results Follow-Up Gastroenterology - [address] [place] [id number] Shital Pak MD [address] [facility] [address] [place] [address] Social History Tobacco Use Types Packs/Day Years Used Date Smoking Tobacco: Never Smokeless Tobacco: Never Alcohol Use Standard Drinks/Week Comments Not Currently 0 (1 standard drink = 0.6 oz pur e alcohol) Comments No Sex and Gender Information Value Date Recorded Sex Assigned at Female 07/17/2024 8:48 AM EDT Legal Sex Female 9:27 PM EST Gender Identity Female 07/17/2024 8:48 AM EDT Sexual Orientation Not on file documented as of this encounter Progress Notes * Yolanda Paulino - 12/06/2024 2:23 PM EDT Pt daughter is calling back * Shital Pak MD - 12/05/2024 3:02 PM EDT Please call patient and let her know that her CAT scan looked good. There is no evidence of pancreatic mass or abnormality. There is no obvious cause of her diarrhea or weight loss. Please follow-up with Dr. Sandoval if your symptoms continue. documented in this encounter Plan of Treatment Upcoming Encounters Date Type Department Care Team (Late st Contact Info) Description 04/22/2025 10:30 AM EDT Appointment Radiology Department - [address] [address] 04/22/2025 10:55 AM EDT Appointment Radiology Department - [address] [address] documented as of this encounter Visit Diagnoses Not on filedocumented in this encounter Care Teams Transition Mgr Relationship Specialty Start Date End Date Wenceslao Aquino MD [address] [place] [address] PCP - General Barrow Worker 08/22/18 documented as of this encounter
--- OUTSIDE RECORDS SUMMARY | 2024-12-16 09:49 | XMS_ITS | Encounter Summary ---
Author Organization [facility] Address [address] [place] [address] [address] [place] [address] Phone Care Team Providers Care Admitting Coordinator Name Role Phone Wenceslao Aquino MD Primary Care Provider [phone] Encounter Details Date Type Department Care Team (Late st Contact Info) Description 08/29/2018 Procedure Pass [facility], [address] [place] [address] Social History Tobacco Use Types Packs/Day Years Used Date Smoking Tobacco: Never Assessed Comments Unknown Sex and Gender Information Value Date Recorded Sex Assigned at Not on file Legal Sex Female 8:57 AM EDT Gender Identity Not on file Sexual Orientation Not on file documented as of this encounter Last Filed Vital Signs Vital Sign Reading Time Taken Comments Blood Pressure - - Pulse - - Temperature - - Respiratory Rate - - Oxygen Saturation - - Inhaled Oxygen Concentration - - Weight 59 kg (130 lb) 09/01/2018 6:12 PM EDT Height 154.9 cm (5' 1 ) 09/01/2018 6:12 PM EDT Body Mass Index 24.56 09/01/2018 6:12 PM EDT documented in this encounter Plan of Treatment Upcoming Encounters Date Type Department Care Team (Late st Contact Info) Description 03/26/2025 10:00 AM EST Office Visit [facility] Rheumatology [address] [place] [address] Fadumo Otto DO [address] [facility], [address] [place] [address] [email or web address] documented as of this encounter Visit Diagnoses Not on filedocumented in this encounter Care Teams Admitting Coordinator Relationship Specialty Start Date End Date Wenceslao Aquino MD [address] [place] [address] PCP - General Internal Medicine 08/29/18 documented as of this encounter Additional Source Comments The information contained in this document represents components of the legal health record. It is not the complete legal health record.[facility]
[2024-12-16 10:22] LABS: MANUAL DIFF FLAG NO
[2024-12-16 10:25] LABS: Hematocrit 39.6 % (37.0-47.0); Hemoglobin 12.7 g/dl (12.0-16.0); Imm Gran Abs Auto 0.02 X10*3/uL (0.00-0.03); Imm Gran Pct Auto 0.4 % (0.0-0.4); Lymphocytes Absolute Auto 1.3 X10*3/uL (1.2-4.9); Mean Corpuscular HGB Conc 32.1 g/dl (31.0-35.0); Mean Corpuscular Hemoglobin 35.8 pg (27.0-33.0); NRBC Abs Auto 0.000 X10*3/uL (0.0-0.012); NRBC Pct Auto 0.0 /100WBC (0.0-0.2); Platelet Count 455 X10*3/uL (160-400); Red Blood Count 3.55 X10*6/uL (4.20-5.50); White Blood Count 5.0 X10*3/uL (4.8-10.8)
[2024-12-16 10:30] LABS: Mean Corpuscular Volume 111.5 fL (80.0-98.0)
[2024-12-16 10:49] LABS: Alanine Aminotransferase 21 U/L (0-31); Albumin Level 4.8 g/dL (3.5-5.0); Alkaline Phosphatase 60 U/L (39-117); Anion Gap 17 (12-20); Aspartate Amino Transferase 34 U/L (5-31); Blood Urea Nitrogen 19 mg/dL (9-16); Calcium 10.2 mg/dL (8.4-10.2); Carbon Dioxide 26 mmol/L (22-29); Chloride 101 mmol/L (96-108); Creatinine Clr Calc Pharmacy 26.9; Estimated Glomerular Filt Rate 45; Magnesium 2.4 mg/dL (1.6-2.6); Potassium 3.8 mmol/L (3.3-5.1); Sodium 140 mmol/L (135-145); Total Protein 8.0 g/dL (6.5-8.0)
--- NOTE | 2024-12-16 11:06 | ED_ITS ---
HPI - General Adult General Chief complaint: General Medical Stated complaint: DIARRHEA WEAK Time Seen by Provider: 12/16/24 11:06 Source: patient, family () and EMS Mode of arrival: EMS Limitations: no limitations History of Present Illness ED Provider: HPI narrative: 89-year-old woman with a history of myeloproliferative disorder follows [facility], I will hydroxyurea, in July of this year was admitted with elevated LFTs, fever, workup for cholangitis, ERCP with findings of likely passed stone that that point she has also had pale stools, she is here reporting abnormal stools overnight, and she also reports history of and a vaginal fistula and was recently on antibiotics for UTI, patient is alert and oriented x4 but states that she has Alzheimer's dementia and she is more clear in the mornings then in the evenings, she is here with the who is extremely anxious regarding her health but they both state that they are safe at home and they would like to return to home, sounds like their children wanted to take the mom in but they declined. Related Data Home Medications ?Medication ?Instructions ?Recorded ?Confirmed diltiazem HCl 120 mg 120 mg PO DAILY 08/17/23 capsule,extended release 12 hr vitamins A,C,A-ieuc-batgax 4,296 1 cap PO BID 08/17/23 10/29/24 mcg-226 mg-90 mg capsule (PreserVision AREDS) aspirin 81 mg tablet,delayed 81 mg PO DAILY 01/16/24 0 10/29/24 release duloxetine 20 mg capsule,delayed 20 mg PO BID 07/12/24 10/29/24 release hydroxyurea 500 mg capsule 500 mg PO DAILY 07/12/24 hydroxyzine pamoate 25 mg capsule 25 mg PO TID PRN Anx iety 07/12/24 10/29/24 metoprolol succinate 100 mg 50 mg PO DAILY 07/12/24 tablet,extended release 24 hr Previous Rx's ?Medication ?Instructions ?Recorded cefuroxime axetil 500 mg tablet 500 mg PO BID #10 tabs 07/14/24 donepezil 10 mg tablet 10 mg PO BEDTIME #90 tabs Allergies Allergy/AdvReac Type Severity Reaction Status Date / Time perfume Allergy Unknown UNKNOWN Verified 12/16/24 09:18 [email or web address] (From Myrbetriq) AdvReac Intermediate Nausea Verified 12/16/24 09:18 Review of Systems 2 Constitutional: Constitutional: Reports as per [facility] Past Medical History Medical History FHx: cholecystectomy Cataracts, bilateral FH: bilateral hip replacements High cholesterol Hypertension Restless legs Arthritis Surgical History History of appendectomy H/O: hysterectomy History of lumbar fusion Social History Social History Household Members: Spouse Housing: House Do you presently have visiting nurse or other home services: No Patient Tobacco Use Status: Never used Tobacco Advance Directives: Yes Advance Directives Information Provided: No Advance Directives on File: No Do you have a plan to hurt others: No Plan service: No Physical Exam ED Exam Exam: General: ?Elderly woman of stated age ? ?slightly dry oral mucosa, no scleral icterus ? Neck: Supple, no LAD ? ?CV: S1-S2 ? ?Resp: ?No wheezing rales rhonchi no stridor moving air well ? Abd: ?Bowel sounds are present, no tenderness no rebound no rigidity ? ?MSK: FROM, strength 5/5 all extremities ? Skin: Warm, dry, intact, no jaundice ? ?Neuro: ?Alert and oriented x3, moving upper and lower extremities symmetrically, no obvious facial asymmetry noted, cranial nerves 2-12 intact Vital Signs: Vital Signs - 24 hr 12/16/24 09:13 12/16/24 12:23 Temperature 98 F Pulse Rate 88 89 Respiratory Rate 18 16 Blood Pressure 156/75 H Pulse Oximetry 99 99 Oxygen Delivery Method Room Air Room Air BMI result Body Mass Index 25.0 Medications Administered Discontinued Medications Generic Name Dose Route Start Last Admin Trade Name Freq PRN Reason Stop Dose Admin Sodium Chloride 1,000 mls @ 999 mls/hr 12/16/24 11:45 12/16/24 12:59 Ns IV 12/16/24 12:45 Infused .Q1H1M ALIDA Infusion Medical Decision Making Medical Decision Making MDM Narrative: 11:46 AM 12/16/2024 (Dr. Juan Winslow): And sounds like patient has had some abnormal stools and in the summer of this year presented to emergency department quite sick with a fever, elevated LFTs and concern for ascending cholangitis in the setting of prior cholecystectomy, her is at bedside quite anxious about her health, patient herself is alert, calm, denies abdominal pain, has had no dysuria but reports and a vaginal fistula finished antibiotics, denies decreased p.o. intake blood work does reveal some evidence of slight dehydration, UTI is a consideration, I spoke to the patient regarding supported home they state they have enough support at home and would not be interested in me discussing rehab placement and ultimately they would like to take her home, it sounds like they are children I involved the patient's care but are not living locally, I did not find numbers to give him a call in our system. Ambulatory trial prior to disposition 1:12 PM 12/16/2024 (Dr. Juan Winslow): Urinalysis without any evidence of infection, if passes ambulatory trial we will discharge Differential Diagnosis Differential Diagnoses: The differential diagnosis associated with the presentation includes (UTI, dehydration, failure to thrive, trauma, ACS, electrolyte derangements) Admission/Observation Consideration of admission/observation: Escalation of care including admission/observation considered Lab Data MDM Lab Attestation statement: I reviewed the patient's lab results. 12/16/24 10:16 12/16/24 10:16 Labs: Lab Results 12/16/24 12/16/24 Range/Units 10:16 12:26 WBC 5.0 (4.8-10.8) X10*3/uL RBC 3.55 L D (4.20-5.50) X10*6/uL Hgb 12.7 (12.0-16.0) g/dl Hct 39.6 D (37.0-47.0) % MCV 111.5 H (80.0-98.0) fL MCH 35.8 H (27.0-33.0) pg MCHC 32.1 (31.0-35.0) g/dl RDW 13.4 (11.0-16.0) % Plt Count 455 H D (160-400) X10*3/uL MPV 9.3 L (9.4-12.3) fL Immature Gran % (Auto) 0.4 (0.0-0.4) % Neut % (Auto) 62.3 (45-73) % Lymph % (Auto) 25.7 (20-40) % Boyle % (Auto) 9.4 (2-11) % Eos % (Auto) 1.4 (0-4) % Baso % (Auto) 0.8 (0-2) % Lymph # (Auto) 1.3 (1.2-4.9) X10*3/uL Boyle # (Auto) 0.5 (0.1-1.2) X10*3/uL Eos # (Auto) 0.1 (0.0-0.4) X10*3/uL Baso # (Auto) 0.0 (0.0-0.2) X10*3/uL Abs Immat Gran (auto) 0.02 (0.00-0.03) X10*3/uL Absolute Neuts (auto) 3.1 (2.0-8.3) x10*3/uL Absolute Nucleated RBC 0.000 (0.0-0.012) X10*3/uL Nucleated RBC % (auto) 0.0 (0.0-0.2) /100WBC Sodium 140 (135-145) mmol/L Potassium 3.8 (3.3-5.1) mmol/L Chloride 101 (96-108) mmol/L Carbon Dioxide 26 (22-29) mmol/L Anion Gap 17 (12-20) BUN 19 H (9-16) mg/dL Creatinine 1.13 (0.5-1.4) mg/dL Estim Creat Clear Calc 26.9 Estimated GFR 45 Random Glucose 113 (60-115) mg/dL Calcium 10.2 D (8.4-10.2) mg/dL Magnesium 2.4 (1.6-2.6) mg/dL Total Bilirubin 0.5 (0.0-1.0) mg/dL AST 34 H (5-31) U/L ALT 21 (0-31) U/L Alkaline Phosphatase 60 (39-117) U/L Total Protein 8.0 (6.5-8.0) g/dL Albumin 4.8 (3.5-5.0) g/dL Urine Color Yellow Urine Appearance Clear Urine pH 8.5 (5.0-9.0) Ur Specific [place] <= 1.005 (1.005-1.025) Urine Protein Negative (Neg-Trace) mg/dL Urine Glucose (UA) Negative (Negative) mg/dL Urine Ketones Negative (Negative) mg/dL Urine Blood Negative (Negative) Urine Nitrite Negative (Negative) Ur Leukocyte Esterase Trace H (Negative) Urine RBC 0-2 (0-2) /HPF Urine WBC 0-5 (0-5) /HPF Ur Squamous Epith Cells 0-2 (0-2) /HPF Other Crystals Present Urine Bacteria None Seen (None Seen) Hyaline Casts 0-2 (0-2) /LPF Independent Interpretation I performed an independent interpretation of an: EKG (84 beats per minute otherwise normal ECG without dysrhythmia, AV brody blocks or ST-T changes to suspect underlying ACS, my independent interpretation) Independent Historian Clinical information obtained from an independent historian. 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) Discharge Plan Discharge Clinical Impression: Feeling weak, Dehydration Additional Instructions: There was some evidence for slight dehydration based on your blood work, your vital signs were reassuring, you have had no fevers, your blood work otherwise unremarkable, urine without any evidence of infection, you received fluids, we are able to walk and I was reassured very much by physical examination today, we discussed whether you are able to be discharged home in his safe matter and you and your would like to be discharged and you have enough support at home, any other considerations or concerns anything else changes please do not hesitate to come back to emergency department for re-evaluation Prescriptions: No Action hydroxyurea 500 mg capsule 500 mg PO DAILY hydroxyzine pamoate 25 mg capsule 25 mg PO TID PRN (Reason: Anxiety) duloxetine 20 mg capsule,delayed release(DR/EC) 20 mg PO BID metoprolol succinate 100 mg tablet extended release 24 hr 50 mg PO DAILY cefuroxime axetil 500 mg tablet 500 mg PO BID Qty: 10 0RF aspirin 81 mg tablet,delayed release (DR/EC) 81 mg PO DAILY diltiazem HCl 120 mg capsule,extended release 12 hr 120 mg PO DAILY PreserVision AREDS 4,296 mcg-226 mg-90 mg capsule 1 cap PO BID donepezil 10 mg tablet 10 mg PO BEDTIME Qty: 90 1RF Print Language: Ken[place]
[2024-12-16 12:23] VITALS: BP 156/75; PULSE 89; RESP 16; O2SAT 99
[2024-12-16 12:34] LABS: Appearance Urine Clear; Glucose Urine UA Negative (Negative); PH 8.5 (5.0-9.0); Specific Gravity - Urine <= 1.005 (1.005-1.025); UMIC TRIGGER UACC YES
[2024-12-16 12:51] LABS: Other Crystals Urine Present
[2024-12-16 13:31] VITALS: BP 150/75; PULSE 89; RESP 16; TEMP 36.6; O2SAT 99
== END 2024-12-16 13:31 | disposition home or self-care (01) ==
PROVIDERS: Physician Assistant Medical; Emergency Provider Emergency Medicine; PCP Internal Medicine
DX: E86.0 Dehydration (principal); R19.7 Diarrhea, unspecified; R53.1 Weakness; R11.2 Nausea with vomiting, unspecified; Z79.899 Other long term (current) drug therapy
CPT/HCPCS: 36415; 80053; 81001; 83735; 85025; 93005; 96360; 99284

== ENCOUNTER → 2024-12-16 09:21 | Outpatient (BNV) | payer MEDICARE, SELFPAY | PROVIDERS: Emergency Provider Emergency Medicine; PCP Internal Medicine; Visit Provider Internal Medicine Cardiovascular Disease | DX: R42 Dizziness and giddiness (principal) | CPT/HCPCS: 93010 ==